=== PATIENT | female | born 1960 | race Caucasian/White ===

== ENCOUNTER 2021-05-02 08:33 | Outpatient (REF) | payer BC, SELFPAY ==
--- NOTE | ~2021-05-02 | MM_ITS ---
EXAMINATION: MM SCREENING DIGITAL BREAST TOMOSYNTHESIS, BILATERAL CLINICAL INFORMATION: Screening. Asymptomatic. The lifetime risk of breast cancer based on the Tyrer-Cuzick Model is 6%. COMPARISON: Mammography: 02/15/2020, 02/12/2019, 08/11/2018, 02/04/2018 TECHNIQUE: Digital breast tomosynthesis is performed in both the craniocaudal and mediolateral oblique views along with computer-aided detection (CAD). Synthesized 2D images are generated from the tomosynthesis. FINDINGS: The breasts are heterogeneously dense, which may obscure small masses (ACR BI-RADS breast composition Category c). Breast parenchymal pattern borders on extremely dense. Distribution of the glandular tissue is similar to prior exams. There is no developing density or interval mass or architectural abnormality. Again, there are scattered bilateral stable punctate calcifications in each breast. No significant changes. MM/MM tomosynthesis screening BI IMPRESSION: No mammographic evidence of malignancy. ASSESSMENT: BI-RADS 2: Benign RECOMMENDATION: Routine annual mammography screening. This patient's information was entered into a reminder system with a target due date for their next mammogram.
== END 2021-05-02 08:34 | disposition home or self-care (01) ==
LOC: HO.MAMMO 08:33
PROVIDERS: PCP Internal Medicine; Visit Provider Internal Medicine
DX: Z12.31 Encounter for screening mammogram for malignant neoplasm of breast (principal)
CPT/HCPCS: 77063; 77067

== ENCOUNTER 2021-11-15 11:45 | Outpatient (REF) | payer BC, SELFPAY ==
--- NOTE | ~2021-11-15 | US_ITS ---
EXAMINATION: US VENOUS WITH DOPPLER UPPER EXTREMITY, LEFT CLINICAL INFORMATION: Pain. COMPARISON: None. TECHNIQUE: Ultrasound of the upper extremity is performed using compression sonography and color and pulse Doppler flow with assessment of augmentation of flow. There is also imaging and Doppler assessment of the jugular and subclavian veins. Spectral analysis with color-flow imaging is performed. FINDINGS: Respiratory variation, normal compression, and augmented flow are noted throughout the upper extremity including the axillary, brachial, cubital, and radial and ulnar veins. There is normal flow in the internal jugular and subclavian veins. There is no visible deep or superficial thrombophlebitis. US/US venous duplex UE LT IMPRESSION: No DVT demonstrated in the left upper extremity.
== END 2021-11-15 11:46 | disposition home or self-care (01) ==
LOC: HO.US 11:45
PROVIDERS: PCP Internal Medicine; Visit Provider Internal Medicine
DX: M79.602 Pain in left arm (principal); M79.89 Other specified soft tissue disorders
CPT/HCPCS: 93971

== ENCOUNTER 2021-11-20 09:09 | Outpatient (REF) | payer BC, SELFPAY ==
[2021-11-20 11:17] LABS: MANUAL DIFF FLAG NO
[2021-11-20 11:24] LABS: Basophils Percent Auto 0.4 % (0-2); Eosinophils Absolute Auto 0.2 X10*3/uL (0.0-0.4); Eosinophils Percent Auto 2.4 % (0-4); Hematocrit 38.2 % (37.0-47.0); Hemoglobin 12.4 g/dl (12.0-16.0); Imm Gran Abs Auto 0.02 X10*3/uL (0.00-0.03); Imm Gran Pct Auto 0.3 % (0.0-0.4); Lymphocytes Absolute Auto 2.4 X10*3/uL (1.2-4.9); Lymphocytes Percent Auto 35.5 % (20-40); Mean Corpuscular HGB Conc 32.5 g/dl (31.0-35.0); Mean Corpuscular Hemoglobin 29.1 pg (27.0-33.0); Mean Corpuscular Volume 89.7 fL (80.0-98.0); Mean Platelet Volume 11.9 fL (9.4-12.3); Monocytes Absolute Auto 0.4 X10*3/uL (0.1-1.2); Monocytes Percent Auto 5.9 % (2-11); Neutrophils Absolute Auto 3.8 x10*3/uL (2.0-8.3); Neutrophils Percent Auto 55.5 % (45-73); Platelet Count 235 X10*3/uL (160-400); Red Blood Count 4.26 X10*6/uL (4.20-5.50); Red Cell Distribution Width 12.7 % (11.0-16.0); White Blood Count 6.8 X10*3/uL (4.8-10.8)
[2021-11-20 11:45] LABS: Appearance Urine TURBID; Color Urine YELLOW; Glucose Urine UA NEG (NEG); Leukocyte Esterase Urine NEG (NEG); Nitrite Urine NEG (NEG); Specific Gravity - Urine >= 1.030 (1.005-1.025); UACC Culture Trigger NO; Urine Blood TRACE (NEG); Urine Ketones NEG (NEG); Urine Protein 1+ MG/DL (NEG-TRACE)
[2021-11-20 11:53] LABS: Alanine Aminotransferase 179 U/L (0-31); Albumin Level 4.2 g/dL (3.5-5.0); Alkaline Phosphatase 97 U/L (39-117); Anion Gap 12 (12-20); Aspartate Amino Transferase 138 U/L (5-31); Bilirubin Total 0.6 mg/dL (0.0-1.0); Blood Urea Nitrogen 14 mg/dL (9-16); Calcium 9.5 mg/dL (8.4-10.2); Carbon Dioxide 25 mmol/L (22-29); Chloride 106 mmol/L (96-108); Cholesterol 171 mg/dL; Estimated Glomerular Filt Rate > 60; Glucose Fasting 204 mg/dL (60-99); HDL Cholesterol 47 mg/dL; LDL Cholesterol Calculated 98 mg/dl; Potassium 3.9 mmol/L (3.3-5.1); Sodium 139 mmol/L (135-145); Total Protein 7.7 g/dL (6.5-8.0); Triglycerides 131 mg/dL
[2021-11-20 11:55] LABS: TSH reflex Free T4 1.36 uIU/mL (0.32-4.0); Vitamin D 25-OH Total 30.8 ng/mL (>30)
[2021-11-20 12:06] LABS: Erythrocyte Sedimentation Rate 5 MM/HR (0-20)
[2021-11-20 12:16] LABS: Amorphous Sediment Urine 4+ /LPF
[2021-11-20 12:17] LABS: Squamous Epithelial Cell Urine 1+ /LPF
[2021-11-20 12:18] LABS: Bacteria Urine 2+ /LPF; RBC Urine 0 /HPF (0); WBC Urine 0 /HPF (0-4)
== END 2021-11-20 09:10 | disposition home or self-care (01) ==
LOC: HO.LAB 09:09
PROVIDERS: Visit Provider Internal Medicine
DX: Z00.00 Encounter for general adult medical examination without abnormal findings (principal); M79.602 Pain in left arm; M79.89 Other specified soft tissue disorders; I10 Essential (primary) hypertension; E78.00 Pure hypercholesterolemia, unspecified; E55.9 Vitamin D deficiency, unspecified
CPT/HCPCS: 36415; 80053; 80061; 81001; 82306; 84443; 85025; 85652

== ENCOUNTER 2021-12-13 09:08 | Outpatient (REF) | payer BC, SELFPAY ==
--- NOTE | ~2021-12-13 | XR_ITS ---
EXAMINATION: XR ELBOW, LEFT CLINICAL INFORMATION: Left elbow pain COMPARISON: 06/03/2018 TECHNIQUE: AP, lateral, and oblique views of the left elbow. FINDINGS: Evidence of a remote, healed radial head fracture with mild articular surface incongruity. This has not significantly changed. There is no acute osseous abnormality. No joint effusion. No new abnormality. Minimal marginal osteophyte formation. XR/XR elbow LT min 3V IMPRESSION: No acute osseous abnormality. Minimal degenerative findings.
== END 2021-12-13 09:09 | disposition home or self-care (01) ==
LOC: HO.HMGCX 09:08
PROVIDERS: PCP Internal Medicine; Visit Provider Internal Medicine
DX: M25.522 Pain in left elbow (principal)
CPT/HCPCS: 73080

== ENCOUNTER → 2021-12-27 09:33 | Outpatient (REF) | payer BC, SELFPAY ==
--- NOTE | 2021-12-27 09:37 | CA_ITS ---
Transthoracic Echocardiogram Patient (Last, First, Middle): Monique Mariano J Gender: Female Date of : 1960 Age: 61 Procedure Date: 12/27/2021 Procedure Type: Transthoracic Echocardiogram Location: OP Height: 162.56 cm Weight: 90.72 kg BSA: 1.96 m2 Heart Rate: bpm BP: 128 / 78 mmHg Funeral Service Apprentice: Referring MD: Portillo Guy MD Symptoms: R00.2 - Palpitations Study Quality: Fair ECG Rhythm: Sinus Conclusions: - The left ventricular systolic function is normal. The calculated ejection fraction is 72% by biplane method. - No obvious valvular pathology seen on this study. Findings Left Ventricle Normal left ventricular cavity size. There is mildly increased left ventricular wall thickness. The left ventricular systolic function is normal. The calculated ejection fraction is 72% by biplane method. There is no evidence of regional wall motion abnormalities. Diastolic function is normal for age. Right Ventricle Normal right ventricular cavity size and systolic function. Atria Both atria are normal in size. Aortic Valve There is a normal trileaflet aortic valve. There is no aortic valve stenosis. There is no aortic valve regurgitation. Mitral Valve The mitral valve appears normal. There is no mitral valve regurgitation. There is no mitral valve stenosis. Pulmonic Valve The pulmonic valve was not well visualized. Tricuspid Valve There is no tricuspid valve regurgitation. The pulmonary artery systolic pressure is normal. Great Vessels The sinuses of valsalva and sino tubular ridge are normal in size. Venous The inferior vena cava is normal in size and collapses greater than 50% with inspiration. Pericardium/Pleural There is no evidence of pericardial effusion. Prior Study Comparison No significant change compared to prior study dated: 04/09/2017. Recommendations, Care & Conclusions No obvious valvular pathology seen on this study. Measurements 2D Linear Measurements IVSd: 1.16 0.6-0.9/0.6-1.0 cm LVIDd: 4.34 3.9-5.3/4.2-5.9 cm LVIDd Index: 2.21 2.4-3.2/2.2-3.1 cm/m2 LVIDs: 2.46 2.0-3.6 cm LVPWd: 1.08 0.7-1.1 cm LA Diam: 3.70 2.7-3.8/3.0-4.0 cm LAIDs Index: 1.89 1.5-2.3 cm/m2 LV Mass: 211.27 67-162/88-224 g LV Mass Index: 107.79 43-95/49-115 g/m2 LVOT Diam: 2.10 3.0+(-)1.3 cm 2D Systolic Function EF 4C: 71.60 >55% EF 2C: 69.70 >55% EF BiP: 71.80 >55% Mitral Valve MV Pk E: 0.74 MV PK A: 0.75 MV Decel Time: 223.00 E/A: 1.00 E'Lateral: 16.10 E'Medial: 8.05 E/E' Med: 9.20 E/E' Lat: 4.60 PHT: 65.00 MVA PHT: 3.38 Decel [place]: 3.32 Aortic Valve AoV Pk Darell: 1.64 AoV Mn Darell: 1.12 AoV VTI: 0.35 AoV Pk Grad: 11.00 Aov Mn Grad: 6.00 TAMMY Cont.VTI: 2.09 LVOT LVOT Pk Darell: 1.07 LVOT Mn Darell: 0.77 LVOT VTI: 0.21 LVOT Pk Grad: 5.00 LVOT Mn Grad: 3.00 LVOT Diam: 2.10 LVOT Area: 3.46 Diastolic Function MV Pk E: 0.74 MV Pk A: 0.75 E/A: 1.00 E'Medial: 8.05 E/E' Med: 9.20 E' Laterial: 16.10 E/E' Lat: 4.60 Tricuspid Valve TR Pk Darell: 2.28 TR Pk Grad: 21.00 RA Press: 3.00 RVSP: 24.00 Great Vessels Aorta Sinus of Valsalva: 3.00 2.0-3.[address] [place]: 2.80 1.7-3.4 cm Pulmonary Valve PV Pk Darell: 1.08 Peak PV Grad: 5.00 Updated in Other Vendor System with Status of Final [place] MD electronically signed on 12/29/2021 4:37:40 PM with status of Final
== END ==
LOC: HO.CARD 09:33
PROVIDERS: PCP Internal Medicine; Visit Provider Internal Medicine
DX: I47.1 Supraventricular tachycardia (principal); R00.2 Palpitations
CPT/HCPCS: 93306

== ENCOUNTER 2022-01-29 10:55 | Outpatient (REF) | payer BC, SELFPAY ==
--- NOTE | ~2022-01-29 | XR_ITS ---
EXAMINATION: XR SHOULDER, LEFT CLINICAL INFORMATION: Left arm pain COMPARISON: None TECHNIQUE: Four views of the left shoulder. FINDINGS: Visualized portion of the proximal left humerus demonstrate no fracture. Humeral head demonstrates good articulation with the glenoid fossa. Mild hypertrophic changes of the acromioclavicular joint. Visualized left-sided ribs and lung parenchyma are unremarkable. XR/XR shoulder LT min 2V IMPRESSION: Minimal degenerative changes of the left shoulder.
== END 2022-01-29 10:56 | disposition home or self-care (01) ==
LOC: HO.HMGCX 10:55
PROVIDERS: Visit Provider Internal Medicine
DX: M25.512 Pain in left shoulder (principal); M79.602 Pain in left arm; M79.89 Other specified soft tissue disorders
CPT/HCPCS: 73030

== ENCOUNTER → 2022-02-12 11:50 | Outpatient (BNVA) | payer BC, SELFPAY | PROVIDERS: PCP Internal Medicine; Referring Provider Internal Medicine; Visit Provider Nurse Practitioner | DX: Z13.89 Encounter for screening for other disorder (principal) ==

== ENCOUNTER 2022-03-12 02:41 | Inpatient (IN) | payer BC, SELFPAY ==
[2022-03-12] VITALS (7 sets, daily range): BP systolic 115–152; BP diastolic 67–77; PULSE 65–78; RESP 15–18; TEMP 36.4–36.6; O2SAT 94–97; BMI 35.9
--- NOTE | ~2022-03-12 | CT_ITS ---
EXAMINATION: CT ABDOMEN AND PELVIS WITHOUT CONTRAST CLINICAL INFORMATION: Flank pain COMPARISON: 05/31/2008 TECHNIQUE: Multidetector volumetric imaging was performed from the superior aspect of the liver through the pubic symphysis. Sagittal and coronal reformatted images were obtained on the technologist's workstation. This CT examination was performed using dose optimization techniques as appropriate, variously including the following: *Automated exposure control *Adjustment of mA and/or kV according to patient size (this includes techniques or standardized protocols for targeted exams where dose is matched to indication/reason for exam; i.e. extremities or head) *Use of iterative reconstruction technique DLP: 891 mGy-cm FINDINGS: LUNG BASES: The visualized lung bases are unremarkable. LIVER, GALLBLADDER, AND BILIARY TREE: The liver is normal in size, shape, and attenuation. No focal hepatic lesion or biliary ductal dilatation is present. Patient is status post cholecystectomy. PANCREAS: Unremarkable. SPLEEN: Unremarkable. ADRENAL GLANDS: Unremarkable. KIDNEYS AND URETERS: There is moderate left hydroureteronephrosis with a 7 mm calculus at or just beyond the left ureterovesicular junction. No right-sided hydronephrosis. BLADDER: Mildly distended with a 7 mm calculus at or just beyond the left ureterovesicular junction. GASTROINTESTINAL TRACT: No evidence of bowel obstruction or significant wall thickening. No free fluid or free air is seen. ABDOMINAL WALL: No significant hernia is appreciated. LYMPH NODES: Normal. VASCULAR: Scattered atherosclerotic calcifications are noted. PELVIC VISCERA: Unremarkable. OSSEOUS STRUCTURES: Unremarkable. CT/CT abdomen pelvis wo con IMPRESSION: Moderate left hydroureteronephrosis with a 7 mm calculus at or just beyond the left ureterovesicular junction.
--- NOTE | ~2022-03-12 | FL_ITS ---
EXAMINATION: XR FLUOROSCOPY WITH IMAGES CLINICAL INFORMATION: Ureteroscopy, laser retrograde, left side. COMPARISON: CT of 03/12/2022. TECHNIQUE: Fluoroscopy performed by Dr. Loyola. FLUOROSCOPY TIME: 17.4%) minutes FLUOROSCOPIC IMAGES: Images: 2 DLP: 7.43 mGy-cm FINDINGS: One image demonstrates some contrast within the distal left ureter with question density and some periureteral contrast. The second image demonstrates a wire in place in the expected location of the left ureter. FL/FL guidance in OR IMPRESSION: Left retrograde ureterography.
[2022-03-12 03:20] LABS: Basophils Percent Auto 0.3 % (0-2); Eosinophils Absolute Auto 0.2 X10*3/uL (0.0-0.4); Eosinophils Percent Auto 2.8 % (0-4); Hematocrit 35.9 % (37.0-47.0); Hemoglobin 11.9 g/dl (12.0-16.0); Imm Gran Abs Auto 0.02 X10*3/uL (0.00-0.03); Imm Gran Pct Auto 0.3 % (0.0-0.4); Lymphocytes Absolute Auto 1.8 X10*3/uL (1.2-4.9); Lymphocytes Percent Auto 28.5 % (20-40); MANUAL DIFF FLAG NO; Mean Corpuscular HGB Conc 33.1 g/dl (31.0-35.0); Mean Corpuscular Hemoglobin 29.4 pg (27.0-33.0); Mean Corpuscular Volume 88.6 fL (80.0-98.0); Mean Platelet Volume 11.8 fL (9.4-12.3); Monocytes Absolute Auto 0.5 X10*3/uL (0.1-1.2); Monocytes Percent Auto 8.1 % (2-11); Neutrophils Absolute Auto 3.8 x10*3/uL (2.0-8.3); Platelet Count 211 X10*3/uL (160-400); Red Blood Count 4.05 X10*6/uL (4.20-5.50); Red Cell Distribution Width 12.7 % (11.0-16.0); White Blood Count 6.3 X10*3/uL (4.8-10.8)
[2022-03-12 03:21] LABS: Appearance Urine CLEAR; Color Urine YELLOW; Glucose Urine UA >=1000 MG/DL (NEG); Leukocyte Esterase Urine NEG (NEG); Nitrite Urine NEG (NEG); UACC Culture Trigger NO; Urine Blood 1+ (NEG); Urine Ketones NEG (NEG); Urine Protein NEG (NEG-TRACE)
[2022-03-12 03:27] LABS: Bacteria Urine 2+ /LPF; Squamous Epithelial Cell Urine 2+ /LPF
[2022-03-12 03:40] LABS: Alanine Aminotransferase 167 U/L (0-31); Albumin Level 3.9 g/dL (3.5-5.0); Alkaline Phosphatase 141 U/L (39-117); Anion Gap 16 (12-20); Aspartate Amino Transferase 164 U/L (5-31); Bilirubin Direct < 0.2 mg/dL (0.0-0.5); Bilirubin Total 0.4 mg/dL (0.0-1.0); Blood Urea Nitrogen 15 mg/dL (9-16); Calcium 9.8 mg/dL (8.4-10.2); Carbon Dioxide 21 mmol/L (22-29); Chloride 103 mmol/L (96-108); Creatinine Clr Calc Pharmacy 64.1; Estimated Glomerular Filt Rate 54; Glucose Random 462 mg/dL (60-115); Lipase 46 U/L (8-78); Potassium 4.7 mmol/L (3.3-5.1); Sodium 135 mmol/L (135-145); Total Protein 7.8 g/dL (6.5-8.0)
[2022-03-12 03:54] LABS: Acetone, serum QL Negative (Negative)
--- NOTE | 2022-03-12 04:03 | ED_ITS ---
HPI - Female Genitourinary General Chief complaint: Urogenital-Female Stated complaint: kidney stones Time Seen by Provider: 03/12/22 03:39 Source: patient and other Mode of arrival: ambulatory History of Present Illness HPI Narrative: 61-year-old female who presents with left flank pain that started approximately midnight and is radiating into the left lower quadrant but she denies any dysuria and denies any nausea or vomiting. Patient states she did have previous kidney stones but that was years ago. She also denies any fever chills. She does endorse that she has polyuria as well as polydipsia and has an appointment this Saturday with Dr. Guy. Related Data Home Medications Medication Instructions Recorded Confirmed clobetasol 0.05 % lotion 1 appl TOPICAL BID PRN 10/18/20 11/15/21 Previous Rx's Medication Instructions Recorded ibuprofen 800 mg tablet 800 mg PO TID PRN 90 Days #270 tab 05/15/21 olmesartan 40 mg-amlodipine 5 1 tab PO DAILY #90 tab 09/08/21 mg-hydrochlorothiazide 25 mg tablet metoprolol succinate 25 mg 25 mg PO DAILY #90 tab 11/15/21 tablet,extended release 24 hr pantoprazole 40 mg tablet,delayed 40 mg PO DAILY #90 tab 11/15/21 release peg 3350-electrolytes 236 240 ml PO Q10M 1 Days #4000 ml 02/12/22 gram-22.74 gram-6.74 gram-5.86 gram solution (Golytely) sucralfate 1 gram tablet (Carafate) 1 g PO DAILY #30 tab 02/12/22 ergocalciferol (vitamin D2) 1,250 1,250 mcg PO QWEEK #12 cap 02/19/22 mcg (50,000 unit) capsule (Vitamin D2) Allergies Allergy/AdvReac Type Severity Reaction Status Date / Time carbamazepine [From Tegretol] Allergy Intermediate RASH Verified 03/12/22 02:43 divalproex sodium Allergy Intermediate RASH Verified 03/12/22 02:43 [From Depakote] Iodinated Contrast Media Allergy Intermediate HIVES Verified 03/12/22 02:43 [IV Dye, Iodine Containing] IVP dye Allergy Unknown hives Uncoded 03/12/22 02:43 Review of Systems Review of Systems: Pertinent positives and negatives as stated in HPI 10 point review of systems is otherwise PMFSH Past Medical History Source: nursing notes reviewed Medical History Benign essential hypertension GERD (gastroesophageal reflux disease) Migraine Obesity (BMI 30-39.9) SVT (supraventricular tachycardia) (Unknown) Vitamin D deficiency Surgical History History of ankle surgery S/P appendectomy S/P breast biopsy S/P cholecystectomy Family History Family History Father Heart disease Hypertension Mother Heart disease Hypertension Diabetes mellitus Maternal Grandmother No problems noted. Maternal Grandfather No problems noted. Paternal Grandfather No problems noted. 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 GENERAL: Well developed, well nourished, in no acute distress. HEAD: Normocephalic/atraumatic EYES: PERRLA, EOMI EARS: Ext canals without abnormality OROPHARYNX: no oral lesions noted, posterior pharynx clear LUNGS: Normal breath sounds. No adventitious sounds or accessory muscle use. SpO2<94> CARDIOVASCULAR: Regular rate and rhythm without noted murmurs ABDOMEN: Soft, non-tender, non-distended with bowel sounds, no CVA tenderness NEUROLOGIC: Alert and oriented x 4. Strength and sensation to light touch were grossly intact x 4. Course Course Course Narrative: 61-year-old female with history and clinical presentation consistent with renal colic. On review of all investigations patient is noted to be hyperglycemic without the presence of acetones and she also has a 7 mm stone with hydronephrosis. She is receiving IV fluids, pain medications in this case was discussed with the urologist who recommends admission to Medicine, pain control. I discussed the case with the inpatient hospitalist who accepts the patient. Patient was informed of all results and plans. MDM - Female Genitourinary Lab Data Result diagrams: 03/12/22 03:16 03/12/22 03:16 Labs: Lab Results 03/12/22 03/12/22 03/12/22 Range/Units 03:11 03:16 03:16 WBC 6.3 (4.8-10.8) X10*3/uL RBC 4.05 L (4.20-5.50) X10*6/uL Hgb 11.9 L (12.0-16.0) g/dl Hct 35.9 L (37.0-47.0) % MCV 88.6 (80.0-98.0) fL MCH 29.4 (27.0-33.0) pg MCHC 33.1 (31.0-35.0) g/dl RDW 12.7 (11.0-16.0) % Plt Count 211 (160-400) X10*3/uL MPV 11.8 (9.4-12.3) fL Immature Gran % (Auto) 0.3 (0.0-0.4) % Neut % (Auto) 60.0 (45-73) % Lymph % (Auto) 28.5 (20-40) % [place] % (Auto) 8.1 (2-11) % Eos % (Auto) 2.8 (0-4) % Baso % (Auto) 0.3 (0-2) % Lymph # (Auto) 1.8 (1.2-4.9) X10*3/uL [place] # (Auto) 0.5 (0.1-1.2) X10*3/uL Eos # (Auto) 0.2 (0.0-0.4) X10*3/uL Baso # (Auto) 0.0 (0.0-0.2) X10*3/uL Abs Immat Gran (auto) 0.02 (0.00-0.03) X10*3/uL Absolute Neuts (auto) 3.8 (2.0-8.3) x10*3/uL Absolute Nucleated RBC 0.000 (0.0-0.012) X10*3/uL Nucleated RBC % (auto) 0.0 (0.0-0.2) /100WBC Sodium 135 (135-145) mmol/L Potassium 4.7 D (3.3-5.1) mmol/L Chloride 103 (96-108) mmol/L Carbon Dioxide 21 L (22-29) mmol/L Anion Gap 16 (12-20) BUN 15 (9-16) mg/dL Creatinine 1.03 (0.5-1.4) mg/dL Estim Creat Clear Calc 64.1 Estimated GFR 54 Random Glucose 462 H* (60-115) mg/dL Calcium 9.8 (8.4-10.2) mg/dL Total Bilirubin 0.4 (0.0-1.0) mg/dL Direct Bilirubin < 0.2 (0.0-0.5) mg/dL AST 164 H (5-31) U/L ALT 167 H (0-31) U/L Alkaline Phosphatase 141 H D (39-117) U/L Total Protein 7.8 (6.5-8.0) g/dL Albumin 3.9 (3.5-5.0) g/dL Lipase 46 (8-78) U/L Urine Color YELLOW Urine Appearance CLEAR Urine pH 6.0 (5.0-8.0) Ur Specific [place] 1.010 (1.005-1.025) Urine Protein NEG (NEG-TRACE) MG/DL Urine Glucose (UA) >=1000 H (NEG) MG/DL Urine Ketones NEG (NEG) MG/DL Urine Blood 1+ H (NEG) Urine Nitrite NEG (NEG) Ur Leukocyte Esterase NEG (NEG) Urine RBC 10-14 H (0) /HPF Urine WBC 5-9 H (0-4) /HPF Ur Squamous Epith Cells 2+ /LPF Urine Bacteria 2+ /LPF Acetone, Qual Negative (Negative) Discharge Plan Discharge Clinical Impression: Renal colic, SVT (supraventricular tachycardia), Hydronephrosis, Ureterolithiasis, Diabetes mellitus, new onset Patient Disposition: Admitted As Inpatient Prescriptions: No Action bgoswnswtr-platwetio-pdjzwrpew 40-5-25 mg tablet 1 tab PO DAILY Qty: 90 3RF ergocalciferol (vitamin D2) [Vitamin D2] 1,250 mcg (50,000 unit) capsule 1,250 mcg PO QWEEK Qty: 12 3RF clobetasol 0.05 % lotion 1 appl topical BID PRN0RF ibuprofen 800 mg tablet 800 mg PO TID PRN (Reason: pain or headaches) 90 Days Qty: 270 1RF Rx Instructions: Take WITH FOOD pantoprazole 40 mg tablet,delayed release (DR/EC) 40 mg PO DAILY Qty: 90 3RF metoprolol succinate 25 mg tablet extended release 24 hr 25 mg PO DAILY Qty: 90 3RF peg 3350-electrolytes [Golytely] 236-22.74-6.74 -5.86 gram recon soln 240 ml PO Q10M 1 Days Qty: 4000 0RF Rx Instructions: until fecal effluent is clear; do not exceed a total volume of 2,000 mL sucralfate [Carafate] 1 gram tablet 1 g PO DAILY Qty: 30 6RF
[2022-03-12] MEDS: 0.9 % Sodium Chloride 1,000 ML 999 ML IV (04:08)
[2022-03-12] MEDS: Ketorolac Tromethamine 30 MG/ML VIAL 15 MG IVPUSH (04:08)
[2022-03-12] MEDS: HYDROmorphone HCl 0.5 MG/0.5 ML SYRINGE 0.25 MG IVPUSH (05:18)
--- NOTE | 2022-03-12 05:22 | PC.NURSE ---
POC [address] Mehta
[2022-03-12 05:30] LABS: COVID-19 Test Negative (Negative)
--- NOTE | 2022-03-12 06:23 | PM.IMHP ---
History of Present Illness Date of Service: 03/12/22 Chief Complaint: left flank pain 61-year-old female with a past medical history of hypertension, History of kidney stone,ex-smoker presented to the hospital today with a chief complaint of left flank pain. Patient reports that last night she woke up with left flank pain, 8 of 10 in in density, no associated nausea vomiting; reports the pain is radiating from the groin; denies any blood in the urine. Reports for the past few days she has been having urinary frequency. Denies any fevers and chills. Denies any chest pain or palpitations. Patient also reports he has been having polyuria and polydipsia. Review of all other systems is negative except mentioned above ER course: Per ER team patient's CT scan showed 7 mm calculus at the left UVJ with moderate hydronephrosis; given pain medications; also noted to have elevated blood sugar levels of to 400; concern for new onset diabetes. Given IV fluids. Admitted for further management. [facility] Medical History Benign essential hypertension GERD (gastroesophageal reflux disease) Migraine Obesity (BMI 30-39.9) SVT (supraventricular tachycardia) (Unknown) Vitamin D deficiency Family History Father Heart disease Hypertension Mother Heart disease Hypertension Diabetes mellitus Maternal Grandmother No problems noted. Maternal Grandfather No problems noted. Paternal Grandfather No problems noted. 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 Meds Allergies Allergy/AdvReac Type Severity Reaction Status Date / Time carbamazepine [From Tegretol] Allergy Intermediate RASH Verified 03/12/22 02:43 divalproex sodium Allergy Intermediate RASH Verified 03/12/22 02:43 [From Depakote] Iodinated Contrast Media Allergy Intermediate HIVES Verified 03/12/22 02:43 [IV Dye, Iodine Containing] IVP dye Allergy Unknown hives Uncoded 03/12/22 02:43 Physical Exam Vital Signs and Narrative: Vital Signs: Last Vital Signs Temp 97.5 F 03/12/22 04:03 Pulse 65 03/12/22 06:00 Resp 15 03/12/22 06:00 BP 134/74 03/12/22 06:00 Pulse Ox 97 03/12/22 06:00 BMI result Body Mass Index 35.9 Gen: Appears be in no acute distress HEENT: NCAT, Moist mucosa. Pulmonary: Vesicular breath sounds, fair air entry CVS: Normal S1-S2 Abdomen: BS+, Soft, Nontender-> patient is status post pain medication in the ER. No CVA tenderness Extremities: Warm well perfused Neuro: Alert and awake. Results Labs CBC and Chem 7: 03/12/22 03:16 03/12/22 03:16 Labs: Laboratory Results - last 24 hr 03/12/22 03/12/22 03/12/22 03:11 03:16 03:16 MCV 88.6 MCH 29.4 MCHC 33.1 RDW 12.7 Plt Count 211 MPV 11.8 Immature Gran % (Auto) 0.3 Neut % (Auto) 60.0 Lymph % (Auto) 28.5 [place] % (Auto) 8.1 Eos % (Auto) 2.8 Baso % (Auto) 0.3 Lymph # (Auto) 1.8 [place] # (Auto) 0.5 Eos # (Auto) 0.2 Baso # (Auto) 0.0 Abs Immat Gran (auto) 0.02 Absolute Neuts (auto) 3.8 Absolute Nucleated RBC 0.000 Nucleated RBC % (auto) 0.0 Anion Gap 16 Estim Creat Clear Calc 64.1 Estimated GFR 54 Random Glucose 462 H* Calcium 9.8 Total Bilirubin 0.4 Direct Bilirubin < 0.2 AST 164 H ALT 167 H Alkaline Phosphatase 141 H D Total Protein 7.8 Albumin 3.9 Lipase 46 Urine Color YELLOW Urine Appearance CLEAR Urine pH 6.0 Ur Specific [place] 1.010 Urine Protein NEG Urine Glucose (UA) >=1000 H Urine Ketones NEG Urine Blood 1+ H Urine Nitrite NEG Ur Leukocyte Esterase NEG Urine RBC 10-14 H Urine WBC 5-9 H Ur Squamous Epith Cells 2+ Urine Bacteria 2+ Acetone, Qual Negative COVID-19 ([facility]) COVID-19 Clin Com 03/12/22 05:10 MCV MCH MCHC RDW Plt Count MPV Immature Gran % (Auto) Neut % (Auto) Lymph % (Auto) [place] % (Auto) Eos % (Auto) Baso % (Auto) Lymph # (Auto) [place] # (Auto) Eos # (Auto) Baso # (Auto) Abs Immat Gran (auto) Absolute Neuts (auto) Absolute Nucleated RBC Nucleated RBC % (auto) Anion Gap Estim Creat Clear Calc Estimated GFR Random Glucose Calcium Total Bilirubin Direct Bilirubin AST ALT Alkaline Phosphatase Total Protein Albumin Lipase Urine Color Urine Appearance Urine pH Ur Specific [place] Urine Protein Urine Glucose (UA) Urine Ketones Urine Blood Urine Nitrite Ur Leukocyte Esterase Urine RBC Urine WBC Ur Squamous Epith Cells Urine Bacteria Acetone, Qual COVID-19 (REINALDO) Negative COVID-19 Clin Com See Note Imaging Radiologist's Impressions: Impressions Abdomen/Pelvis CT 03/12/22 03:55 IMPRESSION: Moderate left hydroureteronephrosis with a 7 mm calculus at or just beyond the left ureterovesicular junction. Assessment and Plan (1) Renal colic: Status: Acute (2) Hydronephrosis: Status: Acute (3) Diabetes mellitus, new onset: Status: Acute Plan 61-year-old female with a past medical history of hypertension, History of kidney stone,ex-smoker presented to the hospital today with a chief complaint of left flank pain. Noted to have left UVJ kidney stone with hydronephrosis. Admitted for further management. Left UVJ calculus/moderate left hydronephrosis: Stone measuring 7 mm Flomax Pain control Urology consult UTI: Ceftriaxone. Follow up cultures. New onset diabetes: Will obtain hemoglobin A1c. Will give the patient on Lantus 10 units plus insulin sliding scale. History of hypertension: Continue home metoprolol succinate. Hold home olmesartan/ amlodipine / hydrochlorothiazide combination tablet for now. DVT prophylaxis: Lovenox Code status: Full code Quality Stroke Does the patient have a stroke diagnosis?: No VTE Prior VTE?: No VTE Risk Level:: Medical - moderate - high VTE Device Contraindication: Treatment Not Indicated VTE Drug Contraindication: N/A - Med Ordered
[2022-03-12 07:21] LABS: Glucose, Whole Blood 306 mg/dL (60-115)
[2022-03-12 07:21] LABS: Glucose, Whole Blood 371 mg/dL (60-115)
--- NOTE | 2022-03-12 08:36 | PC.NURSE ---
poc glucose 302, pt remains npo at this time according to hospitalist, awaiting to see if need for surgical intervention necessary today. holding insulin at this time.
--- NOTE | 2022-03-12 08:42 | PHA.MEDREC ---
Pharmacy Consult ? Medication Reconciliation Pharmacy has completed the medication reconciliation.
[2022-03-12 08:57] LABS: Estimated Average Glucose 260 mg/dL; Hemoglobin A1c % 10.7 %
[2022-03-12] MEDS: cefTRIAXone sodium 1 GM in 0.9 % Sodium Chloride 50 ML IV (10:08)
[2022-03-12] MEDS: Metoprolol Succinate ER 25 MG TAB.ER.24H PO (10:10)
[2022-03-12] MEDS: Enoxaparin Sodium 40 MG/0.4 ML SYRINGE SUBCUT (10:14)
--- NOTE | 2022-03-12 12:10 | PM.EVENT ---
Event Note Date of Service: 03/12/22 Event Note: Patient seen/examined; Admitted this morning for kidney stone, pain is better. Urology is planning intervention tomorrow. NPO after midnight
[2022-03-12 13:26] LABS: Glucose, Whole Blood 262 mg/dL (60-115)
[2022-03-12] MEDS: Insulin Lispro 100 UNIT/ML 3 ML VIAL SUBCUT ×3 (13:27→21:26)
[2022-03-12] MEDS: Acetaminophen 325 MG TABLET 650 MG PO (13:38)
[2022-03-12 17:34] LABS: Glucose, Whole Blood 184 mg/dL (60-115)
[2022-03-12 21:21] LABS: Glucose, Whole Blood 174 mg/dL (60-115)
[2022-03-12] MEDS: Insulin Glargine,Hum.rec.anlog 100 UNIT/ML 10 ML VIAL 10 UNIT SUBCUT (21:25)
[2022-03-13] VITALS (14 sets, daily range): BP systolic 112–165; BP diastolic 58–85; PULSE 63–71; RESP 14–20; TEMP 36.2–36.9; O2SAT 94–100; BMI 35.9
[2022-03-13] MEDS: 0.9 % Sodium Chloride Flush 3 ML SYRINGE IVFLUSH ×3 (01:54→20:38)
[2022-03-13 05:35] LABS: MANUAL DIFF FLAG NO
[2022-03-13 05:38] LABS: Basophils Percent Auto 0.4 % (0-2); Eosinophils Absolute Auto 0.1 X10*3/uL (0.0-0.4); Eosinophils Percent Auto 2.5 % (0-4); Hematocrit 39.1 % (37.0-47.0); Hemoglobin 11.8 g/dl (12.0-16.0); Imm Gran Abs Auto 0.02 X10*3/uL (0.00-0.03); Imm Gran Pct Auto 0.4 % (0.0-0.4); Lymphocytes Absolute Auto 1.7 X10*3/uL (1.2-4.9); Lymphocytes Percent Auto 31.2 % (20-40); Mean Corpuscular HGB Conc 30.2 g/dl (31.0-35.0); Mean Corpuscular Hemoglobin 29.1 pg (27.0-33.0); Mean Corpuscular Volume 96.5 fL (80.0-98.0); Mean Platelet Volume 12.3 fL (9.4-12.3); Monocytes Absolute Auto 0.4 X10*3/uL (0.1-1.2); Monocytes Percent Auto 7.4 % (2-11); Neutrophils Absolute Auto 3.2 x10*3/uL (2.0-8.3); Neutrophils Percent Auto 58.1 % (45-73); Platelet Count 152 X10*3/uL (160-400); Red Blood Count 4.05 X10*6/uL (4.20-5.50); Red Cell Distribution Width 12.8 % (11.0-16.0); White Blood Count 5.6 X10*3/uL (4.8-10.8)
[2022-03-13 05:55] LABS: Anion Gap 13 (12-20); Blood Urea Nitrogen 14 mg/dL (9-16); Calcium 9.4 mg/dL (8.4-10.2); Carbon Dioxide 24 mmol/L (22-29); Chloride 106 mmol/L (96-108); Creatinine Clr Calc Pharmacy 91.7; Estimated Glomerular Filt Rate > 60; Glucose Random 208 mg/dL (60-115); Sodium 139 mmol/L (135-145)
[2022-03-13] MEDS: cefTRIAXone sodium 1 GM in 0.9 % Sodium Chloride 50 ML IV (07:38)
[2022-03-13] MEDS: Metoprolol Succinate ER 25 MG TAB.ER.24H PO (07:39)
[2022-03-13] MEDS: Insulin Lispro 100 UNIT/ML 3 ML VIAL SUBCUT ×2 (07:41→20:39)
[2022-03-13 08:06] LABS: Glucose, Whole Blood 204 mg/dL (60-115)
--- NOTE | 2022-03-13 08:46 | P.CNUR_ITS ---
History of Present Illness Consult details Consult date: 03/13/22 Narrative: Monique is a pleasant female. Known kidney stone former Present through emergency room with left-sided flank pain Imaging shows 7 mm distal left ureteric stone with hydroureteronephrosis Concomitant diagnoses new onset diabetes HbA1c 10.7, blood sugar 300 Creatinine 0.72, calcium 9.4, WBC 5.6 Recommend intervention Will be organized for later today Review of Systems Constitutional: Constitutional: Reports as per HPI and Reports no additional constitutional complaints Cardiovascular: Cardiovascular: Reports as per HPI and Reports no additional cardiovascular complaints Respiratory: Respiratory: Reports as per HPI and Reports no additional respiratory complaints Gastrointestinal: Gastrointestinal: Reports as per HPI and Reports no additional gastrointestinal complaints Genitourinary: Genitourinary: Reports as per HPI Musculoskeletal: Musculoskeletal: Reports no additional musculoskeletal complaints and Reports as per HPI Neurologic: Reports system reviewed and no additional complaints, except as documented and Reports as per HPI [facility] Past Medical History Medical History Benign essential hypertension GERD (gastroesophageal reflux disease) Migraine Obesity (BMI 30-39.9) SVT (supraventricular tachycardia) (Unknown) Vitamin D deficiency Family History Family History Father Heart disease Hypertension Mother Heart disease Hypertension Diabetes mellitus Maternal Grandmother No problems noted. Maternal Grandfather No problems noted. Paternal Grandfather No problems noted. 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 Meds Allergies Allergy/AdvReac Type Severity Reaction Status Date / Time carbamazepine [From Tegretol] Allergy Intermediate RASH Verified 03/12/22 02:43 divalproex sodium Allergy Intermediate RASH Verified 03/12/22 02:43 [From Depakote] Iodinated Contrast Media Allergy Intermediate HIVES Verified 03/12/22 02:43 [IV Dye, Iodine Containing] IVP dye Allergy Unknown hives Uncoded 03/12/22 02:43 Active Medications: Current Medications Acetaminophen (Acetaminophen 325 Mg Tablet) 650 mg PO Q6H PRN PRN Reason: Pain, Mild (Pain Scale 1-3) Last Admin: 03/12/22 13:38 Dose: 650 mg Documented by: Dextrose (Dextrose 50 % 25 Gm/50 Ml Syringe) 25 gm IVPUSH Q15M PRN; Protocol PRN Reason: per Hypoglycemia Standing Ord. Enoxaparin Sodium (Enoxaparin Sodium 40 Mg/0.4 Ml Syringe) 40 mg SUBCUT Q24H [facility] Last Admin: 03/13/22 08:03 Dose: Not Given Documented by: Glucose (Glucose Gel 15 Gm Gel..Gram.) 15 gm PO Q15M PRN; Protocol PRN Reason: per Hypoglycemia Standing Ord. Hydromorphone HCl (Hydromorphone Hcl 1 Mg/Ml Syringe) 0.5 mg IVPUSH Q4H PRN; Protocol PRN Reason: Pain, Severe (Pain Scale 7-10) Ceftriaxone Sodium 1 gm/ (Sodium Chloride) 50 mls @ 100 mls/hr IV Q24H [facility] Last Admin: 03/13/22 07:38 Dose: 100 mls/hr Documented by: Insulin Glargine (Insulin Glargine,Hum.Rec.Anlog 100 Unit/Ml 10 Ml Vial) 10 uni t SUBCUT BEDTIME [facility] Last Admin: 03/12/22 21:25 Dose: 10 unit Documented by: Insulin Human Lispro (Insulin Lispro 100 Unit/Ml 3 Ml Vial) 0 unit SUBCUT QIDACHS [facility]; Protocol Last Admin: 03/13/22 07:41 Dose: 4 unit Documented by: Melatonin (Melatonin 3 Mg Tablet) 6 mg PO BEDTIME PRN PRN Reason: Insomnia Metoprolol Succinate (Metoprolol Succinate Er 25 Mg Tab.Er.24h) 25 mg PO DAILY [facility]; Protocol Last Admin: 03/13/22 07:39 Dose: 25 mg Documented by: Senna (Sennosides 8.6 Mg Tablet) 17.2 mg PO BEDTIME PRN PRN Reason: Constipation Sodium Chloride (0.9 % Sodium Chloride Flush 3 Ml Syringe) 3 ml IVFLUSH QSHIFT [facility] Last Admin: 03/13/22 07:39 Dose: 3 ml Documented by: Home Medications Medication Instructions Recorded Confirmed Last Taken Type ergocalciferol (vitamin D2) 1,250 1,250 mcg PO MONROY@1000 03/12/22 03/12/22 Unknown History mcg (50,000 unit) capsule (Vitamin D2) Physical Exam Vital Signs: Vital Signs: Last Vital Signs Temp 97.8 F 03/13/22 07:19 Pulse 69 03/13/22 07:19 Resp 18 03/13/22 07:19 BP 138/61 03/13/22 07:19 Pulse Ox 96 03/13/22 07:19 BMI result Body Mass Index 35.9 Const: General: cooperative, healthy appearing, comfortable and no acute distress Orientation/consciousness: patient oriented x3 HEENT: Face and sinus: Yes normal facial exam Mouth: moist mucous membranes Neck: Neck: Yes normal visual inspection, Yes full ROM and Yes trachea midline Chest: Chest palpation & inspection: normal inspection of the chest Resp: Effort & Inspection: normal respiratory effort, able to speak in complete sentences and no respiratory distress GI: Inspection: Yes normal to inspection Back/Spine/Pelvis: Cervical Spine: normal cervical lordosis Thoracic/Lumbar Spine: thoracic and lumbar spine normal to inspection Skin: General skin exam: no rashes or lesions noted Neuro: General: patient oriented x3, tone normal and moves all extremities Extrem: General: Yes normal to inspection and Yes capillary refill normal Results Labs Result diagrams: 03/13/22 05:13 03/13/22 05:13 Labs: Abnormal lab results 03/12/22 03/12/22 03/12/22 Range/Units 13:20 17:28 21:17 RBC (4.20-5.50) X10*6/uL Hgb (12.0-16.0) g/dl MCHC (31.0-35.0) g/dl Plt Count (160-400) X10*3/uL POC Glucose 262 H 184 H 174 H (60-115) mg/dL Random Glucose (60-115) mg/dL 03/13/22 03/13/22 03/13/22 Range/Units 05:13 05:13 07:19 RBC 4.05 L (4.20-5.50) X10*6/uL Hgb 11.8 L (12.0-16.0) g/dl MCHC 30.2 L (31.0-35.0) g/dl Plt Count 152 L D (160-400) X10*3/uL POC Glucose 204 H (60-115) mg/dL Random Glucose 208 H (60-115) mg/dL Short CBC 03/13/22 Range/Units 05:13 WBC 5.6 (4.8-10.8) X10*3/uL Hgb 11.8 L (12.0-16.0) g/dl Hct 39.1 (37.0-47.0) % Plt Count 152 L D (160-400) X10*3/uL BMP 03/13/22 05:13 Sodium 139 Potassium 4.0 Chloride 106 Carbon Dioxide 24 BUN 14 Creatinine 0.72 Calcium 9.4 Urine 03/12/22 Range/Units 03:11 Urine Color YELLOW Urine Appearance CLEAR Urine pH 6.0 (5.0-8.0) Ur Specific Brilliant 1.010 (1.005-1.025) Urine Protein NEG (NEG-TRACE) MG/DL Urine Glucose (UA) >=1000 H (NEG) MG/DL All other labs normal. Assessment and Plan (1) Ureterolithiasis: Status: Acute (2) Diabetes mellitus, new onset: Status: Acute Plan Ureteroscopy We discussed the nature of the decision and reasonable alternatives for performing the above surgery. Interventions include chemical dissolution, ESWL, ureteroscopy with laser lithotripsy and stent placement, PCNL. Options such as medical therapy were discussed. The relative uncertainties and benefits related to each alternate procedure were adequately discussed. General surgical risks including, but not limited to, pain, bleeding, infection, myocardial infarction, pulmonary embolus, deep vein thrombosis and cerebrovascular accident which may result in further hospitalization were discussed. Full disclosure of the procedure as well as all major risks, benefits and complications were discussed including but not limited to damage to the urethra, bladder and kidney infection, damage to the ureter, stent migration or malposition, scarring to the renal pelvis, remnant stone fragments, subsequent stone passage with need for secondary procedures. The overall secondary procedure rate is approximately 10-15%. The success rate of the procedure was discussed. Success of the procedure in the short-term does not necessarily guarantee that long-term success will be maintained. Suitable follow up will need to be maintained. The patient showed understanding of discussion and wishes to proceed with - cystoscopy, retrograde, ureteroscopy, possible lithotripsy/stone basketing and stent on the left side Procedures Date of Service Date of Service: 03/13/22
--- NOTE | 2022-03-13 08:55 | P.PNIM_ITS ---
Subjective Subjective Date of Service: 03/14/22 Interval History: f/u on kidney stone pain is controlled, for or today Physical Exam Vital Signs: Vital Signs: Last Vital Signs Temp 97.8 F 03/13/22 07:19 Pulse 69 03/13/22 07:19 Resp 18 03/13/22 07:19 BP 138/61 03/13/22 07:19 Pulse Ox 96 03/13/22 07:19 BMI result Body Mass Index 35.9 Const: Other: General: AO X 3, no acute distress Resp: CTA bilateral CVS: S1,S2,RRR GI: +BS, NT, no distention Skin: No rash Neuro: motor grossly intact Psych: appropriate affect Objective Data Active Medications Acetaminophen (Acetaminophen 325 Mg Tablet) 650 mg PO Q6H PRN PRN Reason: Pain, Mild (Pain Scale 1-3) Last Admin: 03/12/22 13:38 Dose: 650 mg Documented by: ZITA Dextrose (Dextrose 50 % 25 Gm/50 Ml Syringe) 25 gm IVPUSH Q15M PRN; Protocol PRN Reason: per Hypoglycemia Standing Ord. Enoxaparin Sodium (Enoxaparin Sodium 40 Mg/0.4 Ml Syringe) 40 mg SUBCUT Q24H [facility] Last Admin: 03/13/22 08:03 Dose: Not Given Documented by: YARY Non-Admin Reason: Physician Held Med Glucose (Glucose Gel 15 Gm Gel..Gram.) 15 gm PO Q15M PRN; Protocol PRN Reason: per Hypoglycemia Standing Ord. Hydromorphone HCl (Hydromorphone Hcl 1 Mg/Ml Syringe) 0.5 mg IVPUSH Q4H PRN; Protocol PRN Reason: Pain, Severe (Pain Scale 7-10) Ceftriaxone Sodium 1 gm/ (Sodium Chloride) 50 mls @ 100 mls/hr IV Q24H [facility] Last Admin: 03/13/22 07:38 Dose: 100 mls/hr Documented by: YARY Levofloxacin (Levaquin) 500 mg in 100 mls @ 100 mls/hr IV PREOP ONE Stop: 03/13/22 09:48 Insulin Glargine (Insulin Glargine,Hum.Rec.Anlog 100 Unit/Ml 10 Ml Vial) 10 unit SUBCUT BEDTIME [facility] Last Admin: 03/12/22 21:25 Dose: 10 unit Documented by: CHAPARRITA Insulin Human Lispro (Insulin Lispro 100 Unit/Ml 3 Ml Vial) 0 unit SUBCUT QIDACHS [facility]; Protocol Last Admin: 03/13/22 07:41 Dose: 4 unit Documented by: YARY Melatonin (Melatonin 3 Mg Tablet) 6 mg PO BEDTIME PRN PRN Reason: Insomnia Metoprolol Succinate (Metoprolol Succinate Er 25 Mg Tab.Er.24h) 25 mg PO DAILY [facility]; Protocol Last Admin: 03/13/22 07:39 Dose: 25 mg Documented by: YARY Senna (Sennosides 8.6 Mg Tablet) 17.2 mg PO BEDTIME PRN PRN Reason: Constipation Sodium Chloride (0.9 % Sodium Chloride Flush 3 Ml Syringe) 3 ml IVFLUSH QSHIFT [facility] Last Admin: 03/13/22 07:39 Dose: 3 ml Documented by: YARY Labs CBC & Chem 7: 03/13/22 05:13 03/13/22 05:13 Labs: Laboratory Results - last 24 hr 03/12/22 03/12/22 03/12/22 07:14 13:20 17:28 MCV MCH MCHC RDW Plt Count MPV Immature Gran % (Auto) Neut % (Auto) Lymph % (Auto) [place] % (Auto) Eos % (Auto) Baso % (Auto) Lymph # (Auto) [place] # (Auto) Eos # (Auto) Baso # (Auto) Abs Immat Gran (auto) Absolute Neuts (auto) Absolute Nucleated RBC Nucleated RBC % (auto) Anion Gap Estim Creat Clear Calc Estimated GFR POC Glucose 262 H 184 H Random Glucose Estimat Average Glucose 260 Hemoglobin A1c % 10.7 Calcium 03/12/22 03/13/22 03/13/22 21:17 05:13 05:13 MCV 96.5 D MCH 29.1 MCHC 30.2 L RDW 12.8 Plt Count 152 L D MPV 12.3 Immature Gran % (Auto) 0.4 Neut % (Auto) 58.1 Lymph % (Auto) 31.2 [place] % (Auto) 7.4 Eos % (Auto) 2.5 Baso % (Auto) 0.4 Lymph # (Auto) 1.7 [place] # (Auto) 0.4 Eos # (Auto) 0.1 Baso # (Auto) 0.0 Abs Immat Gran (auto) 0.02 Absolute Neuts (auto) 3.2 Absolute Nucleated RBC 0.000 Nucleated RBC % (auto) 0.0 Anion Gap 13 Estim Creat Clear Calc 91.7 Estimated GFR > 60 POC Glucose 174 H Random Glucose 208 H Estimat Average Glucose Hemoglobin A1c % Calcium 9.4 03/13/22 07:19 MCV MCH MCHC RDW Plt Count MPV Immature Gran % (Auto) Neut % (Auto) Lymph % (Auto) [place] % (Auto) Eos % (Auto) Baso % (Auto) Lymph # (Auto) [place] # (Auto) Eos # (Auto) Baso # (Auto) Abs Immat Gran (auto) Absolute Neuts (auto) Absolute Nucleated RBC Nucleated RBC % (auto) Anion Gap Estim Creat Clear Calc Estimated GFR POC Glucose 204 H Random Glucose Estimat Average Glucose Hemoglobin A1c % Calcium Microbiology Microbiology Results: Microbiology 03/12/22 Unknown Urine Culture - Final Urine clean catch - Urine cavazos top Assessment and Plan (1) Ureterolithiasis: Status: Acute (2) Hydronephrosis: Status: Acute (3) Diabetes mellitus, new onset: Status: Acute (4) Renal colic: Status: Acute Plan 61-year-old female with a past medical history of hypertension, ? History of kidney stone,ex-smoker presented to the hospital today with a chief complaint of left flank pain.? Noted to have left UVJ kidney stone with hydronephrosis.? Left UVJ calculus/moderate left hydronephrosis: for uro intervention later today, NPO, hold Lovenox, flomax ?UTI:? Ceftriaxone.? Culture negative New onset diabetes:? sugar over 300, A1C 10, Fasting sugar 204, increase Lantus to 15, add metformin after uro procedure, nursing diabetic teaching History of hypertension:? Continue home metoprolol succinate.? Hold home olmesartan/ amlodipine / hydrochlorothiazide combination tablet for now. ? DVT prophylaxis:? Lovenox Code status:? Full code Need for inpatient : left UVJ stone with hydro that nees surgical intervention Quality Stroke Does the patient have a stroke diagnosis?: No VTE Prior VTE?: No VTE Risk Level:: Medical - moderate - high VTE Device Contraindication: Treatment Not Indicated VTE Drug Contraindication: N/A - Med Ordered
--- NOTE | 2022-03-13 09:38 | MHC.CM.PN ---
PATIENT LIVES WITH SPOUSE AND IS FULLY INDEPENDENT NO DME OR VNA SERVICES HCP IS SPOUSE AND A COPY IS REQUESTED PLAN IS FOR UROLOGICAL PROCEDURE AT APPROX 1700 TODAY DC HOME - SELF CARE WHEN STABLE COVID VACCINATED ( J&J PLUS BOOSTER)
[2022-03-13] MEDS: levoFLOXacin/D5W 500 MG/100 ML PIGGYBACK 100 MG IV (10:53)
[2022-03-13] MEDS: Acetaminophen 325 MG TABLET 650 MG PO (11:32)
[2022-03-13 11:42] LABS: Glucose, Whole Blood 140 mg/dL (60-115)
[2022-03-13 15:22] LABS: Glucose, Whole Blood 131 mg/dL (60-115)
--- NOTE | 2022-03-13 16:14 | HO.ANESPROP2 ---
HPI - Anesthesia Eval Consult details Narrative: 61 F for cysto special SVT on beta blockers , as per patient cardiac work-up was negative , HTN , former smoker, migranes, Obesity LUE pain and swelling , ruled out DVT . [facility] Active Problems Active Problems: All Active Problems (Updated 03/12/22 @ 05:14 by Lottie Mehta MD) Renal colic (Acute) Hydronephrosis (Acute) Ureterolithiasis (Acute) Diabetes mellitus, new onset (Acute) Bile salt-induced diarrhea (Acute) Left shoulder pain (Acute) Left elbow pain (Acute) Tubular adenoma of colon (Acute) SVT (supraventricular tachycardia) (Acute Unknown) Palpitations (Acute) Annual physical exam (Acute) Pain and swelling of left upper extremity (Acute) Obesity (BMI 30-39.9) (Acute) Vitamin D deficiency (Acute) COVID-19 (Acute) GERD (gastroesophageal reflux disease) (Acute) Migraine (Acute) Benign essential hypertension (Acute) Past Medical History Medical History Benign essential hypertension GERD (gastroesophageal reflux disease) Migraine Obesity (BMI 30-39.9) SVT (supraventricular tachycardia) (Unknown) Vitamin D deficiency Functional capacity: independent ambulation (Functional status greater than 4 mets ) Family History Family History Father Heart disease Hypertension Mother Heart disease Hypertension Diabetes mellitus Maternal Grandmother No problems noted. Maternal Grandfather No problems noted. Paternal Grandfather No problems noted. 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 Meds Allergies Allergy/AdvReac Type Severity Reaction Status Date / Time carbamazepine [From Tegretol] Allergy Intermediate RASH Verified 03/12/22 02:43 divalproex sodium Allergy Intermediate RASH Verified 03/12/22 02:43 [From Depakote] Iodinated Contrast Media Allergy Intermediate HIVES Verified 03/12/22 02:43 [IV Dye, Iodine Containing] IVP dye Allergy Unknown hives Uncoded 03/12/22 02:43 Active Medications: Current Medications Acetaminophen (Acetaminophen 325 Mg Tablet) 650 mg PO Q6H PRN PRN Reason: Pain, Mild (Pain Scale 1-3) Last Admin: 03/13/22 11:32 Dose: 650 mg Documented by: Dextrose (Dextrose 50 % 25 Gm/50 Ml Syringe) 25 gm IVPUSH Q15M PRN; Protocol PRN Reason: per Hypoglycemia Standing Ord. Enoxaparin Sodium (Enoxaparin Sodium 40 Mg/0.4 Ml Syringe) 40 mg SUBCUT Q24H [facility] Last Admin: 03/13/22 08:03 Dose: Not Given Documented by: Glucose (Glucose Gel 15 Gm Gel..Gram.) 15 gm PO Q15M PRN; Protocol PRN Reason: per Hypoglycemia Standing Ord. Hydromorphone HCl (Hydromorphone Hcl 1 Mg/Ml Syringe) 0.5 mg IVPUSH Q4H PRN; Protocol PRN Reason: Pain, Severe (Pain Scale 7-10) Ceftriaxone Sodium 1 gm/ (Sodium Chloride) 50 mls @ 100 mls/hr IV Q24H [facility] Last Infusion: 03/13/22 11:54 Dose: Infused Documented by: Insulin Glargine (Insulin Glargine,Hum.Rec.Anlog 100 Unit/Ml 10 Ml Vial) 15 unit SUBCUT BEDTIME [facility] Insulin Human Lispro (Insulin Lispro 100 Unit/Ml 3 Ml Vial) 0 unit SUBCUT QIDACHS [facility]; Protocol Last Admin: 03/13/22 15:19 Dose: Not Given Documented by: Melatonin (Melatonin 3 Mg Tablet) 6 mg PO BEDTIME PRN PRN Reason: Insomnia Metoprolol Succinate (Metoprolol Succinate Er 25 Mg Tab.Er.24h) 25 mg PO DAILY [facility]; Protocol Last Admin: 03/13/22 07:39 Dose: 25 mg Documented by: Senna (Sennosides 8.6 Mg Tablet) 17.2 mg PO BEDTIME PRN PRN Reason: Constipation Sodium Chloride (0.9 % Sodium Chloride Flush 3 Ml Syringe) 3 ml IVFLUSH QSHIFT JUS Last Admin: 03/13/22 16:07 Dose: Not Given Documented by: Home Medications Medication Instructions Recorded Confirmed Last Taken Type ergocalciferol (vitamin D2) 1,250 1,250 mcg PO MONROY@1000 03/12/22 03/12/22 Unknown History mcg (50,000 unit) capsule (Vitamin D2) Exam Exam Date and Time: March 13, 2022 1615 Height,Weight and Vital Signs: Height 5 ft 4 in Weight 94.801 kg Last Vital Signs Temp 97.6 F 03/13/22 15:58 Pulse 71 03/13/22 15:58 Resp 18 03/13/22 15:58 BP 165/85 H 03/13/22 15:58 Pulse Ox 97 03/13/22 15:58 Pertinent Lab Results Pertinent Lab Results: Laboratory Tests 03/12/22 03/12/22 03/12/22 03:11 03:16 03:16 WBC 6.3 RBC 4.05 L Hgb 11.9 L Hct 35.9 L MCV 88.6 MCH 29.4 MCHC 33.1 RDW 12.7 Plt Count 211 MPV 11.8 Immature Gran % (Auto) 0.3 Neut % (Auto) 60.0 Lymph % (Auto) 28.5 Jackson % (Auto) 8.1 Eos % (Auto) 2.8 Baso % (Auto) 0.3 Lymph # (Auto) 1.8 Jackson # (Auto) 0.5 Eos # (Auto) 0.2 Baso # (Auto) 0.0 Abs Immat Gran (auto) 0.02 Absolute Neuts (auto) 3.8 Absolute Nucleated RBC 0.000 Nucleated RBC % (auto) 0.0 Sodium 135 Potassium 4.7 D Chloride 103 Carbon Dioxide 21 L Anion Gap 16 BUN 15 Creatinine 1.03 Estim Creat Clear Calc 64.1 Estimated GFR 54 POC Glucose Random Glucose 462 H* Estimat Average Glucose Hemoglobin A1c % Calcium 9.8 Total Bilirubin 0.4 Direct Bilirubin < 0.2 AST 164 H ALT 167 H Alkaline Phosphatase 141 H D Total Protein 7.8 Albumin 3.9 Lipase 46 Urine Color YELLOW Urine Appearance CLEAR Urine pH 6.0 Ur Specific [place] 1.010 Urine Protein NEG Urine Glucose (UA) >=1000 H Urine Ketones NEG Urine Blood 1+ H Urine Nitrite NEG Ur Leukocyte Esterase NEG Urine RBC 10-14 H Urine WBC 5-9 H Ur Squamous Epith Cells 2+ Urine Bacteria 2+ Acetone, Qual Negative COVID-19 (REINALDO) COVID-19 [place]can 03/12/22 03/12/22 03/12/22 05:10 05:20 07:14 WBC RBC Hgb Hct MCV MCH MCHC RDW Plt Count MPV Immature Gran % (Auto) Neut % (Auto) Lymph % (Auto) Jackson % (Auto) Eos % (Auto) Baso % (Auto) Lymph # (Auto) Jackson # (Auto) Eos # (Auto) Baso # (Auto) Abs Immat Gran (auto) Absolute Neuts (auto) Absolute Nucleated RBC Nucleated RBC % (auto) Sodium Potassium Chloride Carbon Dioxide Anion Gap BUN Creatinine Estim Creat Clear Calc Estimated GFR POC Glucose 371 H* Random Glucose Estimat Average Glucose 260 Hemoglobin A1c % 10.7 Calcium Total Bilirubin Direct Bilirubin AST ALT Alkaline Phosphatase Total Protein Albumin Lipase Urine Color Urine Appearance Urine pH Ur Specific [place] Urine Protein Urine Glucose (UA) Urine Ketones Urine Blood Urine Nitrite Ur Leukocyte Esterase Urine RBC Urine WBC Ur Squamous Epith Cells Urine Bacteria Acetone, Qual COVID-19 (REINALDO) Negative COVID-[employer] See Note 03/12/22 03/12/22 03/12/22 07:17 13:20 17:28 WBC RBC Hgb Hct MCV MCH MCHC RDW Plt Count MPV Immature Gran % (Auto) Neut % (Auto) Lymph % (Auto) Jackson % (Auto) Eos % (Auto) Baso % (Auto) Lymph # (Auto) Jackson # (Auto) Eos # (Auto) Baso # (Auto) Abs Immat Gran (auto) Absolute Neuts (auto) Absolute Nucleated RBC Nucleated RBC % (auto) Sodium Potassium Chloride Carbon Dioxide Anion Gap BUN Creatinine Estim Creat Clear Calc Estimated GFR POC Glucose 306 H 262 H 184 H Random Glucose Estimat Average Glucose Hemoglobin A1c % Calcium Total Bilirubin Direct Bilirubin AST ALT Alkaline Phosphatase Total Protein Albumin Lipase Urine Color Urine Appearance Urine pH Ur Specific [place] Urine Protein Urine Glucose (UA) Urine Ketones Urine Blood Urine Nitrite Ur Leukocyte Esterase Urine RBC Urine WBC Ur Squamous Epith Cells Urine Bacteria Acetone, Qual COVID-19 (REINALDO) COVID-19 Wirescan 03/12/22 03/13/22 03/13/22 21:17 05:13 05:13 WBC 5.6 RBC 4.05 L Hgb 11.8 L Hct 39.1 MCV 96.5 D MCH 29.1 MCHC 30.2 L RDW 12.8 Plt Count 152 L D MPV 12.3 Immature Gran % (Auto) 0.4 Neut % (Auto) 58.1 Lymph % (Auto) 31.2 Jackson % (Auto) 7.4 Eos % (Auto) 2.5 Baso % (Auto) 0.4 Lymph # (Auto) 1.7 Jackson # (Auto) 0.4 Eos # (Auto) 0.1 Baso # (Auto) 0.0 Abs Immat Gran (auto) 0.02 Absolute Neuts (auto) 3.2 Absolute Nucleated RBC 0.000 Nucleated RBC % (auto) 0.0 Sodium 139 Potassium 4.0 Chloride 106 Carbon Dioxide 24 Anion Gap 13 BUN 14 Creatinine 0.72 Estim Creat Clear Calc 91.7 Estimated GFR > 60 POC Glucose 174 H Random Glucose 208 H Estimat Average Glucose Hemoglobin A1c % Calcium 9.4 Total Bilirubin Direct Bilirubin AST ALT Alkaline Phosphatase Total Protein Albumin Lipase Urine Color Urine Appearance Urine pH Ur Specific [place] Urine Protein Urine Glucose (UA) Urine Ketones Urine Blood Urine Nitrite Ur Leukocyte Esterase Urine RBC Urine WBC Ur Squamous Epith Cells Urine Bacteria Acetone, Qual COVID-19 (REINALDO) COVID-19 [employer]ence Com 03/13/22 03/13/22 03/13/22 07:19 11:36 15:14 WBC RBC Hgb Hct MCV MCH MCHC RDW Plt Count MPV Immature Gran % (Auto) Neut % (Auto) Lymph % (Auto) Jackson % (Auto) Eos % (Auto) Baso % (Auto) Lymph # (Auto) Jackson # (Auto) Eos # (Auto) Baso # (Auto) Abs Immat Gran (auto) Absolute Neuts (auto) Absolute Nucleated RBC Nucleated RBC % (auto) Sodium Potassium Chloride Carbon Dioxide Anion Gap BUN Creatinine Estim Creat Clear Calc Estimated GFR POC Glucose 204 H 140 H 131 H Random Glucose Estimat Average Glucose Hemoglobin A1c % Calcium Total Bilirubin Direct Bilirubin AST ALT Alkaline Phosphatase Total Protein Albumin Lipase Urine Color Urine Appearance Urine pH Ur Specific [place] Urine Protein Urine Glucose (UA) Urine Ketones Urine Blood Urine Nitrite Ur Leukocyte Esterase Urine RBC Urine WBC Ur Squamous Epith Cells Urine Bacteria Acetone, Qual COVID-19 (REINALDO) COVID-19 Clin Com Airway Mallampati Class: III TM Dist: >3cm Neck ROM: Full Denture: Upper and Lower Loose/Missing/Broken Teeth: Yes Heart: S1, S2 Lungs: b/l breath sounds Assessment and Plan Assessment Anesthesia Assessment: Anesthesia Plan Discussed and Chart Reviewed Final Anesthetic Review Family History of Problems with Anesthesia: No History of Problems with Anesthesia: No NPO: Yes ASA Class: III and Emergency Final Preanesthetic Review: No Changes in Pt Med Stat, Meds/Allgs Chart Reviewed, Consent Obtained/Reviewed and Anes Risks/Benef Reviewed Patient Risk: Intermediate Procedure Risk: Intermediate Anesthetic Plan Anesthetic Plan: GA Disposition: Inp. Admit - Standard Bed
--- NOTE | 2022-03-13 16:45 | MHC.SHP ---
Pre-Procedural Eval Section A Date of Service: 03/13/22 The patient is an INPATIENT: Yes The History & Physical has been completed within 30 days and I have reviewed it.: Yes Section B Chief Complaint: kidney stone Allergies: Allergies Allergy/AdvReac Type Severity Reaction Status Date / Time carbamazepine [From Tegretol] Allergy Intermediate RASH Verified 03/12/22 02:43 divalproex sodium Allergy Intermediate RASH Verified 03/12/22 02:43 [From Depakote] Iodinated Contrast Media Allergy Intermediate HIVES Verified 03/12/22 02:43 [IV Dye, Iodine Containing] IVP dye Allergy Unknown hives Uncoded 03/12/22 02:43 Plan Diagnosis/Plan: Unchanged (left ureteroscopy, laser, stent) I have reviewed the history and physical and performed a pertinent physical examination on my patient. No changes have occurred unless specified.
--- NOTE | 2022-03-13 17:23 | P.OP_ITS ---
Operative Note Operative Note Date of Service: 03/13/22 Narrative: PreOperative Diagnosis: Left distal ureteric stone Post Operative Diagnosis: Left distal ureteric stone Procedure: - cystoscopy, stone basketing from left ureteral orifice - left retrograde - left stent placement Surgeon: Dr Jono Loyola Anesthesia: General Indications for procedure: Present with pain left flank side Procedure: After informed consent was verified patient was brought to the operating placed in supine position. Anesthesia was administered per protocol. Patient was placed in modified dorsal lithotomy position and prepped and draped in a sterile fashion. Safety pause time-out and side of surgery confirmed. Antibiotics confirmed. A 22 Bangladeshi cystoscope was inserted per urethra. Bladder was normal in its entirety. Both ureteric orifices were in normal position. The left ureteric orifice had a stone that was . Using a stent grasper the stone was able to be grasped and removed from the ureter and is sent for analysis The left ureteric orifice was cannulated and a retrograde examination was performed. No filling defects was seen A Sensor guidewire was placed up to the level of the renal pelvis under fluoroscopy. A 6 Bangladeshi by 26 cm double-J stent was placed into the renal pelvis and bladder under a combination of fluoroscopy and direct visualization. The bladder was emptied. The patient tolerated the procedure well and was extubated in the operating room, and transferred in stable condition to the recovery area. Pathology: Stone Drains: 6 Bangladeshi by 26 cm double-J stent
[2022-03-13] MEDS: Phenazopyridine HCL 100 MG TABLET PO (18:29)
[2022-03-13 19:35] LABS: Glucose, Whole Blood 275 mg/dL (60-115)
[2022-03-13] MEDS: HYDROmorphone HCl 1 MG/ML SYRINGE 0.5 MG IVPUSH (20:38)
[2022-03-13] MEDS: Insulin Glargine,Hum.rec.anlog 100 UNIT/ML 10 ML VIAL 15 UNIT SUBCUT (20:40)
[2022-03-14 01:00] VITALS: BP 135/66; PULSE 70; RESP 20; TEMP 36.6; O2SAT 97
[2022-03-14 02:00] VITALS: BP 142/68; PULSE 76; RESP 20; TEMP 36.9; O2SAT 96
[2022-03-14] MEDS: Acetaminophen 325 MG TABLET 650 MG PO (02:11)
[2022-03-14 04:00] VITALS: BP 125/63; PULSE 65; RESP 18; TEMP 36.3; O2SAT 97
[2022-03-14 06:00] VITALS: BP 131/65; PULSE 66; RESP 18; TEMP 36.6; O2SAT 97
--- NOTE | 2022-03-14 06:52 | HO.POSTANES ---
Post Anesthesia Evaluation Post Anesthesia Evaluation Vital Signs: Vital Signs Temp Pulse Resp BP Pulse Ox 03/14/22 06:00 97.8 F 66 18 131/65 97 03/14/22 04:00 97.3 F 65 18 125/63 97 03/14/22 02:00 98.4 F 76 20 142/68 H 96 03/14/22 01:00 97.8 F 70 20 135/66 97 03/13/22 23:52 97.1 F 67 18 112/58 L 97 03/13/22 22:00 98.0 F 64 20 134/74 96 03/13/22 21:00 97.8 F 66 19 146/70 H 96 Anesthesia: General Mental Status: Awake Pain Control: Satisfactory Nausea/Vomiting: None Hydration: Adequate Anesthesia-Related Issues: No Anes. Related Issues
[2022-03-14 07:26] VITALS: BP 130/60; PULSE 63; RESP 18; TEMP 36.7; O2SAT 94
[2022-03-14 07:35] LABS: Glucose, Whole Blood 276 mg/dL (60-115)
[2022-03-14] MEDS: Metoprolol Succinate ER 25 MG TAB.ER.24H PO (08:33)
[2022-03-14] MEDS: Enoxaparin Sodium 40 MG/0.4 ML SYRINGE SUBCUT (08:33)
[2022-03-14] MEDS: Insulin Lispro 100 UNIT/ML 3 ML VIAL SUBCUT (08:34)
[2022-03-14] MEDS: cefTRIAXone sodium 1 GM in 0.9 % Sodium Chloride 50 ML IV (08:34)
[2022-03-14] MEDS: 0.9 % Sodium Chloride Flush 3 ML SYRINGE IVFLUSH (08:34)
--- NOTE | 2022-03-14 09:56 | P.DS_ITS ---
DS: Providers Provider Date of Service: 03/14/22 Date of admission: 03/12/22 06:20 Primary care physician: Portillo Guy MD Consults: 03/12/22 06:20 Consult to Urology Routine Consulting Provider: Jono Loyola Reason for consultation: kidney stone, hydronephrosis DS: Diagnosis Discharge Diagnosis (1) Ureterolithiasis: Status: Acute (2) Hydronephrosis: Status: Acute (3) Diabetes mellitus, new onset: Status: Acute (4) Renal colic: Status: Acute DS: Summary Hospital Course Hospital Course: Chief Complaint:? left flank pain ?61-year-old female with a past medical history of hypertension, ? History of kidney stone,ex-smoker presented to the hospital today with a chief complaint of left flank pain. Patient reports that last night she woke up with left flank pain, 8 of 10 in in density, no associated nausea vomiting; reports the pain is radiating from the groin; denies any blood in the urine.? Reports for the past few days she has been having urinary frequency. Denies any fevers and chills.? Denies any chest pain or palpitations.? Patient also reports he has been having? polyuria and polydipsia. Review of all other systems is negative except mentioned above ER course: Per ER team patient's CT scan showed 7 mm calculus at the left UVJ with mod erate? hydronephrosis; given pain medications; also noted to have elevated blood sugar levels of to 400; concern for new onset diabetes.? Given IV fluids.? Admitted for further management. Hosptial course: 61 year female with HTN, overweigh, history of kidney stone, and previously high fasting blood sugar (per her report) but no formal diagnosis of diabetes, was due to see PCP 03/14. She presented to ED with left flank pain and noted to have a left sided 7 mm stone at UVJ with moderate hydronephrosis, also found to have glucose over 400 consistent with diabetes. Kidney stone was managed with IVF, IV pain med and ultimately underwent ? cystoscopy, stone basketing from left ureteral orifice-? left retrograde - left stent placement by Dr. Loyola on 03/13 with good relief. To follow up with Dr. Loyola. For new onset diabetes started on Insulin Lantus and titrated up to 15 units at bedtime, in addition to Sliding scale insulin and adding metformin 500 bid. Hgb A1C is 10.7 as of 03/11..Will be prescribed Solostar pen and Kwick pen for sliding scale, glucometer and other accessory prescribed as well. To follow up as scheduled with PCP today,. Time Spent with Patient Time attestation: Total time spent providing and/or coordinating discharge services: Discharge coordination time: Greater than 30 minutes Quality: Safe Use of Opioids Does Pt have an Active Cancer Diagnosis on the Problem List?: No Quality: Stroke Does the patient have a stroke diagnosis?: No Physical Exam Vital Signs: Vital Signs: Last Vital Signs Temp 98.0 F 03/14/22 07:26 Pulse 63 03/14/22 07:26 Resp 18 03/14/22 07:26 BP 130/60 03/14/22 07:26 Pulse Ox 94 03/14/22 07:26 BMI result Body Mass Index 35.9 DS: Data Data Completed and Pending Pending studies at discharge: Pending at discharge 03/13/22 17:04 Surgical [PTH] Routine Labs on day of discharge: Laboratory Results - last 24 hr 03/13/22 03/13/22 03/13/22 11:36 15:14 19:18 POC Glucose 140 H 131 H 275 H 03/14/22 07:25 POC Glucose 276 H Discharge Plan Discharge Anticipated Discharge Date/Time: 03/14/22 09:34 Patient Disposition: Home, Self-Care Discharge Diagnosis: Kidney stone, new onset diabetes Referrals: Portillo Guy MD [Primary Care Provider] - 1 Week Discharge Medications: New phenazopyridine [Pyridium] 100 mg tablet 100 mg PO TID PRN (Reason: spasm) 4 Days Qty: 12 0RF tamsulosin 0.4 mg capsule 0.4 mg PO BEDTIME 14 Days Qty: 14 0RF (DME) FreeStyle Lite Strips Strip Qty: 100 0RF Rx Instructions: Test four times a day or as directed. (DME) blood-glucose meter [FreeStyle Lite Meter] Kit Qty: 1 0RF Rx Instructions: As Directed 4 times a day alcohol swabs Pads, Medicated 1 pad TOPICAL QIDACHS Qty: 100 0RF Rx Instructions: Use four times a day or as directed. insulin lispro [Humalog KwikPen Insulin] 100 unit/mL Insulin Pen 1 sliding scale dose SUBCUT QIDACHS MDD 30 units Qty: 15 0RF Rx Instructions: Blood Sugar: <150 - 0 units 151-200 - 2 units 201-250 - 4 units 251-300 - 6 units 301-350 - 8 units >350 - 10 units Lantus Solostar U-100 Insulin 100 unit/mL (3 mL) Insulin Pen 15 unit SUBCUT BEDTIME Qty: 15 0RF (DME) pen needle, diabetic 32 gauge x 1/4 Needle Qty: 100 0RF Rx Instructions: Use four times a day or as directed. (DME) lancets [FreeStyle Lancets] 28 gauge Misc Qty: 100 0RF Rx Instructions: Test four times a day or as directed. metformin 500 mg tablet 500 mg PO BID Qty: 60 0RF Continued [id number] 40-5-25 mg tablet 1 tab PO DAILY Qty: 90 3RF ergocalciferol (vitamin D2) [Vitamin D2] 1,250 mcg (50,000 unit) capsule 1,250 mcg PO MONROY@1000 0RF ibuprofen 800 mg tablet 800 mg PO TID PRN (Reason: pain or headaches) 90 Days Qty: 270 1RF Rx Instructions: Take WITH FOOD metoprolol succinate 25 mg tablet extended release 24 hr 25 mg PO DAILY Qty: 90 3RF Discharge Orders: Discharge Order (Routine); Ordered 03/14/22 Ordered By: Logan Foote Diet: advance to usual diet and diabetic diet Activity on Discharge: As tolerated Stand Alone Forms: Patient Portal Discharge page Care Plan Goals: resolution of kidney stone, and management of new diabetes Health Concerns: new onset diabetes, kidney stone Plan of Treatment: Use insulin and Metformin as directed for diabetes Check sugars before meals follow up with Dr. Loyola in 7 to 10 days Follow up with your PCP as arranged Assessment: as above
--- NOTE | 2022-03-14 09:57 | MHC.CLN ---
NUTRITION DIET CHANGED TO DIABETIC 1800 KCAL. A1c GREATER THAN 10 SHOWING POOR BLOOD GLUCOSE CONTROL.
--- NOTE | 2022-03-14 10:18 | MHC.CM.PN ---
PT MEDICALLY CLEARED FOR D/C HOME SELF-CARE, PT TO ARRANGE TRANSPORT
[2022-03-18 16:31] LABS: Stone Source KIDNEY STONE
== END 2022-03-14 10:49 | disposition home or self-care (01) | DRG 446 ==
LOC: HO.ED 05:14 → HO.EDOVER 06:39 → HO.S3 19:37
PROVIDERS: Urology; Admitting Provider Hospitalist; Emergency Provider Student in an Organized Health Care Education/Training Program; PCP Internal Medicine; Visit Provider Internal Medicine
PROC: 0TC78ZZ Extirpation of Matter from Left Ureter, Via Natural or Artificial Opening Endoscopic (ICD-10-PCS; principal; 2022-03-13 16:30)
DX: N13.6 Pyonephrosis (principal); I47.1 Supraventricular tachycardia; I10 Essential (primary) hypertension; D75.82 Heparin induced thrombocytopenia (HIT); E11.9 Type 2 diabetes mellitus without complications; K21.9 Gastro-esophageal reflux disease without esophagitis; Z20.822 Contact with and (suspected) exposure to COVID-19; Z87.442 Personal history of urinary calculi; Z87.891 Personal history of nicotine dependence; Z91.041 Radiographic dye allergy status; Z88.8 Allergy status to other drugs, medicaments and biological substances; Z79.899 Other long term (current) drug therapy
CPT/HCPCS: 36415; 74176; 80048; 80076; 81001; 82009; 82365; 82947; 83036; 83690; 85025; 87086; 87635; 88300; 96361; 96374; 96375; 99285; C1758; C1769; C2617; J0696; J1100; J1170; J1650; J1885; J1956; J2250; J2405; J3010; Q9967

== ENCOUNTER → 2022-03-21 13:42 | Outpatient (BNVA) | payer BC, SELFPAY | PROVIDERS: PCP Internal Medicine; Visit Provider Urology | DX: N20.1 Calculus of ureter (principal) | CPT/HCPCS: 52310 ==

== ENCOUNTER 2022-05-07 09:47 | Outpatient (REF) | payer BC, SELFPAY ==
--- NOTE | ~2022-05-07 | US_ITS ---
EXAMINATION: US RETROPERITONEAL LIMITED (RENAL ONLY) CLINICAL INFORMATION: Calculus of kidney. COMPARISON: CT abdomen and pelvis without contrast 03/12/2022. TECHNIQUE: Real-time imaging of the kidneys. FINDINGS: RIGHT KIDNEY: 11.7 x 4.4 x 6.0 cm (SAG x AP x TRV). The kidney is normal in size, contour, and echogenicity. Renal cortical thickness is normal. No focal parenchymal lesions or hydronephrosis. There is a nonobstructing 4 mm calculus upper pole with twinkling artifact on color Doppler. LEFT KIDNEY: 12.3 x 5.6 x 5.3 cm (SAG x AP x TRV). The kidney is normal in size, contour, and echogenicity. Renal cortical thickness is normal. No calculi or focal parenchymal lesions. No hydronephrosis. US/US renal BI IMPRESSION: Right: -Nonobstructing calculus upper pole 4 mm. -No hydronephrosis or caliectasis. Left: -No hydronephrosis or caliectasis. -No visible calculi..
== END 2022-05-07 09:48 | disposition home or self-care (01) ==
LOC: HO.HMGCX 09:47
PROVIDERS: Visit Provider Urology
DX: N20.0 Calculus of kidney (principal)
CPT/HCPCS: 76775

== ENCOUNTER 2022-05-08 08:15 | Outpatient (REF) | payer BC, SELFPAY ==
--- NOTE | ~2022-05-08 | MM_ITS ---
EXAMINATION: MM SCREENING DIGITAL BREAST TOMOSYNTHESIS, BILATERAL CLINICAL INFORMATION: Screening. Asymptomatic. The lifetime risk of breast cancer based on the Tyrer-Cuzick Model is 6.0%. COMPARISON: Mammography: May 02, 2021 and studies dating back to March 30, 2009 TECHNIQUE: Digital breast tomosynthesis is performed in both the craniocaudal and mediolateral oblique views along with computer-aided detection (CAD). Synthesized 2D images are generated from the tomosynthesis. FINDINGS: The breasts are extremely dense, which lowers the sensitivity of mammography (ACR BI-RADS breast composition Category d). There are no new significant masses, abnormal calcifications, or other abnormalities. There is a stable region of distortion seen about the deep medial aspect of the left breast. MM/MM tomosynthesis screening BI IMPRESSION: There are no significant changes from prior study. ASSESSMENT: BI-RADS 2: Benign RECOMMENDATION: Routine annual mammography screening. This patient's information was entered into a reminder system with a target due date for their next mammogram.
== END 2022-05-08 08:16 | disposition home or self-care (01) ==
LOC: HO.MAMMO 08:15
PROVIDERS: Visit Provider Internal Medicine
DX: Z12.31 Encounter for screening mammogram for malignant neoplasm of breast (principal)
CPT/HCPCS: 77063; 77067

== ENCOUNTER 2022-07-11 07:03 | Outpatient (REF) | payer BC, SELFPAY ==
[2022-07-11 11:19] LABS: Appearance Urine Cloudy; Color Urine Yellow; Glucose Urine UA Negative (Negative); Leukocyte Esterase Urine Small (1+) (Negative); Nitrite Urine Negative (Negative); UMIC TRIGGER UACC YES; Urine Blood Negative (Negative); Urine Ketones Negative (Negative); Urine Protein Negative (Neg-Trace)
[2022-07-11 11:25] LABS: MANUAL DIFF FLAG NO
[2022-07-11 11:26] LABS: Bacteria Urine 2+ (None Seen); Hyaline Casts Urine 0-2 /LPF (0-2); RBC Urine 0-2 /HPF (0-2); Squamous Epithelial Cell Urine >20 /HPF (0-2); UACC Culture Trigger YES
[2022-07-11 11:30] LABS: Basophils Percent Auto 0.4 % (0-2); Eosinophils Absolute Auto 0.2 X10*3/uL (0.0-0.4); Eosinophils Percent Auto 2.9 % (0-4); Hematocrit 37.2 % (37.0-47.0); Hemoglobin 12.3 g/dl (12.0-16.0); Imm Gran Abs Auto 0.02 X10*3/uL (0.00-0.03); Imm Gran Pct Auto 0.3 % (0.0-0.4); Lymphocytes Absolute Auto 2.7 X10*3/uL (1.2-4.9); Lymphocytes Percent Auto 36.1 % (20-40); Mean Corpuscular HGB Conc 33.1 g/dl (31.0-35.0); Mean Corpuscular Hemoglobin 29.5 pg (27.0-33.0); Mean Corpuscular Volume 89.2 fL (80.0-98.0); Mean Platelet Volume 11.6 fL (9.4-12.3); Monocytes Absolute Auto 0.5 X10*3/uL (0.1-1.2); Monocytes Percent Auto 6.9 % (2-11); Neutrophils Percent Auto 53.4 % (45-73); Platelet Count 260 X10*3/uL (160-400); Red Blood Count 4.17 X10*6/uL (4.20-5.50); Red Cell Distribution Width 12.8 % (11.0-16.0); White Blood Count 7.5 X10*3/uL (4.8-10.8)
[2022-07-11 11:43] LABS: Estimated Average Glucose 120 mg/dL; Hemoglobin A1C 129.6532 umol/L; Hemoglobin A1c % 5.8 %
[2022-07-11 11:52] LABS: Alanine Aminotransferase 70 U/L (0-31); Albumin Level 4.4 g/dL (3.5-5.0); Alkaline Phosphatase 93 U/L (39-117); Anion Gap 16 (12-20); Aspartate Amino Transferase 55 U/L (5-31); Bilirubin Total 0.3 mg/dL (0.0-1.0); Blood Urea Nitrogen 14 mg/dL (9-16); Calcium 9.6 mg/dL (8.4-10.2); Carbon Dioxide 24 mmol/L (22-29); Chloride 105 mmol/L (96-108); Cholesterol 152 mg/dL; Estimated Glomerular Filt Rate > 60; Glucose Fasting 113 mg/dL (60-99); HDL Cholesterol 47 mg/dL; LDL Cholesterol Calculated 86 mg/dl; Potassium 3.7 mmol/L (3.3-5.1); Sodium 141 mmol/L (135-145); Total Protein 7.5 g/dL (6.5-8.0); Triglycerides 96 mg/dL
[2022-07-11 12:01] LABS: Creatinine Urine 150.57 mg/dL; Microalbum/Creatinine Ratio Ur 32.5 ug/mg cr
[2022-07-11 12:15] LABS: TSH reflex Free T4 1.16 uIU/mL (0.32-4.0); Vitamin D 25-OH Total 43.7 ng/mL (>30)
== END 2022-07-11 07:04 | disposition home or self-care (01) ==
LOC: HO.HMGCLDS 07:03
PROVIDERS: PCP Internal Medicine; Visit Provider Internal Medicine
DX: I10 Essential (primary) hypertension (principal); E11.9 Type 2 diabetes mellitus without complications; E78.00 Pure hypercholesterolemia, unspecified; E55.9 Vitamin D deficiency, unspecified
CPT/HCPCS: 36415; 80053; 80061; 81001; 82043; 82306; 83036; 84443; 85025; 87086

== ENCOUNTER 2022-11-08 08:04 | Outpatient (REF) | payer BC, SELFPAY ==
--- NOTE | ~2022-11-08 | US_ITS ---
EXAMINATION: US RETROPERITONEAL LIMITED (RENAL ONLY) CLINICAL INFORMATION: Calculus of kidney. COMPARISON: Ultrasound retroperitoneal limited (renal only) 05/07/2022. CT abdomen and pelvis without contrast 03/12/2022. TECHNIQUE: Real-time imaging of the kidneys. FINDINGS: RIGHT KIDNEY: 11.1 x 5.0 x 6.3 cm (SAG x AP x TRV). The kidney is normal in size, contour, and echogenicity. Renal cortical thickness is normal. No calculi or focal parenchymal lesions. There is mild fullness of the right kidney pelvis. No hydroureteronephrosis suspected. LEFT KIDNEY: 11.9 x 5.2 x 5.5 cm (SAG x AP x TRV). The kidney is normal in size, contour, and echogenicity. Renal cortical thickness is normal. No calculi or focal parenchymal lesions. No hydronephrosis. US/US renal BI IMPRESSION: 1. Mild fullness of right kidney pelvis. No echogenic stones seen. 2. The left kidney is unremarkable.
[2022-11-08 11:29] LABS: MANUAL DIFF FLAG NO
[2022-11-08 11:35] LABS: Appearance Urine Clear; Color Urine Yellow; Glucose Urine UA >=1000 mg/dL (Negative); Leukocyte Esterase Urine Negative (Negative); Nitrite Urine Negative (Negative); PH 5.5 (5.0-9.0); Specific Gravity - Urine >= 1.030 (1.005-1.025); UMIC TRIGGER UACC YES; Urine Blood Negative (Negative); Urine Ketones Negative (Negative); Urine Protein 30 (1+) mg/dL (Neg-Trace)
[2022-11-08 11:39] LABS: Bacteria Urine 1+ (None Seen); Hyaline Casts Urine 0-2 /LPF (0-2); RBC Urine 0-2 /HPF (0-2); UACC Culture Trigger YES
[2022-11-08 11:46] LABS: Basophils Percent Auto 0.4 % (0-2); Eosinophils Absolute Auto 0.2 X10*3/uL (0.0-0.4); Eosinophils Percent Auto 2.4 % (0-4); Hematocrit 39.8 % (37.0-47.0); Hemoglobin 12.9 g/dl (12.0-16.0); Imm Gran Abs Auto 0.01 X10*3/uL (0.00-0.03); Imm Gran Pct Auto 0.1 % (0.0-0.4); Lymphocytes Absolute Auto 1.9 X10*3/uL (1.2-4.9); Lymphocytes Percent Auto 28.7 % (20-40); Mean Corpuscular HGB Conc 32.4 g/dl (31.0-35.0); Mean Corpuscular Hemoglobin 28.8 pg (27.0-33.0); Mean Corpuscular Volume 88.8 fL (80.0-98.0); Mean Platelet Volume 11.4 fL (9.4-12.3); Monocytes Absolute Auto 0.5 X10*3/uL (0.1-1.2); Monocytes Percent Auto 6.6 % (2-11); Neutrophils Absolute Auto 4.2 x10*3/uL (2.0-8.3); Neutrophils Percent Auto 61.8 % (45-73); Platelet Count 262 X10*3/uL (160-400); Red Blood Count 4.48 X10*6/uL (4.20-5.50); White Blood Count 6.8 X10*3/uL (4.8-10.8)
[2022-11-08 12:00] LABS: Estimated Average Glucose 114 mg/dL; Hemoglobin A1c % 5.6 %
[2022-11-08 12:17] LABS: Alanine Aminotransferase 30 U/L (0-31); Albumin Level 4.3 g/dL (3.5-5.0); Alkaline Phosphatase 82 U/L (39-117); Anion Gap 12 (12-20); Aspartate Amino Transferase 24 U/L (5-31); Bilirubin Total 0.4 mg/dL (0.0-1.0); Blood Urea Nitrogen 13 mg/dL (9-16); Calcium 9.5 mg/dL (8.4-10.2); Carbon Dioxide 28 mmol/L (22-29); Chloride 107 mmol/L (96-108); Cholesterol 158 mg/dL; Estimated Glomerular Filt Rate > 60; Glucose Fasting 108 mg/dL (60-99); HDL Cholesterol 53 mg/dL; LDL Cholesterol Calculated 93 mg/dl; Potassium 4.1 mmol/L (3.3-5.1); Sodium 143 mmol/L (135-145); Total Protein 7.4 g/dL (6.5-8.0); Triglycerides 62 mg/dL; Vitamin D 25-OH Total 42.3 ng/mL (>30)
[2022-11-08 12:38] LABS: Creatinine Urine 186.06 mg/dL; Microalbum/Creatinine Ratio Ur 59.6 ug/mg cr
== END 2022-11-08 08:05 | disposition home or self-care (01) ==
LOC: HO.HMGCX 08:04
PROVIDERS: Absent Provider Internal Medicine; PCP Internal Medicine; Visit Provider Urology
DX: E11.9 Type 2 diabetes mellitus without complications (principal); E55.9 Vitamin D deficiency, unspecified; I10 Essential (primary) hypertension; E78.00 Pure hypercholesterolemia, unspecified; N20.0 Calculus of kidney; R30.0 Dysuria
CPT/HCPCS: 36415; 76775; 80053; 80061; 81001; 82043; 82306; 83036; 84443; 85025; 87086; 87147

== ENCOUNTER → 2022-11-23 08:46 | Outpatient (BNVA) | payer BC, SELFPAY | PROVIDERS: PCP Internal Medicine; Visit Provider Urology | DX: Z13.89 Encounter for screening for other disorder (principal) ==

== ENCOUNTER 2022-11-29 09:04 | Outpatient (REF) | payer BC, SELFPAY ==
--- NOTE | ~2022-11-29 | MM_ITS ---
EXAMINATION: BONE DENSITOMETRY CLINICAL INDICATION: Asymptomatic menopausal state. COMPARISON: Previous BD dated 02/04/2018 and baseline BD dated 01/16/2007. TECHNIQUE: Using a [employer] DXA System (software version: 13.1) manufactured by [employer], dual-energy x-ray absorptiometry was performed of the lumbar spine and left hip. The images are of good technical quality. Summary results are attached. FINDINGS: AP SPINE L1-L4: Current: BMD 1.213 g/cm2, Z-score 0.9, T-score 0.3, normal, 4.7% decrease from previous, 6.5% decrease from baseline (<5% change is not significant). Prior: BMD 1.273 g/cm2. Baseline: BMD 1.297 g/cm2. LEFT FEMUR, NECK: Current: BMD 0.847 g/cm2, Z-score -0.5, T-score -1.4, osteopenia. Prior: BMD 0.900 g/cm2. Baseline: BMD 0.862 g/cm2. LEFT FEMUR, TOTAL: Current: BMD 0.915 g/cm2, Z-score -0.2, T-score -0.7, normal, 3.4% increase from previous, 3.7% increase from baseline (<5% change is not significant). Prior: BMD 0.885 g/cm2. Baseline: BMD 0.882 g/cm2. IDENTIFIED RISK FACTORS: Menopause. HISTORY OF FRACTURE: Elbow. Other (ankle/leg). MEDICATIONS: Vitamin D. MM/XR DEXA axial skeleton IMPRESSION: 1. DIAGNOSIS: Osteopenia based on the lowest T-score value of -1.4 in the femoral neck applying World Health Organization criteria. 2. 10-YEAR FRACTURE RISK PREDICTION, FRAX: Major osteoporotic fracture (clinical spine, forearm, hip or shoulder) 13.1%. Hip fracture 1.1%. 3. Treatment Recommendations: NOF guidelines recommend consideration for treatment in postmenopausal women and men age 50 and older presenting with the following: -A hip or vertebral (clinical or morphometric) fracture. -T-score less than or equal to -2.5 at the femoral neck or spine after appropriate evaluation to exclude secondary causes. -Low bone mass at the hip or spine and a 10-year fracture probability by FRAX of greater than or equal to 3% for hip fracture or greater than or equal to 20% for major osteoporotic fracture based on the [place] adapted WHO algorithm. 4. Other Recommendations: All treatment decisions require clinical judgment and consideration of individual patient factors, including patient preferences, comorbidities, previous drug use, risk factors not captured in the FRAX model (e.g. frailty, falls, vitamin D deficiency, increased bone turnover, interval significant decline in bone density) and possible under or overestimation of fracture risk by FRAX. Additional medical evaluation for secondary cause of low bone mineral density may be appropriate. FUTURE SCAN RECOMMENDATION: People with diagnosed cases of osteoporosis or at high risk for fracture should have regular bone mineral density tests. For patients eligible for Medicare, routine testing is allowed once every 2 years. The testing frequency can be increased to one year for patients who have rapidly progressing disease, those who are receiving or discontinuing medical therapy to restore bone mass, or have additional risk factors.
== END 2022-11-29 09:05 | disposition home or self-care (01) ==
LOC: HO.MAMMO 09:04
PROVIDERS: PCP Internal Medicine; Visit Provider Internal Medicine
DX: Z13.820 Encounter for screening for osteoporosis (principal); Z78.0 Asymptomatic menopausal state
CPT/HCPCS: 77080

== ENCOUNTER 2022-12-18 08:57 | Day surgery (SDC) | payer BC, SELFPAY ==
[2022-12-13 14:41] VITALS: BMI 32.5
--- NOTE | 2022-12-17 13:43 | P.CONAN_ITS ---
Documented by User: Judy Singh NP 12/17/22 13:44 HPI - Anesthesia Eval Consult details Narrative: 62yo F for Colonoscopy PMFSH Active Problems Active Problems: All Active Problems (Updated 12/13/22 @ 14:26 by Layne Brewster RN) COVID-19 (Acute) Pain and swelling of left upper extremity (Acute) Annual physical exam (Acute) Palpitations (Acute) Tubular adenoma of colon (Acute) Left elbow pain (Acute) Left shoulder pain (Acute) Bile salt-induced diarrhea (Acute) Hydronephrosis (Acute) Nephrolithiasis (Acute) Cervical cancer screening (Acute) Menopause present (Acute) Menopausal state (Acute) Diabetes mellitus (Acute) Diabetes mellitus, new onset (Acute) Obesity (BMI 30-39.9) (Acute) Vitamin D deficiency (Acute) GERD (gastroesophageal reflux disease) (Acute) Migraine (Acute) Benign essential hypertension (Acute) Past Medical History Medical History Benign essential hypertension Diabetes mellitus GERD (gastroesophageal reflux disease) Migraine Obesity (BMI 30-39.9) SVT (supraventricular tachycardia) (Unknown) Vitamin D deficiency Family History Family History Father Heart disease Hypertension Mother Heart disease Hypertension Diabetes mellitus Maternal Grandmother No problems noted. Maternal Grandfather No problems noted. Paternal Grandfather No problems noted. Sister Ovarian cancer Family history of problems with anesthesia: No Surgical History Surgical History History of ankle surgery History of colonoscopy (~05/28/19) S/P appendectomy S/P breast biopsy S/P cholecystectomy History of Problems with Anesthesia: No Social History Social History Household Members: Unknown / Unable to assess Housing: House Do you presently have visiting nurse or other home services: No Alcohol intake: former Patient Tobacco Use Status: Former Tobacco user Quit Date: 30 yrs ago Second Hand Smoke Exposure: No Use of substances other than those prescribed or required for medical reasons: No Are you DNR?: No Advance Directives: No Advance Directives Information Provided: Yes service: No Current occupational status: employed 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 Cognitive needs: No Hearing needs: No Vision needs: No Meds Allergies Allergy/AdvReac Type Severity Reaction Status Date / Time carbamazepine [From Tegretol] Allergy Intermediate RASH Verified 12/18/22 09:16 divalproex sodium Allergy Intermediate RASH Verified 12/18/22 09:16 [From Depakote] Iodinated Contrast Media Allergy Intermediate HIVES Verified 12/18/22 09:16 [IV Dye, Iodine Containing] Home Medications Medication Instructions Recorded Confirmed Last Taken Type pantoprazole 40 mg tablet,delayed 40 mg PO DAILY 05/23/22 12/13/22 12/18/22 07:00 History release ergocalciferol (vitamin D2) 1,250 cap PO 12/18/22 12/18/22 Unknown History mcg (50,000 unit) capsule (Vitamin D2) sucralfate 1 gram tablet 1 tab PO DAILY 12/18/22 12/18/22 Unknown History Exam Exam Date and Time: December 17, 2022 1343 Height,Weight and Vital Signs: Height 5 ft 4 in Weight 86.183 kg Pertinent Lab Results Pertinent Lab Results: Laboratory Tests 11/08/22 11/08/22 08:15 08:15 WBC 6.8 Hgb 12.9 Hct 39.8 Plt Count 262 Sodium 143 Potassium 4.1 Chloride 107 Carbon Dioxide 28 BUN 13 Creatinine 0.82 Narrative Narrative: ECHO 2021 Conclusions: - The left ventricular systolic function is normal.? The ? calculated ejection fraction is 72% by biplane method. ? - No obvious valvular pathology seen on this study.? Assessment and Plan Assessment Anesthesia Assessment: Chart Reviewed Final Anesthetic Review Family History of Problems with Anesthesia: No History of Problems with Anesthesia: No Documented by User: Lottie Henderson MD 12/18/22 09:47 [facility] Past Medical History Medical History Benign essential hypertension Diabetes mellitus GERD (gastroesophageal reflux disease) Migraine Obesity (BMI 30-39.9) SVT (supraventricular tachycardia) (Unknown) Vitamin D deficiency Family History Family History Father Heart disease Hypertension Mother Heart disease Hypertension Diabetes mellitus Maternal Grandmother No problems noted. Maternal Grandfather No problems noted. Paternal Grandfather No problems noted. Sister Ovarian cancer Surgical History Surgical History History of ankle surgery History of colonoscopy (~05/28/19) S/P appendectomy S/P breast biopsy S/P cholecystectomy Social History Social History Household Members: Unknown / Unable to assess Housing: House Do you presently have visiting nurse or other home services: No Alcohol intake: former Patient Tobacco Use Status: Former Tobacco user Quit Date: 30 yrs ago Second Hand Smoke Exposure: No Use of substances other than those prescribed or required for medical reasons: No Are you DNR?: No Advance Directives: No Advance Directives Information Provided: Yes service: No Current occupational status: employed 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 Cognitive needs: No Hearing needs: No Vision needs: No Meds Allergies Allergy/AdvReac Type Severity Reaction Status Date / Time carbamazepine [From Tegretol] Allergy Intermediate RASH Verified 12/18/22 09:16 divalproex sodium Allergy Intermediate RASH Verified 12/18/22 09:16 [From Depakote] Iodinated Contrast Media Allergy Intermediate HIVES Verified 12/18/22 09:16 [IV Dye, Iodine Containing] Home Medications Medication Instructions Recorded Confirmed Last Taken Type pantoprazole 40 mg tablet,delayed 40 mg PO DAILY 05/23/22 12/13/22 12/18/22 07:00 History release ergocalciferol (vitamin D2) 1,250 cap PO 12/18/22 12/18/22 Unknown History mcg (50,000 unit) capsule (Vitamin D2) sucralfate 1 gram tablet 1 tab PO DAILY 12/18/22 12/18/22 Unknown History Exam Airway Mallampati Class: II TM Dist: >3cm Neck ROM: Full Denture: Upper Partial: Lower Loose/Missing/Broken Teeth: Yes, Upper and Lower Heart: RRR Lungs: CTA Assessment and Plan Assessment Anesthesia Assessment: Anesthesia Plan Discussed Final Anesthetic Review NPO: Yes ASA Class: II Final Preanesthetic Review: Meds/Allgs Chart Reviewed, Consent Obtained/Reviewed and Anes Risks/Benef Reviewed Patient Risk: Low Procedure Risk: Low Anesthetic Plan Anesthetic Plan: MAC: Disposition: Standard PACU
--- NOTE | 2022-12-18 09:08 | MHC.SHP ---
Pre-Procedural Eval Section A Date of Service: 12/18/22 Section B Chief Complaint: Personal hx of polyps, diarrhea Details of Present Illness: PMX Obesity SVT - B annamarie Arthralgia of multiple sites GERD Migraines Hypertension * SURGICAL HISTORY Right ankle surgery Appendectomy Breast biopsy Cholecystectomy Relevant Family History (Specify if Yes): No Relevant Social History: None Present Medications: see Short Stay Collaborative assessment Allergies: Allergies Allergy/AdvReac Type Severity Reaction Status Date / Time carbamazepine [From Tegretol] Allergy Intermediate RASH Verified 11/23/22 08:46 divalproex sodium Allergy Intermediate RASH Verified 11/23/22 08:46 [From Depakote] Iodinated Contrast Media Allergy Intermediate HIVES Verified 11/23/22 08:46 [IV Dye, Iodine Containing] Review of Systems Review of Systems Comment: Ten point ROS negative except as above Exam Exam Comment: Gen appear: No acute distress HEENT: no icterus Chest: No overt resp distress Abd: soft, nontender, nondistended Psych: Stable affect, answering questions appropriately Neuro: A/Ox3 noted to move all extremities spontaneously Ext: no peripheral edema Plan Diagnosis/Plan: Unchanged I have reviewed the history and physical and performed a pertinent physical examination on my patient. No changes have occurred unless specified. Time Spent With Patient Time: Total time managing care of this patient today ____ minutes.
--- NOTE | 2022-12-18 09:15 | P.OP_ITS ---
Operative Note Operative Note Date of Service: 12/18/22 Narrative: Procedure: Colonoscopy Indication: Personal history of polyps, chronic Diarrhea Endoscopist: Valorie Rizzo MD Anesthesia Provider: Isabel Keenan CRNA Anesthesia type: MAC Instrument: Olympus [id number]-[id number] Consent: Indication, risks vs benefits, and alternatives were discussed with the patient who gave written informed consent to proceed. EKG, pulse, pulse oximetry and blood pressure were monitored throughout the procedure. Please see ane sthesia flowsheet. Procedure: The patient was brought to the procedure room and placed in the left lateral decubitus position. IV medications were administered by the anesthesia provider in attendance. A digital rectal exam was performed which was normal. A distal attachment cap was affixed to the tip of the scope and the colonoscope was then inserted through the anus and advanced through the colon to the cecum at 70 cm,and terminal ileum. Appendiceal orifice and ileocecal valve were identified. Mucosa was carefully examined under high definition white light as the instrument was slowly withdrawn in a retrograde panoramic fashion. Retroflexion was performed in ascending colon and rectum. The procedure was not difficult. There were no immediate obvious complications. The quality of the prep was BBPS: 2+3+3 = adequate Withdrawal time 11 minutes. Limitations: No limitations. Findings: Mucosa: Normal to cecum and terminal ileum. Random cold forceps biopsies were taken from right and left side of the colon to r/o microscopic colitis. Protruding lesions: * 1 sessile polyp of size 1-2 mm in transverse colon. Cold forceps polypectomy was performed. The polyp was completely removed and retrieved. * Medium internal hemorrhoids without stigmata of recent bleeding. Excavated lesions: * Scattered diverticulosis of sigmoid colon. Impression: 1. Normal colon and terminal ileum mucosa (biopsy) 2. Total of 1 polyp removed from transverse colon. 3. Sigmoid diverticulosis 4. Internal hemorrhoids Recommendations: - Follow path results. - Repeat colonoscopy in 7-10 years if polyp is an adenoma.
[2022-12-18 09:25] VITALS: BP 127/70; PULSE 61; RESP 15; TEMP 36.1; O2SAT 97
[2022-12-18] MEDS: Lactated Ringers 1,000 ML 100 ML IVCONT (09:42)
[2022-12-18 10:04] LABS: Glucose, Whole Blood 101 mg/dL (60-115)
[2022-12-18 11:27] VITALS: BP 111/61; PULSE 65; RESP 16; TEMP 36.4; O2SAT 95
[2022-12-18 11:42] VITALS: BP 120/63; PULSE 67; RESP 18; TEMP 36.3; O2SAT 98
== END 2022-12-18 12:09 | disposition home or self-care (01) ==
PROVIDERS: PCP Internal Medicine; Visit Provider Internal Medicine
PROC: 0DJD8ZZ Inspection of Lower Intestinal Tract, Via Natural or Artificial Opening Endoscopic (ICD-10-PCS; CPT 45378; principal; 2022-12-18 10:20)
DX: K52.9 Noninfective gastroenteritis and colitis, unspecified (principal); Z86.010 Personal history of colon polyps; D12.3 Benign neoplasm of transverse colon; K64.8 Other hemorrhoids; Z79.899 Other long term (current) drug therapy
CPT/HCPCS: 45380; 82947; 88305

== ENCOUNTER → 2023-01-01 07:54 | Outpatient (BNVA) | payer BC, SELFPAY | PROVIDERS: PCP Internal Medicine; Referring Provider Internal Medicine; Visit Provider Nurse Practitioner | DX: Z13.89 Encounter for screening for other disorder (principal) ==

== ENCOUNTER 2023-02-07 09:10 | Outpatient (REF) | payer BC, SELFPAY ==
[2023-02-09 07:23] LABS: HPV mRNA E6/E7 rflx Not Detected (Not Detected)
== END 2023-02-07 09:11 | disposition home or self-care (01) ==
LOC: HO.LNP 09:10
PROVIDERS: PCP Internal Medicine; Visit Provider Obstetrics & Gynecology
DX: Z01.419 Encounter for gynecological examination (general) (routine) without abnormal findings (principal); Z11.51 Encounter for screening for human papillomavirus (HPV)
CPT/HCPCS: 87624; 88142

== ENCOUNTER 2023-04-08 08:07 | Outpatient (REF) | payer BC, SELFPAY ==
[2023-04-08 11:10] LABS: Appearance Urine Turbid; Color Urine Yellow; Glucose Urine UA >=1000 mg/dL (Negative); Leukocyte Esterase Urine Negative (Negative); Nitrite Urine Negative (Negative); Specific Gravity - Urine >= 1.030 (1.005-1.025); UMIC TRIGGER UACC YES; Urine Blood Negative (Negative); Urine Ketones Negative (Negative); Urine Protein 30 (1+) mg/dL (Neg-Trace)
[2023-04-08 11:13] LABS: Bacteria Urine Trace (None Seen); Hyaline Casts Urine 0-2 /LPF (0-2); RBC Urine 0-2 /HPF (0-2); WBC Urine 0-5 /HPF (0-5)
[2023-04-08 11:19] LABS: MANUAL DIFF FLAG NO
[2023-04-08 11:38] LABS: Basophils Percent Auto 0.4 % (0-2); Eosinophils Absolute Auto 0.2 X10*3/uL (0.0-0.4); Eosinophils Percent Auto 2.3 % (0-4); Hematocrit 39.3 % (37.0-47.0); Hemoglobin 12.6 g/dl (12.0-16.0); Imm Gran Abs Auto 0.03 X10*3/uL (0.00-0.03); Imm Gran Pct Auto 0.4 % (0.0-0.4); Lymphocytes Absolute Auto 2.2 X10*3/uL (1.2-4.9); Lymphocytes Percent Auto 29.4 % (20-40); Mean Corpuscular HGB Conc 32.1 g/dl (31.0-35.0); Mean Corpuscular Hemoglobin 28.6 pg (27.0-33.0); Mean Corpuscular Volume 89.3 fL (80.0-98.0); Monocytes Absolute Auto 0.5 X10*3/uL (0.1-1.2); Neutrophils Absolute Auto 4.6 x10*3/uL (2.0-8.3); Neutrophils Percent Auto 61.5 % (45-73); Platelet Count 274 X10*3/uL (160-400); Red Cell Distribution Width 13.2 % (11.0-16.0); White Blood Count 7.5 X10*3/uL (4.8-10.8)
[2023-04-08 11:49] LABS: Estimated Average Glucose 105 mg/dL; Hemoglobin A1c % 5.3 %
[2023-04-08 12:19] LABS: Alanine Aminotransferase 41 U/L (0-31); Albumin Level 4.2 g/dL (3.5-5.0); Alkaline Phosphatase 71 U/L (39-117); Anion Gap 11 (12-20); Aspartate Amino Transferase 33 U/L (5-31); Bilirubin Total 0.5 mg/dL (0.0-1.0); Blood Urea Nitrogen 11 mg/dL (9-16); Calcium 10.2 mg/dL (8.4-10.2); Carbon Dioxide 28 mmol/L (22-29); Chloride 105 mmol/L (96-108); Cholesterol 147 mg/dL; Estimated Glomerular Filt Rate > 60; Glucose Fasting 119 mg/dL (60-99); HDL Cholesterol 54 mg/dL; LDL Cholesterol Calculated 78 mg/dl; Potassium 3.9 mmol/L (3.3-5.1); Sodium 140 mmol/L (135-145); Triglycerides 75 mg/dL
[2023-04-08 12:21] LABS: Creatinine Urine 187.11 mg/dL; Microalbum/Creatinine Ratio Ur 60.9 ug/mg cr
[2023-04-08 12:34] LABS: TSH reflex Free T4 0.86 uIU/mL (0.32-4.0); Vitamin D 25-OH Total 73.4 ng/mL (>30)
== END 2023-04-08 08:08 | disposition home or self-care (01) ==
LOC: HO.HMGCLDS 08:07
PROVIDERS: PCP Internal Medicine; Visit Provider Internal Medicine
DX: I10 Essential (primary) hypertension (principal); E55.9 Vitamin D deficiency, unspecified; E11.9 Type 2 diabetes mellitus without complications; E78.00 Pure hypercholesterolemia, unspecified
CPT/HCPCS: 36415; 80053; 80061; 81001; 82043; 82306; 83036; 84443; 85025

== ENCOUNTER 2023-05-13 07:46 | Outpatient (REF) | payer BC, SELFPAY ==
--- NOTE | ~2023-05-13 | MM_ITS ---
EXAMINATION: MM SCREENING DIGITAL BREAST TOMOSYNTHESIS, BILATERAL CLINICAL INFORMATION: Screening. Asymptomatic. The lifetime risk of breast cancer based on the Tyrer-Cuzick Model is 5.9%. COMPARISON: Mammography: This study is compared with prior exams dating back to 2019. TECHNIQUE: Digital breast tomosynthesis is performed in both the craniocaudal and mediolateral oblique views along with computer-aided detection (CAD). Synthesized 2D images are generated from the tomosynthesis. FINDINGS: The breasts are heterogeneously dense, which may obscure small masses (ACR BI-RADS breast composition Category c). There are no significant masses, abnormal calcifications, or other abnormalities. Bilateral benign calcifications are present in each breast. MM/MM tomosynthesis screening BI IMPRESSION: No mammographic evidence of malignancy. ASSESSMENT: BI-RADS BI-RADS 2 - Benign Findings RECOMMENDATION: Routine annual mammography screening. 1 year F/U This examination should not preclude the clinical evaluation of a suspicious palpable abnormality. This patient's information was entered into a reminder system with a target due date for their next mammogram.
== END 2023-05-13 07:47 | disposition home or self-care (01) ==
LOC: HO.MAMMO 07:46
PROVIDERS: PCP Internal Medicine; Visit Provider Internal Medicine
DX: Z12.31 Encounter for screening mammogram for malignant neoplasm of breast (principal)
CPT/HCPCS: 77063; 77067

== ENCOUNTER → 2023-05-13 08:00 | Outpatient (BNV) | payer BC, SELFPAY | PROVIDERS: PCP Internal Medicine; Visit Provider Radiology Diagnostic Radiology | DX: Z12.31 Encounter for screening mammogram for malignant neoplasm of breast (principal) | CPT/HCPCS: 77063; 77067 ==

== ENCOUNTER 2023-08-23 08:05 | Outpatient (REF) | payer BC, SELFPAY ==
[2023-08-23 11:27] LABS: MANUAL DIFF FLAG NO
[2023-08-23 11:37] LABS: Basophils Percent Auto 0.4 % (0-2); Eosinophils Absolute Auto 0.1 X10*3/uL (0.0-0.4); Eosinophils Percent Auto 1.9 % (0-4); Hematocrit 41.7 % (37.0-47.0); Hemoglobin 13.3 g/dl (12.0-16.0); Imm Gran Abs Auto 0.02 X10*3/uL (0.00-0.03); Imm Gran Pct Auto 0.3 % (0.0-0.4); Lymphocytes Absolute Auto 2.6 X10*3/uL (1.2-4.9); Lymphocytes Percent Auto 34.3 % (20-40); Mean Corpuscular HGB Conc 31.9 g/dl (31.0-35.0); Mean Corpuscular Hemoglobin 28.1 pg (27.0-33.0); Mean Corpuscular Volume 88.2 fL (80.0-98.0); Mean Platelet Volume 10.9 fL (9.4-12.3); Monocytes Absolute Auto 0.5 X10*3/uL (0.1-1.2); Monocytes Percent Auto 6.4 % (2-11); Neutrophils Absolute Auto 4.3 x10*3/uL (2.0-8.3); Neutrophils Percent Auto 56.7 % (45-73); Platelet Count 291 X10*3/uL (160-400); Red Blood Count 4.73 X10*6/uL (4.20-5.50); Red Cell Distribution Width 12.9 % (11.0-16.0); White Blood Count 7.5 X10*3/uL (4.8-10.8)
[2023-08-23 11:46] LABS: Alanine Aminotransferase 36 U/L (0-31); Albumin Level 4.4 g/dL (3.5-5.0); Alkaline Phosphatase 78 U/L (39-117); Anion Gap 11 (12-20); Aspartate Amino Transferase 26 U/L (5-31); Bilirubin Total 0.4 mg/dL (0.0-1.0); Blood Urea Nitrogen 14 mg/dL (9-16); Carbon Dioxide 28 mmol/L (22-29); Chloride 104 mmol/L (96-108); Cholesterol 164 mg/dL (<200); Estimated Glomerular Filt Rate > 60; Glucose Fasting 125 mg/dL (60-99); HDL Cholesterol 58 mg/dL (>40); LDL Cholesterol Calculated 80 mg/dL (<100); Potassium 3.5 mmol/L (3.3-5.1); Sodium 139 mmol/L (135-145); Total Protein 8.4 g/dL (6.5-8.0); Triglycerides 134 mg/dL (<150)
[2023-08-23 11:58] LABS: Estimated Average Glucose 123 mg/dL; Hemoglobin A1c % 5.9 % (<6.0)
== END 2023-08-23 08:06 | disposition home or self-care (01) ==
LOC: HO.HMGCLDS 08:05
PROVIDERS: PCP Internal Medicine; Visit Provider Internal Medicine
DX: I10 Essential (primary) hypertension (principal); E11.9 Type 2 diabetes mellitus without complications; E78.00 Pure hypercholesterolemia, unspecified
CPT/HCPCS: 36415; 80053; 80061; 83036; 85025

== ENCOUNTER 2023-08-30 14:01 | Outpatient (AMB) | payer BC, SELFPAY ==
[2023-08-30 14:03] VITALS: BP 110/78; PULSE 69; O2SAT 97; BMI 34.2
--- NOTE | 2023-08-30 14:03 | A.OFFPC_ITS ---
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 blood-glucose meter (FreeStyle Lite Meter kit) As Directed 4 times a day ergocalciferol (vitamin D2) (Vitamin D2) 1,250 mcg PO QWEEK Farxiga (dapagliflozin propanediol) 10 mg PO QAM 90 days NS ibuprofen 800 mg PO TID PRN 90 days insulin lispro (Humalog KwikPen (U-100) Insulin) 1 sliding scale dose subcut QIDACHS MDD 30 units lancets (FreeStyle Lancets) Test four times a day or as directed. metformin 500 mg PO BID 90 days metoprolol succinate ER 25 mg PO DAILY ahgolwcbkb-eyquswoyz-sqlphnfno 40-5-25 mg 1 tab PO DAILY pantoprazole 40 mg PO DAILY pen needle, diabetic Use four times a day or as directed. sucralfate 1 tab PO DAILY Tobacco use date assessed: 08/30/23 Dental Screening Dental Screen Date: 08/30/23 Did you have a dental visit in the last 12 months?: No Did you have a dental problem in the last 6 months where you did not have access to dental care?: No Was dental information given to patient?: Patient has dentist HPI HTN, DM HPI Details Patient comes in today for her follow up visit States that she feels okay She denies any headaches or dizziness Denies any chest pains, no SOB No nausea/vomiting, no abdominal pain No change in bowel habits noted Had her follow up labs done last week - to discuss her results Would also like to get her flu shot today [facility] Medical History Pure hypercholesterolemia Diabetes mellitus SVT (supraventricular tachycardia) (Unknown) Obesity (BMI 30-39.9) Vitamin D deficiency GERD (gastroesophageal reflux disease) Migraine Benign essential hypertension Surgical History History of colonoscopy (~05/28/19) History of ankle surgery S/P appendectomy S/P breast biopsy S/P cholecystectomy Family History Father Heart disease Hypertension Mother Heart disease Hypertension Diabetes mellitus Maternal Grandmother No problems noted. Maternal Grandfather No problems noted. Paternal Grandfather No problems noted. 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 1. Little interest or pleasure in doing things: not at all 2. Feeling down, depressed, or hopeless: not at all 3. Trouble falling or staying asleep, or sleeping too much: not at all 4. Feeling tired or having little energy: not at all 5. Poor appetite or overeating: not at all 6. Feeling bad about yourself - or that you are a failure or have let yourself or your family down: not at all 7. Trouble concentrating on things, such as reading the newspaper or watching television: not at all 8. Moving or speaking so slowly that other people could have noticed. Or the opposite - being so fidgety or restless that you have been moving around a lot more than usual: not at all 9. Thoughts that you would be better off or of hurting yourself in some way: not at all Total score: 0 Depression Screening Interpretation: Negative Depression Screening Done: Yes 94859 - PHQ-9 Billing: Yes Source: Developed by Drs. David Briones, Nury Britton, Shabbir Knox and colleagues, with an educational jean claude from [email or web address]. Thrive Questionnaire Date Thrive assessed: 08/30/23 I am a: Patient What is your living situation today?: I have a steady place to live Within the past 12 months, did the food you bought not last and you didn't have the money to get more?: Never true Within the past 12 months, did you worry whether your food would run out before you got money to buy more?: Never true Do you have trouble paying for medicines?: No Do you have trouble getting transportation to medical appointments?: No Do you have trouble paying your heating and electricity bill?: No Do you have trouble taking care of your child, family member or friend?: No Do you have trouble with day-to-day activities such as bathing, preparing meals, shopping, managing finances, etc.?: No Are you currently unemployed and looking for a job?: No Are you interested in more education?: No Please select the resources that you would like help with: None Currently or been in a relationship where the following occur: no concerns reported AUDIT C Alcohol Use Questionnaire (AUDIT-C) 1. How often do you have a drink containing alcohol?: Monthly or less 2. How many drinks containing alcohol do you have on a typical day when you are drinking?: 1 or 2 3. How often do you have six or more drinks on one occasion?: Never Total Score: 1 Score Reviewed/Action Taken: Yes RAMON-7 AMB Questionnaire RAMON-7 Date RAMON - 7 assessed: 08/30/23 Feeling nervous, anxious, or on edge: 0 = Not at all Not being able to stop or control worryin = Not at all Worrying too much about different things: 0 = Not at all Trouble relaxin = Not at all Being so restless that it is hard to sit still: 0 = Not at all Becoming easily annoyed or irritable: 0 = Not at all Feeling afraid as if something awful might happen: 0 = Not at all Total RAMON-7 score (0-4 normal; 5-9 mild; 10-14 moderate; 15-21 severe): 0 Source: Developed by Drs. David Briones, Nury Britton, Shabbir Knox and colleagues, with an educational jean claude from [email or web address]. Review of Systems Const Denies chills, Denies fatigue, Denies fever(s) and Denies headache(s) ENT Denies dysphagia, Denies dizziness, Denies otalgia, Denies headache(s), Denies nasal congestion, Denies neck pain, Denies odynophagia and Denies sore throat Card Denies chest pain, Denies rapid heart rate, Denies irregular heart rhythm, Denies palpitations and Denies dyspnea Resp Denies cough, Denies dyspnea and Denies wheezing GI Denies abdominal pain, Denies bloating, Denies change in bowel habits, Denies constipation, Denies dysphagia, Denies heartburn, Denies diarrhea, Denies nausea, Denies odynophagia and Denies vomiting Denies hematuria, Denies urinary frequency, Denies dysuria, Denies urinary incontinence and Denies urinary urgency Musc Denies back pain, Denies arthralgias and Denies neck pain Skin/Breast Denies rash Neuro Denies dizziness, Denies headache(s) and Denies paresthesias Endo Denies fatigue and Denies palpitations Aller/Immun Denies wheezing Physical exam (Primary Care) Vital Signs: Last Vital Signs Pulse 69 08/30/23 14:03 BP 110/78 08/30/23 14:03 Pulse Ox 97 08/30/23 14:03 Oxygen Delivery Method Room Air 08/30/23 14:03 BMI result Body Mass Index 34.2 Tobacco/Smoking Status: Tobacco use Status Tobacco use date assessed 08/30/23 08/30/23 14:06 Patient Tobacco Use Status Former Tobacco user 08/30/23 14:06 e-Cigarette/Vaping Use Never Used 08/30/23 14:06 PHQ-9: PHQ-9 Score PHQ-9: Total score 0 08/30/23 14:28 Depression Screening Interpretation: Negative Thrive Assessment: Date of Thrive Assessment Date Thrive assessed 08/30/23 08/30/23 14:06 Currently or been in a relationship where the following occur: no concerns reported Const General: no acute distress and alert HENMT Ears: TM's normal bilaterally and EAC's normal Throat: Yes posterior oropharynx normal and Yes tonsils normal (no TP congestion) Neck Neck: Yes no lymphadenopathy and Yes supple Thyroid: Thyroid normal Resp Auscultation: clear to auscultation bilaterally, no rales and no wheezes Cardio Rate: regular rate Rhythm: regular rhythm Heart sounds: no murmurs GI Palpation (GI): Soft to palpation and nontender Auscultation: normal bowel sounds General: Yes no CVA tenderness Back/Spine/Pelvis Back: no CVA tenderness Thoracic/Lumbar Spine: thoracic and lumbar spine normal to inspection Skin Rashes: no rashes Extrem General: Yes no clubbing, cyanosis or edema Office Procedures Flu Questionnaire Does the patient have a severe egg allergy?: No Does the patient have severe life threatening allergies?: No Does the patient have a fever or illness today?: No Has the patient ever had Guillain-Krypton Syndrome?: No Has the patient ever had any past reaction to a flu shot?: No Immunizations flu vacc [id number] 6mos up(PF) 60 mcg(15 mcgx4)/0.5 mL IM syringe Performing Provider: Portillo Guy MD Performing Location: [facility] Administered by: Blue Ashley on 08/30/23 14:53 Dose Route Admin Location Dispensed Lot Number Expiration Date NDC [employer] 0.5 mL IM Left Deltoid 0.5 mL [id number] 04/12/24 21250-690-70 [employer] VIS Given Date VIS Provided VIS Publication Date 08/30/23 Single Vaccine 21 Eligibility Eligibility Date Funding Source Not [facility] Eligible 08/30/23 Private Results Reviewed Results Reviewed: Laboratory Tests 08/23/23 08:08 WBC 7.5 Hgb 13.3 Hct 41.7 Plt Count 291 Sodium 139 Potassium 3.5 Creatinine 0.78 Estimated GFR > 60 Fasting Glucose 125 H Hemoglobin A1c % 5.9 Calcium 10.0 AST 26 ALT 36 H Triglycerides 134 Cholesterol 164 LDL Cholesterol, Calc 80 HDL Cholesterol 58 Assessment and Plan Assessment & Plan (1) Diabetes mellitus: Code(s): E11.9 - Type 2 diabetes mellitus without complications Qualifiers: Diabetes mellitus type: type 2 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 mellitus 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 Diabetes mellitus complication status: without complication Qualified Code(s): E11.9 - Type 2 diabetes mellitus without complications; Z79.4 - 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 (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 of insulin Plan: Patient is cautioned that her HgbA1c has increased to 5.9% on her labs done last week (was at 5.3% a few months ago) - goal is <6.5% Reinforced diabetic diet Is currently only on Farxiga 10 mg QD for her diabetes She was hardly taking her Humalog before meals for a few months earlier this year as her blood sugar readings were often been normal when she checked them and she was instructed to STOP her Humalog after her last visit to see how she does without any injection Rx at the time She was also taken OFF her Metformin at her last visit to see how she does without it but it appears that Metformin was helping her a lot as her HgbA1c and weight have both gone up since She was taken her off Lantus as well at a previous visit when her insurance declined to continue covering the Rx Will have her go back on her Metformin and she will now again be on both Metformin 500 mg BID and Farxiga 10 mg QD Will recheck her labs in 4 months for follow up (2) Benign essential hypertension: Code(s): I10 - Essential (primary) hypertension Plan: Reinforced low sodium diet - goal is systolic BP of at least 120 to 130 mm or less Continue Zxoctofypt-Gcpzmkewdg-YNDP 40-5-25 mg QD and Metoprolol ER 25 mg QD (3) Palpitations: Comment: Dx with SVT, 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 Code(s): R00.2 - Palpitations Plan: Has been seen and followed by cardiology in the past although she has not been back to see them in over 2 to 3 years - was advised at her last appointment with them that she can just see them on an as-needed basis Echocardiogram done in 2017 showed normal LVEF, normal wall motion with no significant valvular abnormality; 30-day LUAN showed only sinus rhythm with no evidence of arrhythmias Was treated empirically with Metoprolol ER, which she states has kept her arrhythmias and palpitations mostly under control with only occasional episodes felt since Continue Metoprolol ER 25 mg QD (4) Migraine: Code(s): G43.909 - Migraine, unspecified, not intractable, without status migrainosus Qualifiers: Migraine type: unspecified Status migrainosus presence: without status migrainosus Intractability: not intractable Qualified Code(s): G43.909 - Migraine, unspecified, not intractable, without status migrainosus Plan: Stable; continue Ibuprofen 800 mg PRN Reinforced avoidance of migraine triggers (5) GERD (gastroesophageal reflux disease): Code(s): K21.9 - Gastro-esophageal reflux disease without esophagitis Qualifiers: Esophagitis presence: without esophagitis Qualified Code(s): K21.9 - Gastro-esophageal reflux disease without esophagitis Plan: Dietary restrictions reinforced Continue Pantoprazole 40 mg QD (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 Plan: Primarily due to postcholecystectomy Continue Carafate 1 gm QD Patient is again reminded to avoid eating a lot fried, greasy or oily foods to minimize her symptoms and she appears to be doing well so far with her GI symptoms (7) Vitamin D deficiency: Code(s): E55.9 - Vitamin D deficiency, unspecified Plan: Corrected - continue Vitamin D2 79470 units once a week (8) Ureterolithiasis: Code(s): N20.1 - Calculus of ureter Plan: (+) 7 mm calculus at the left UVJ with hydronephrosis seen on CT a few months ago S/P cystoscopy, stone basketing from left ureteral orifice and left stent placement Patient states that she has not had any flare ups of her urinary tract symptoms since Follow up with urology as scheduled (9) Obesity (BMI 30-39.9): Code(s): E66.9 - Obesity, unspecified Plan: Reinforced diet/exercise as tolerated/lose weight Plan Flu vaccine given today Follow up in 4 months Orders: Orders Comprehensive [place]. Panel Fast 4 Months E78.00 - Pure hypercholesterolemia, unspecified Microalbumin, Random (w Creat) 4 Months E11.9 - Type 2 diabetes mellitus without complications TSH reflex Free T4 4 Months E78.00 - Pure hypercholesterolemia, unspecified UA CC w/rflx Micro + Cult 4 Months R30.0 - Dysuria Influenza [id number] Immunization Today Z23 - Encounter for immunization Complete Blood Count Auto Diff 4 Months I10 - Essential (primary) hypertension Lipid Panel 4 Months E78.00 - Pure hypercholesterolemia, unspecified Hemoglobin A1c 4 Months E11.9 - Type 2 diabetes mellitus without complications Vitamin D 25-OH Total 4 Months E55.9 - Vitamin D deficiency, unspecified Coding Level of Care Code Est Pt Level 4 (09222) Diagnoses Type 2 diabetes mellitus without complication, with long-term current use of insulin E11.9; Z79.4 Diabetes mellitus type: type 2 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
== END 2023-08-30 14:51 | disposition home or self-care (01) ==
PROVIDERS: PCP Internal Medicine; Visit Provider Internal Medicine
DX: E11.9 Type 2 diabetes mellitus without complications (principal); Z79.4 Long term (current) use of insulin; I10 Essential (primary) hypertension; R00.2 Palpitations; G43.909 Migraine, unspecified, not intractable, without status migrainosus; Z23 Encounter for immunization; K21.9 Gastro-esophageal reflux disease without esophagitis; K90.89 Other intestinal malabsorption; E55.9 Vitamin D deficiency, unspecified; N20.1 Calculus of ureter; E66.9 Obesity, unspecified
CPT/HCPCS: 90471; 90686; 99214

== ENCOUNTER 2023-11-14 08:03 | Outpatient (REF) | payer BC, SELFPAY ==
--- NOTE | ~2023-11-14 | US_ITS ---
EXAMINATION: US RETROPERITONEAL LIMITED (RENAL ONLY) CLINICAL INFORMATION: Calculus of kidney. COMPARISON: Renal ultrasound 11/08/2022 and 05/07/2022. CT abdomen and pelvis 03/12/2022. TECHNIQUE: Real-time imaging of the kidneys. FINDINGS: RIGHT KIDNEY: 11.0 x 4.4 x 5.9 cm (SAG x AP x TRV). The kidney is normal in size, contour, and echogenicity. Renal cortical thickness is normal. No focal parenchymal lesions. At the upper pole, a 2 mm nonobstructing calculus is seen, with twinkle artifact. At the interpolar aspect. At the interpolar aspect, a 2 mm hyperechoic focus is seen, which does not a formal ultrasound criteria for a calculus. LEFT KIDNEY: 11.7 x 6.1 x 4.9 cm (SAG x AP x TRV). The kidney is normal in size, contour, and echogenicity. Renal cortical thickness is normal. No calculi or focal parenchymal lesions. No hydronephrosis. US/US renal BI IMPRESSION: A 2 mm nonobstructing right renal calculus is seen. No left renal calculus is seen. No hydronephrosis is noted bilaterally.
== END 2023-11-14 08:04 | disposition home or self-care (01) ==
LOC: HO.HMGCX 08:03
PROVIDERS: PCP Internal Medicine; Visit Provider Urology
DX: N20.0 Calculus of kidney (principal)
CPT/HCPCS: 76775

== ENCOUNTER 2023-11-16 10:07 | Outpatient (AMB) | payer BC, SELFPAY ==
[2023-11-16 10:50] VITALS: BP 118/74; PULSE 68; TEMP 36.7; O2SAT 98
--- NOTE | 2023-11-16 10:50 | MHC.OFFWIV ---
Intake Vital Signs 11/16/23 10:50 Height 5 ft 4 in BMI Reason not done Patient refused/unable BP 118/74 Blood Pressure Location Rt brachial Position Sitting Pulse 68 Pulse Source Pulse Oximeter Temp 98.1 F Temp Source Oral Pulse Oximetry (%) 98 Intake Visit Reasons: EP sinus infection Intake Note: pt is here for c/o sinus infection, and ear pain Patient Tobacco Use Status: Former Tobacco user Quit Date: 30 yrs ago Allergies carbamazepine [From Tegretol] Allergy (Intermediate, Verified 11/16/23 10:51) RASH divalproex sodium [From Depakote] Allergy (Intermediate, Verified 11/16/23 10:51) RASH Iodinated Contrast Media [IV Dye, Iodine Containing] Allergy (Intermediate, Verified 11/16/23 10:51) HIVES Do you need a note to return to daycare/school/sports/work: No HPI HPI Comments History of Present Illness Details This is a 63-year-old female who presented to the office complaining of facial pain x3 days in the setting of persistent/worsening nasal/sinus congestion and rhinorrhea with green/yellow nasal discharge x2 weeks. She denies any fevers or chills. She denies any sore throat. She denies any otalgia but states that her ears feel full. [facility] Medical History Pure hypercholesterolemia Diabetes mellitus SVT (supraventricular tachycardia) (Unknown) Obesity (BMI 30-39.9) Vitamin D deficiency GERD (gastroesophageal reflux disease) Migraine Benign essential hypertension Surgical History History of colonoscopy (~05/28/19) History of ankle surgery S/P appendectomy S/P breast biopsy S/P cholecystectomy Family History Father Heart disease Hypertension Mother Heart disease Hypertension Diabetes mellitus Maternal Grandmother No problems noted. Maternal Grandfather No problems noted. Paternal Grandfather No problems noted. 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 Cognitive needs: No Hearing needs: No Vision needs: No Review of Systems Const All systems reviewed & are unremarkable except as noted in HPI and below Reports no additional complaints Eyes Reports no additional complaints ENT Reports no additional complaints Card Reports no additional complaints Resp Reports no additional complaints GI Reports no additional complaints Reports no additional complaints Musc Reports no additional complaints Skin/Breast Reports system reviewed and no additional complaints, except as documented Neuro Reports no additional complaints Psych Reports no additional complaints Endo Reports no additional complaints Hunter/Lymph Reports no additional complaints Aller/Immun Reports no additional complaints Physical Exam Vital Signs: Last Vital Signs Temp 98.1 F 11/16/23 10:50 Pulse 68 11/16/23 10:50 BP 118/74 11/16/23 10:50 Pulse Ox 98 11/16/23 10:50 Const Other: Vital signs reviewed. Constitutional: Non-toxic appearing. No acute distress. Well-developed and well-nourished. HEENT: Normocephalic and atraumatic. There is mild effusion behind bilateral tympanic membranes but tympanic membranes erythematous or edematous. External auditory canals without erythema or edema bilaterally. Moist mucous membranes. No pharyngeal erythema or exudates. She has mild maxillary tenderness to palpation. Skin: Warm and dry. No rashes or lesions noted. Neck: Full and painless range of motion. No cervical lymphadenopathy. Cardio: Regular rate and rhythm. No murmurs, gallops, or rubs. No lower extremity edema. No JVD. Pulmonary: No respiratory distress. No accessory muscle usage. Clear to auscultation bilaterally without wheezing, crackles, or rhonchi. Gastrointestinal: Soft, nontender, and nondistended in all 4 quadrants. Musculoskeletal: Normal range of motion in joints throughout the body. No deformity or other signs of injury. Neuro: Alert and oriented x4. Cranial nerves 2-12 grossly intact. No focal deficits appreciated. Psych: Normal mood and affect. Assessment & Plan Assessment & Plan (1) Acute bacterial rhinosinusitis: Code(s): J01.90 - Acute sinusitis, unspecified; B96.89 - Other specified bacterial agents as the cause of diseases classified elsewhere Plan: This is a 63-year-old female who presented to the office complaining facial pain in the setting of persistent nasal/sinus congestion and rhinorrhea x2 weeks. Given duration of symptoms as well as maxillary sinus tenderness to palpation, there is concern for acute bacterial rhinosinusitis. Patient was given a prescription for p.o. amoxicillin/clavulanate 875/125 mg twice daily x7 days. Recommended symptomatic management including rest, increased fluids, advil/tylenol for pain/fever, and over the counter throat lozenges/decongestants. Patient advised to follow up here or go to the emergency room for worsening/persistent symptoms. Patient verbalized understanding and is agreeable with the plan. Medications: New amoxicillin-pot clavulanate 875-125 mg 1 tab PO BID 14 tabs 0RF Coding Level of Care Code Est Pt Level 3 (87786) Diagnoses Acute bacterial rhinosinusitis J01.90; B96.89
== END 2023-11-16 11:34 | disposition home or self-care (01) ==
PROVIDERS: PCP Internal Medicine; Visit Provider Physician Assistant Medical
DX: J01.90 Acute sinusitis, unspecified (principal); B96.89 Other specified bacterial agents as the cause of diseases classified elsewhere
CPT/HCPCS: 99213

== ENCOUNTER 2023-11-21 10:06 | Outpatient (AMB) | payer BC, SELFPAY ==
[2023-11-21 10:35] VITALS: BP 122/80; PULSE 65; O2SAT 96; BMI 33.3
--- NOTE | 2023-11-21 10:35 | MHC.PC.OV ---
Vital Signs 11/21/23 10:35 Height 5 ft 4 in Weight 194 lb BMI 33.3 BP 122/80 Blood Pressure Location Lt brachial Position Sitting Pulse 65 Pulse Source Pulse Oximeter Pulse Oximetry (%) 96 Oxygen Delivery Method Room Air Intake Visit Reasons: Annual Exam Interactive Art Director Required: No Accompanied by: Self / Same As Patient Allergies carbamazepine [From Tegretol] Allergy (Intermediate, Verified 11/21/23 11:02) RASH divalproex sodium [From Depakote] Allergy (Intermediate, Verified 11/21/23 11:02) RASH Iodinated Contrast Media [IV Dye, Iodine Containing] Allergy (Intermediate, Verified 11/21/23 11:02) HIVES Medication List - Last Reconciled 11/21/23 by Portillo Guy MD alcohol swabs 1 pad topical QIDACHS amoxicillin-pot clavulanate 875-125 mg 1 tab PO BID blood sugar diagnostic (FreeStyle Lite Strips) Test four times a day or as directed. blood-glucose meter (FreeStyle Lite Meter kit) As Directed 4 times a day ergocalciferol (vitamin D2) (Vitamin D2) 1,250 mcg PO QWEEK Farxiga (dapagliflozin propanediol) 10 mg PO QAM 90 days NS ibuprofen 800 mg PO TID PRN 90 days insulin lispro (Humalog KwikPen (U-100) Insulin) 1 sliding scale dose subcut QIDACHS MDD 30 units lancets (FreeStyle Lancets) Test four times a day or as directed. metformin 500 mg PO BID 90 days metoprolol succinate ER 25 mg PO DAILY zakseckbri-yqqnhkkbz-zttwlpauy 40-5-25 mg 1 tab PO DAILY pantoprazole 40 mg PO DAILY pen needle, diabetic Use four times a day or as directed. sucralfate 1 tab PO DAILY Tobacco use date assessed: 11/21/23 Dental Screening Dental Screen Date: 11/21/23 Did you have a dental visit in the last 12 months?: No Did you have a dental problem in the last 6 months where you did not have access to dental care?: No Was dental information given to patient?: No HPI Annual Exam HPI Details Patient comes in today for her annual physical examination States that she feels well She denies any headaches or dizziness Denies any chest pains, no SOB No nausea/vomiting, no abdominal pain No change in bowel habits noted Denies any acute urinary symptoms She was not able to get her previously ordered labs done prior to her appointment today - was told by the lab that her orders were for December 2023 and they cannot do them too early Patient states that her physical exam appointment today was already scheduled from last year so she opted to keep her original appointment when she checked out last time instead of having them move her appt into December (2023) She had her screening mammogram done last April 2023 and is scheduled for her next one on 05/18/2024 She is scheduled to see Dr. Newman for her annual gynecologic exam and pap smear in February 2024 Had her screening colonoscopy done last year and she will be due for her repeat colonoscopy in 10 years (2032) [facility] Medical History Pure hypercholesterolemia Diabetes mellitus SVT (supraventricular tachycardia) (Unknown) Obesity (BMI 30-39.9) Vitamin D deficiency GERD (gastroesophageal reflux disease) Migraine Benign essential hypertension Surgical History History of colonoscopy (~05/28/19) History of ankle surgery S/P appendectomy S/P breast biopsy S/P cholecystectomy Family History Father Heart disease Hypertension Mother Heart disease Hypertension Diabetes mellitus Maternal Grandmother No problems noted. Maternal Grandfather No problems noted. Paternal Grandfather No problems noted. 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 1. Little interest or pleasure in doing things: not at all 2. Feeling down, depressed, or hopeless: not at all 3. Trouble falling or staying asleep, or sleeping too much: not at all 4. Feeling tired or having little energy: not at all 5. Poor appetite or overeating: not at all 6. Feeling bad about yourself - or that you are a failure or have let yourself or your family down: not at all 7. Trouble concentrating on things, such as reading the newspaper or watching television: not at all 8. Moving or speaking so slowly that other people could have noticed. Or the opposite - being so fidgety or restless that you have been moving around a lot more than usual: not at all 9. Thoughts that you would be better off or of hurting yourself in some way: not at all Total score: 0 Depression Screening Interpretation: Negative Depression Screening Done: Yes 22240 - PHQ-9 Billing: Yes Source: Developed by Drs. David Briones, Nury Britton, Shabbir Knox and colleagues, with an educational jean claude from [employer]. Thrive Questionnaire Date Thrive assessed: 11/21/23 I am a: Patient What is your living situation today?: I have a steady place to live Within the past 12 months, did the food you bought not last and you didn't have the money to get more?: Never true Within the past 12 months, did you worry whether your food would run out before you got money to buy more?: Never true Do you have trouble paying for medicines?: No Do you have trouble getting transportation to medical appointments?: No Do you have trouble paying your heating and electricity bill?: No Do you have trouble taking care of your child, family member or friend?: No Do you have trouble with day-to-day activities such as bathing, preparing meals, shopping, managing finances, etc.?: No Are you currently unemployed and looking for a job?: No Are you interested in more education?: No Please select the resources that you would like help with: None Currently or been in a relationship where the following occur: no concerns reported THRIVE Score: 0 AUDIT C Alcohol Use Questionnaire (AUDIT-C) 1. How often do you have a drink containing alcohol?: Monthly or less 2. How many drinks containing alcohol do you have on a typical day when you are drinking?: 1 or 2 3. How often do you have six or more drinks on one occasion?: Never Total Score: 1 Score Reviewed/Action Taken: Yes RAMON-7 AMB Questionnaire RAMON-7 Date RAMON - 7 assessed: 11/21/23 Feeling nervous, anxious, or on edge: 0 = Not at all Not being able to stop or control worryin = Not at all Worrying too much about different things: 0 = Not at all Trouble relaxin = Not at all Being so restless that it is hard to sit still: 0 = Not at all Becoming easily annoyed or irritable: 0 = Not at all Feeling afraid as if something awful might happen: 0 = Not at all Total RAMON-7 score (0-4 normal; 5-9 mild; 10-14 moderate; 15-21 severe): 0 Source: Developed by Drs. David Briones, Nury Britton, Shabbir Knox and colleagues, with an educational jean claude from [employer]. Review of Systems Const Denies chills, Denies fatigue, Denies fever(s), Denies headache(s) and Denies malaise Eyes Denies blurry vision, Denies change in vision, Denies irritation and Denies itchy eyes ENT Denies dysphagia, Denies dizziness, Denies otalgia, Denies headache(s), Denies nasal congestion, Denies neck pain, Denies odynophagia, Denies sinus pain and Denies sore throat Card Denies chest pain, Denies rapid heart rate, Denies irregular heart rhythm, Denies palpitations and Denies dyspnea Resp Denies chest congestion, Denies cough, Denies dyspnea and Denies wheezing GI Denies abdominal pain, Denies bloating, Denies constipation, Denies dysphagia, Denies heartburn, Denies diarrhea, Denies nausea, Denies odynophagia and Denies vomiting Denies hematuria, Denies urinary frequency, Denies dysuria, Denies urinary incontinence and Denies urinary urgency Musc Denies back pain, Denies arthralgias, Denies joint swelling, Denies muscle weakness and Denies neck pain Skin/Breast Denies breast pain, Denies breast mass, Denies change in pigmentation, Denies lesions, Denies rash and Denies unusual bruising Neuro Denies dizziness, Denies headache(s) and Denies paresthesias Psych Denies anxiety and Denies depression Endo Denies fatigue and Denies palpitations Hunter/Lymph Denies easy bruising Aller/Immun Denies itchy eyes and Denies wheezing Physical exam (Primary Care) Vital Signs: Last Vital Signs Pulse 65 11/21/23 10:35 BP 122/80 11/21/23 10:35 Pulse Ox 96 11/21/23 10:35 Oxygen Delivery Method Room Air 11/21/23 10:35 BMI result Body Mass Index 33.3 Tobacco/Smoking Status: Tobacco use Status Tobacco use date assessed 11/21/23 11/21/23 10:42 Patient Tobacco Use Status Former Tobacco user 11/21/23 10:42 e-Cigarette/Vaping Use Never Used 11/21/23 10:42 PHQ-9: PHQ-9 Score PHQ-9: Total score 0 11/21/23 10:42 Depression Screening Interpretation: Negative Thrive Assessment: Date of Thrive Assessment Date Thrive assessed 11/21/23 11/21/23 10:42 Currently or been in a relationship where the following occur: no concerns reported Const General: no acute distress, alert and awake Orientation/consciousness: patient oriented x3 HENMT Head: Yes normocephalic and Yes atraumatic Ears: external ears normal, TM's normal bilaterally and EAC's normal General nose exam: No nasal discharge present Face and sinus: Yes normal facial exam and Yes sinuses nontender Teeth and gingiva: dentition normal Throat: Yes posterior oropharynx normal and Yes tonsils normal (no TP congestion) Eyes Eyelids: Yes eyelids normal Conjunctivae: conjunctivae normal Pupils: Equal, round and reactive pupils present EOM: EOMs intact bilaterally Neck Neck: Yes no lymphadenopathy and Yes supple Thyroid: Thyroid normal Resp Auscultation: clear to auscultation bilaterally, no rales and no wheezes Cardio Rate: regular rate Rhythm: regular rhythm Heart sounds: no murmurs GI Palpation (GI): Soft to palpation, nontender and No hepatosplenomegaly present Auscultation: normal bowel sounds General: Yes no CVA tenderness Back/Spine/Pelvis Back: no CVA tenderness Thoracic/Lumbar Spine: thoracic and lumbar spine normal to inspection Skin Lesions: no lesions Rashes: no rashes Neuro General: patient oriented x3, moves all extremities, no focal motor deficits and CN's II-XI intact bilaterally Cranial nerves: Yes Equal, round and reactive pupils present Cognition (Neuro): normal cognition Gait exam (Neuro): Normal gait present Extrem General: Yes no clubbing, cyanosis or edema Assessment and Plan Assessment & Plan (1) Annual physical exam: Code(s): Z00.00 - Encounter for general adult medical examination without abnormal findings Plan: Patient is up-to-date with all of her cancer screenings - next colonoscopy is due in 2032; she is scheduled for her gynecologic exam and pap smear in February 2024 and her mammogram in May 2024 She was not able to get her follow up labs done as they were ordered for December 2023 but her physical exam today was originally scheduled from last year and she opted to keep her schedule the same Advised that her labs back in August 2023 were mostly acceptable and we can forgo her labs this time - will reschedule all of her labs for March 2024 (2) Diabetes mellitus: Code(s): E11.9 - Type 2 diabetes mellitus without complications Qualifiers: Diabetes mellitus type: type 2 Diabetes mellitus group home insulin use: with group home use Diabetes mellitus complication status: without complication Qualified Code(s): E11.9 - Type 2 diabetes mellitus without complications; Z79.4 - longterm (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 of insulin Plan: Her HgbA1c was at 5.9% when last checked in August 2024 (was previously at 5.3% a few months prior) - goal is <6.5% Reinforced diabetic diet Continue Metformin 500 mg BID and Farxiga 10 mg QD Will recheck her labs in 4 months for follow up (3) Benign essential hypertension: Code(s): I10 - Essential (primary) hypertension Plan: Reinforced low sodium diet - goal is systolic BP of at least 120 to 130 mm or less Continue Wrspszoacq-Hwraokirzo-WYFU 40-5-25 mg QD and Metoprolol ER 25 mg QD (4) Palpitations: Comment: Dx with SVT, 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 Code(s): R00.2 - Palpitations Plan: She has been seen and followed by cardiology in the past for this issue although she has not been back to see them in over 3 years - was supposedly advised at her last appointment with them that she can just see them on an as-needed basis Echocardiogram done in 2016 showed normal LVEF, normal wall motion with no significant valvular abnormality; 30-day LUAN showed only sinus rhythm with no evidence of arrhythmias Was treated empirically with Metoprolol ER, which she states has kept her arrhythmias and palpitations mostly under control with only occasional episodes felt since Continue Metoprolol ER 25 mg QD (5) Migraine: Code(s): G43.909 - Migraine, unspecified, not intractable, without status migrainosus Qualifiers: Migraine type: unspecified Status migrainosus presence: without status migrainosus Intractability: not intractable Qualified Code(s): G43.909 - Migraine, unspecified, not intractable, without status migrainosus Plan: Stable; continue Ibuprofen 800 mg PRN Reinforced avoidance of migraine triggers (6) GERD (gastroesophageal reflux disease): Code(s): K21.9 - Gastro-esophageal reflux disease without esophagitis Qualifiers: Esophagitis presence: without esophagitis Qualified Code(s): K21.9 - Gastro-esophageal reflux disease without esophagitis Plan: Dietary restrictions reinforced Continue Pantoprazole 40 mg QD (7) Bile salt-induced diarrhea: Code(s): 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 Plan: Primarily due to postcholecystectomy Continue Carafate 1 gm QD Patient is again reminded to avoid eating a lot fried, greasy or oily foods to minimize her symptoms and she appears to be doing well so far with regards to her GI symptoms (8) Vitamin D deficiency: Code(s): E55.9 - Vitamin D deficiency, unspecified Plan: Continue Vitamin D2 62169 units once a week (9) Ureterolithiasis: Code(s): N20.1 - Calculus of ureter Plan: (+) 7 mm calculus at the left UVJ with hydronephrosis seen on CT a few months ago S/P cystoscopy, stone basketing from left ureteral orifice and left stent placement Patient states that she has not had any flare ups of her urinary tract symptoms or issues with kidney stones since Follow up with urology as scheduled - states that she rescheduled her appt with Dr. 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
== END 2023-11-21 11:21 | disposition home or self-care (01) ==
PROVIDERS: PCP Internal Medicine; Visit Provider Internal Medicine
DX: Z00.00 Encounter for general adult medical examination without abnormal findings (principal); E11.9 Type 2 diabetes mellitus without complications; E66.9 Obesity, unspecified; Z68.33 Body mass index [BMI] 33.0-33.9, adult; Z79.4 Long term (current) use of insulin; I10 Essential (primary) hypertension; R00.2 Palpitations; G43.909 Migraine, unspecified, not intractable, without status migrainosus; K21.9 Gastro-esophageal reflux disease without esophagitis; K90.89 Other intestinal malabsorption; E55.9 Vitamin D deficiency, unspecified; N20.1 Calculus of ureter
CPT/HCPCS: 99396

== ENCOUNTER 2023-12-25 13:52 | Outpatient (AMB) | payer BC, SELFPAY ==
--- NOTE | 2023-12-25 13:54 | A.OFFVIS_ITS ---
Intake Intake Visit Reasons: 1Y US(set) CONFIRMED Intake Note: Patient presents today for a yearly follow-up/US Meds- None Allergies to Antibiotic- No Known Allergies Blood Thinner- None Patient stated having burning during urination, patient provided an urine sample today. 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 She is a patient Dr. Guy. She is seen for the following urologic conditions - nephrolithiasis Has been on metformin Continue fluid intake Twelve month surveillance Vitamin B6 Nephrolithiasis Left distal ureteric stone - with intervention 03/04 Prior stone passage without intervention Stone analysis - 03/04 calcium oxalate dihydrate 80% Imaging - 03/04 distal left ureteric stone with h ydroureteronephrosis - 05/04 renal ultrasound question 4 mm ri ght - 11/05 renal ultrasound no evidence of s tones - 12/07 renal ultrasound possible small s tone 2 mm right, nothing left 24 hour urine - 05/04 borderline oxalate, and good volu me, low calcium, moderate salt - dietary advice provided Therapeutic plan - 12 month follow-up imaging [facility] Medical History Pure hypercholesterolemia Diabetes mellitus SVT (supraventricular tachycardia) (Unknown) Obesity (BMI 30-39.9) Vitamin D deficiency GERD (gastroesophageal reflux disease) Migraine Benign essential hypertension Surgical History History of colonoscopy (~05/28/19) History of ankle surgery S/P appendectomy S/P breast biopsy S/P cholecystectomy Family History Father Heart disease Hypertension Mother Heart disease Hypertension Diabetes mellitus Maternal Grandmother No problems noted. Maternal Grandfather No problems noted. Paternal Grandfather No problems noted. 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 Cognitive needs: No Hearing needs: No Vision needs: No Review of Systems Const Denies chills and Denies fever(s) Card Reports no additional complaints and Denies syncope Resp Denies cough GI Denies abdominal pain and Denies heartburn Reports as per HPI and Denies change in libido Neuro Denies syncope Psych Denies change in libido Endo Denies change in libido Physical Exam Const General: cooperative, healthy appearing, comfortable and no acute distress Orientation/consciousness: patient oriented x3 HEENT Face and sinus: Yes normal facial exam Mouth: moist mucous membranes Neck Neck: Yes normal visual inspection, Yes full ROM and Yes trachea midline Chest Chest palpation & inspection: normal inspection of the chest Resp Effort & Inspection: normal respiratory effort, able to speak in complete sentences and no respiratory distress GI Inspection: Yes normal to inspection Back/Spine/Pelvis Cervical Spine: normal cervical lordosis Thoracic/Lumbar Spine: thoracic and lumbar spine normal to inspection Skin General skin exam: no rashes or lesions noted Neuro General: patient oriented x3, gait normal, tone normal and moves all extremities Extrem General: Yes normal to inspection and Yes capillary refill normal Results AMB Urinalysis, Automated UA Leukoctes 0 Concepcion/uL Last Edit by Jackie Oseguera CMA on 12/25/23 14 :09 UA Nitrite Negative Last Edit by Jackie Oseguera CMA on 12/25/23 14: 09 UA Urobilinogen 0.2 mg/dL Last Edit by Jackie Oseguera CMA on 4 14:09 UA Protein 15 mg/dL Last Edit by Jackie Oseguera [facility] on 12/25/23 14:0 9 UA pH 5.5 [facility] on 12/25/23 14:09 UA Blood 0 Brian/uL Last Edit by Jackie Osegueradaniel Oseguera, [facility] on 12/25/23 14:09 UA Specific [place] 1.015 Last Edit by Jackie Osegueradaniel Oseguera [facility] on 14:09 UA Ketone Negative Last Edit by Jackie Osegueradaniel Oseguera [facility] on 12/25/23 14:0 9 UA Bilirubin 0 mg/dL Last Edit [facility] on 12/25/23 14: 09 UA Glucose 1000 mg/dL Last Edit by Jackie Oseguera [facility] on 12/25/23 14 :09 Results Reviewed Results Reviewed: Laboratory Last Values Urine pH (Auto) 5.5 12/25/23 14:02 Specific [place] (Auto) 1.015 12/25/23 14:02 Urine Protein (Auto) 15 mg/dL 12/25/23 14:02 Glucose (UA)(Auto) 1000 mg/dL 12/25/23 14:02 Urine Ketones (Auto) Negative 12/25/23 14:02 Urine Blood (Auto) 0 Brian/uL 12/25/23 14:02 Urine Nitrite (Auto) Negative 12/25/23 14:02 Urine Bilirubin (Auto) 0 mg/dL 12/25/23 14:02 Urine Urobilinogen (Auto) 0.2 mg/dL 12/25/23 14:02 Leukocyte Esterase (Auto) 0 Concepcion/uL 12/25/23 14:02 Assessment & Plan Assessment & Plan (1) Nephrolithiasis: Code(s): N20.0 - Calculus of kidney (2) Hydronephrosis: Code(s): N13.30 - Unspecified hydronephrosis Plan Nephrolithiasis follow-up Orders: Orders AMB Urinalysis Automated 12/25/23 R33.9 - Retention of urine, unspecified Patient Instructions: Imaging studies, laboratory and physical exam results were discussed and reviewed in detail. No major barriers to patient understanding were identified. An opportunity to ask questions regarding the treatment plan was provided. All questions were answered. The patient expressed understanding and agreement with the above treatment plan. The patient is aware they should contact our office by phone for worsening of their current condition or the appearance of new urologic symptoms. Compliance i s encouraged with any medications and followup testing that is ordered. It is a privilege to participate in the urologic care of your patient. If you have any questions or concerns regarding treatment for the above conditions, or other urologic issues, please do not hesitate to contact me. The office telephone contact is [phone]. This note is constructed using voice recognition software. While every effort has been made to ensure accuracy phone specialist errors may have been included. Yours sincerely, Dr Jono Loyola MD, [facility] - Urology Providers of Expert, Compassionate Care for the Genitourinary System Coding Level of Care Code Est Pt Level 4 (59750) Diagnoses Nephrolithiasis N20.0 Hydronephrosis N13.30
== END 2023-12-25 14:45 | disposition home or self-care (01) ==
PROVIDERS: PCP Internal Medicine; Visit Provider Urology
DX: N20.0 Calculus of kidney (principal); N13.30 Unspecified hydronephrosis
CPT/HCPCS: 99213

== ENCOUNTER → 2023-12-25 13:52 | Outpatient (BNVA) | payer BC, SELFPAY | PROVIDERS: Visit Provider Urology | DX: N20.0 Calculus of kidney (principal); R33.9 Retention of urine, unspecified | CPT/HCPCS: 81003 ==

== ENCOUNTER 2024-01-24 12:51 | Outpatient (AMB) | payer BC, SELFPAY ==
[2024-01-24 13:21] VITALS: BP 110/70; PULSE 72; TEMP 36.4; O2SAT 96; BMI 34.2
--- NOTE | 2024-01-24 13:21 | AM.OFFWIN_ITS ---
Intake Vital Signs 01/24/24 13:21 Height 5 ft 4 in Weight 199 lb BMI 34.2 BP 110/70 Blood Pressure Location Lt brachial Position Sitting Pulse 72 Pulse Source Pulse Oximeter Temp 97.6 F Temp Source Temporal Artery Scan Pulse Oximetry (%) 96 Oxygen Delivery Method Room Air Intake Visit Reasons: Possible [place] (lobby) Intake Note: pt is here today for pink eye started today Patient Tobacco Use Status: Former Tobacco user Quit Date: 30 yrs ago Allergies carbamazepine [From Tegretol] Allergy (Intermediate, Verified 01/24/24 13:25) RASH divalproex sodium [From Depakote] Allergy (Intermediate, Verified 01/24/24 13:25) RASH Iodinated Contrast Media [IV Dye, Iodine Containing] Allergy (Intermediate, Verified 01/24/24 13:25) HIVES Medication List - Last Reconciled 01/24/24 by KALLI Garcia alcohol swabs 1 pad topical QIDACHS blood sugar diagnostic (FreeStyle Lite Strips) Test four times a day or as directed. blood-glucose meter (FreeStyle Lite Meter kit) As Directed 4 times a day ergocalciferol (vitamin D2) (Vitamin D2) 1,250 mcg PO QWEEK erythromycin 1 appl ophthalmic (eye) TID 5 days Farxiga (dapagliflozin propanediol) 10 mg PO QAM 90 days NS ibuprofen 800 mg PO TID PRN 90 days insulin lispro (Humalog KwikPen (U-100) Insulin) 1 sliding scale dose subcut QIDACHS MDD 30 units lancets (FreeStyle Lancets) Test four times a day or as directed. metformin 500 mg PO BID 90 days metoprolol succinate ER 25 mg PO DAILY glxtlkfkla-htpfewnbm-xtxtsnfuf 40-5-25 mg 1 tab PO DAILY pantoprazole 40 mg PO DAILY pen needle, diabetic Use four times a day or as directed. sucralfate 1 tab PO DAILY Do you need a note to return to daycare/school/sports/work: No HPI HPI Comments History of Present Illness Details 63-year-old female presents today compla ining of injection and crusted discharge on her left eye. She states she has been baby-sitting her granddaughter [facility] Medical History Pure hypercholesterolemia Diabetes mellitus SVT (supraventricular tachycardia) (Unknown) Obesity (BMI 30-39.9) Vitamin D deficiency GERD (gastroesophageal reflux disease) Migraine Benign essential hypertension Surgical History History of colonoscopy (~05/28/19) History of ankle surgery S/P appendectomy S/P breast biopsy S/P cholecystectomy Family History Father Heart disease Hypertension Mother Heart disease Hypertension Diabetes mellitus Maternal Grandmother No problems noted. Maternal Grandfather No problems noted. Paternal Grandfather No problems noted. 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 Cognitive needs: No Hearing needs: No Vision needs: No Review of Systems Const All systems reviewed & are unremarkable except as noted in HPI and below Physical Exam Vital Signs: Last Vital Signs Temp 97.6 F 01/24/24 13:21 Pulse 72 01/24/24 13:21 BP 110/70 01/24/24 13:21 Pulse Ox 96 01/24/24 13:21 Oxygen Delivery Method Room Air 01/24/24 13:21 BMI result Body Mass Index 34.2 Const General: healthy appearing and no acute distress HEENT Head: Yes normal to inspection, Yes normocephalic and Yes atraumatic Ears: hearing grossly normal bilaterally and external ears normal General nose exam: Normal external nose present Eyes Conjunctivae: conjunctival abnormal left conjunctival injection and discharge Assessment & Plan Assessment & Plan (1) Conjunctivitis: Code(s): H10.9 - Unspecified conjunctivitis Plan: The patient will apply erythromycin ophthalmic ointment t.i.d. for the next 5 days. Use appropriate hygiene for the next 24 hours. Plan See plan Medications: New erythromycin 1 appl ophthalmic (eye) TID 3.5 grams 0RF 5 days Coding Level of Care Code Est Pt Level 3 (46904) Diagnoses Conjunctivitis H10.9
== END 2024-01-24 15:08 | disposition home or self-care (01) ==
PROVIDERS: PCP Internal Medicine; Visit Provider Physician Assistant Medical
DX: H10.9 Unspecified conjunctivitis (principal)
CPT/HCPCS: 99213

== ENCOUNTER 2024-02-13 07:50 | Outpatient (AMB) | payer BC, SELFPAY ==
[2024-02-13 08:00] VITALS: BP 122/80; BMI 34.0
--- NOTE | 2024-02-13 08:00 | MHC.OFFVIS ---
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 No complaints. Last Pap/HPV was negative in 02/03 Last Mammogram was BI-RADS 2 in 05/05 Last Colonoscopy was done in 01/03 the recommendation was to repeat in 7-10 years The patient is gives a questionable history of maternal ovarian cancer and her sister, the patient is unsure of to diagnose PFSH Medical History Pure hypercholesterolemia Diabetes mellitus SVT (supraventricular tachycardia) (Unknown) Obesity (BMI 30-39.9) Vitamin D deficiency GERD (gastroesophageal reflux disease) Migraine Benign essential hypertension Surgical History History of colonoscopy (~05/28/19) History of ankle surgery S/P appendectomy S/P breast biopsy S/P cholecystectomy Family History Father Heart disease Hypertension Mother Heart disease Hypertension Diabetes mellitus Maternal Grandmother No problems noted. Maternal Grandfather No problems noted. Paternal Grandfather No problems noted. 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 Cognitive needs: No Hearing needs: No Vision needs: No Female Reproductive History Menstrual Date of last pap smear: 02/07/23 (neg pap and hpv) Date of Mammogram: 05/13/23 Review of Systems Const All systems reviewed & are unremarkable except as noted in HPI and below Card Reports as per HPI Resp Reports as per HPI GI Reports as per HPI and Reports no additional complaints Reports as per HPI Physical Exam Vital Signs: BMI result Body Mass Index 34.0 Const General: cooperative, healthy appearing and comfortable Chest Chest palpation & inspection: normal inspection of the chest and normal palpation of entire chest wall Breast/axilla inspection: normal inspection of the breasts and normal inspection of the axillae Breast/axilla palpation: normal palpation of the breasts, normal palpation of the axillae and no axillary lymphadenopathy Resp Effort & Inspection: normal respiratory effort Auscultation: clear to auscultation bilaterally Percussion: percussion normal Cardio Palpation: normal PMI Rate: regular rate Rhythm: regular rhythm Heart sounds: no murmurs and no rubs Peripheral pulses: Peripheral pulses 2+ throughout GI Inspection: Yes normal to inspection Palpation (GI): Soft to palpation, nontender, no guarding, not rigid and No hepatosplenomegaly present Percussion: Yes normal to percussion Auscultation: normal bowel sounds Rectal Exam - Female: deferred General: Yes bladder normal to palpation External Female Exam: No lesion Speculum Exam - Vagina: normal appearance of the vagina, normal palpation, normal vaginal discharge and not erythematous Speculum Exam - Cervix: normal appearance of the cervix and normal palpation Bimanual exam- vagina & uterus: normal bimanual exam, normal palpation, uterine size normal, bladder normal to palpation, consistency normal and normal palpation Bimanual Exam- Adnexa, other: normal adnexae, no masses and no tenderness Assessment & Plan Assessment & Plan (1) Well woman exam: Code(s): Z01.419 - Encounter for gynecological examination (general) (routine) without abnormal findings Category: Medical Plan: Co testing not indicated this. Counseled the patient about the recommended dietary allowance of 1200 mg of Calcium & 600 IU of vitamin D. Mammogram ordered for 05/06. The patient was instructed to perform monthly self-breast exams and schedule annual exam in a year. All questions answered and the patient verbalized understanding. (2) Family history of ovarian cancer: Code(s): Z80.41 - Family history of malignant neoplasm of ovary Category: Medical Plan: Although the family history of ovarian cancer with the patient'smother and sister is questionable , will refer to [facility] cancer genetic cancer counseling for possible genetic screening for hereditary cancer syndrome. Explained to the patient that If any of the genetic testing is positive, she might be a candidate for specific risk reduction interventions including bilateral salpingo-oophorectomy to reduce the risk. All questions answered, the patient verbalized understanding Orders: Orders MM tomosynthesis screening BI 05/13/24 Z12.31 - Encounter for screening mammogram for malignant neoplasm of breast Referrals Genetics Referral Z80.41 - Family history of malignant neoplasm of ovary Coding Level of Care Code Est Pt Prev Care 40-64y(10316) Diagnoses Well woman exam Z01.419 Family history of ovarian cancer Z80.41
== END 2024-02-13 08:46 | disposition home or self-care (01) ==
PROVIDERS: PCP Internal Medicine; Visit Provider Obstetrics & Gynecology
DX: Z01.419 Encounter for gynecological examination (general) (routine) without abnormal findings (principal); Z80.41 Family history of malignant neoplasm of ovary
CPT/HCPCS: 99396

== ENCOUNTER → 2024-02-13 07:50 | Outpatient (BNVA) | payer BC, SELFPAY | PROVIDERS: Visit Provider Obstetrics & Gynecology ==

== ENCOUNTER 2024-03-16 08:32 | Outpatient (REF) | payer BC, SELFPAY ==
[2024-03-16 10:19] LABS: MANUAL DIFF FLAG NO
[2024-03-16 10:24] LABS: Appearance Urine Clear; Color Urine Yellow; Glucose Urine UA Negative (Negative); Leukocyte Esterase Urine Negative (Negative); Nitrite Urine Negative (Negative); PH 5.5 (5.0-9.0); Specific Gravity - Urine 1.025 (1.005-1.025); UMIC TRIGGER UACC YES; Urine Blood Negative (Negative); Urine Ketones Negative (Negative); Urine Protein 30 (1+) mg/dL (Neg-Trace)
[2024-03-16 10:30] LABS: Bacteria Urine None Seen (None Seen); Hyaline Casts Urine 0-2 /LPF (0-2); RBC Urine 0-2 /HPF (0-2); WBC Urine 0-5 /HPF (0-5)
[2024-03-16 10:40] LABS: Basophils Percent Auto 0.2 % (0-2); Eosinophils Absolute Auto 0.2 X10*3/uL (0.0-0.4); Eosinophils Percent Auto 2.4 % (0-4); Hematocrit 38.9 % (37.0-47.0); Hemoglobin 12.6 g/dl (12.0-16.0); Imm Gran Abs Auto 0.02 X10*3/uL (0.00-0.03); Imm Gran Pct Auto 0.2 % (0.0-0.4); Lymphocytes Absolute Auto 2.7 X10*3/uL (1.2-4.9); Mean Corpuscular HGB Conc 32.4 g/dl (31.0-35.0); Mean Corpuscular Volume 89.4 fL (80.0-98.0); Monocytes Absolute Auto 0.5 X10*3/uL (0.1-1.2); Monocytes Percent Auto 6.7 % (2-11); Neutrophils Absolute Auto 4.5 x10*3/uL (2.0-8.3); Neutrophils Percent Auto 56.5 % (45-73); Platelet Count 286 X10*3/uL (160-400); Red Blood Count 4.35 X10*6/uL (4.20-5.50); Red Cell Distribution Width 13.5 % (11.0-16.0)
[2024-03-16 11:00] LABS: Creatinine Urine 182.94 mg/dL; Microalbum/Creatinine Ratio Ur 51.3 ug/mg cr (<30)
[2024-03-16 11:03] LABS: Estimated Average Glucose 123 mg/dL; Hemoglobin A1c % 5.9 % (<6.0)
[2024-03-16 11:25] LABS: Alanine Aminotransferase 46 U/L (0-31); Albumin Level 4.4 g/dL (3.5-5.0); Alkaline Phosphatase 77 U/L (39-117); Anion Gap 13 (12-20); Aspartate Amino Transferase 28 U/L (5-31); Bilirubin Total 0.3 mg/dL (0.0-1.0); Blood Urea Nitrogen 19 mg/dL (9-16); Calcium 10.2 mg/dL (8.4-10.2); Carbon Dioxide 27 mmol/L (22-29); Chloride 104 mmol/L (96-108); Cholesterol 158 mg/dL (<200); Estimated Glomerular Filt Rate > 60; Glucose Fasting 117 mg/dL (60-99); HDL Cholesterol 55 mg/dL (>40); LDL Cholesterol Calculated 83 mg/dL (<100); Potassium 4.1 mmol/L (3.3-5.1); Sodium 140 mmol/L (135-145); Total Protein 7.8 g/dL (6.5-8.0); Triglycerides 101 mg/dL (<150)
[2024-03-16 11:29] LABS: TSH reflex Free T4 0.92 uIU/mL (0.32-4.0); Vitamin D 25-OH Total 56.2 ng/mL (>30)
== END 2024-03-16 08:33 | disposition home or self-care (01) ==
LOC: HO.HMGCLDS 08:32
PROVIDERS: PCP Internal Medicine; Visit Provider Internal Medicine
DX: I10 Essential (primary) hypertension (principal); E78.00 Pure hypercholesterolemia, unspecified; E11.9 Type 2 diabetes mellitus without complications; E55.9 Vitamin D deficiency, unspecified
CPT/HCPCS: 36415; 80053; 80061; 81001; 82043; 82306; 82570; 83036; 84443; 85025

== ENCOUNTER 2024-03-26 09:41 | Outpatient (AMB) | payer BC, SELFPAY ==
[2024-03-26 09:43] VITALS: BP 122/74; PULSE 75; O2SAT 97; BMI 33.8
--- NOTE | 2024-03-26 09:43 | A.OFFPC_ITS ---
Vital Signs 03/26/24 09:43 Height 5 ft 4 in Weight 197 lb BMI 33.8 BP 122/74 Blood Pressure Location Lt brachial Position Sitting Pulse 75 Pulse Source Pulse Oximeter Pulse Oximetry (%) 97 Oxygen Delivery Method Room Air Intake Visit Reasons: 4 month f/u HTN, DM, GERD Intake Note: Patient here for a 4 month follow up HTN, DM, GERD Caretaker Required: No Accompanied by: Spouse Allergies carbamazepine [From Tegretol] Allergy (Intermediate, Verified 03/26/24 10:12) RASH divalproex sodium [From Depakote] Allergy (Intermediate, Verified 03/26/24 10:12) RASH Iodinated Contrast Media [IV Dye, Iodine Containing] Allergy (Intermediate, Verified 03/26/24 10:12) HIVES dapagliflozin [From Farxiga] Adverse Reaction (Severe, Verified 03/26/24 10:12) loss of bladder control Medication List - Last Reconciled 03/26/24 by Portillo Guy MD alcohol swabs 1 pad topical QIDACHS blood sugar diagnostic (FreeStyle Lite Strips) Test four times a day or as directed. blood-glucose meter (FreeStyle Lite Meter kit) As Directed 4 times a day ergocalciferol (vitamin D2) (Vitamin D2) 1,250 mcg PO QWEEK ibuprofen 800 mg PO TID PRN 90 days insulin lispro (Humalog KwikPen (U-100) Insulin) 1 sliding scale dose subcut QIDACHS MDD 30 units lancets (FreeStyle Lancets) Test four times a day or as directed. metformin 500 mg PO BID 90 days metoprolol succinate ER 25 mg PO DAILY lvnjvzspss-hhttxlirc-osdyqjewv 40-5-25 mg 1 tab PO DAILY pantoprazole 40 mg PO DAILY pen needle, diabetic Use four times a day or as directed. sucralfate 1 tab PO DAILY Tobacco use date assessed: 11/21/23 Dental Screening Dental Screen Date: 03/26/24 Did you have a dental visit in the last 12 months?: No Did you have a dental problem in the last 6 months where you did not have access to dental care?: No Was dental information given to patient?: No HPI 4 month f/u HTN, DM, GERD HPI Details Patient comes in today for her follow up visit States that she had to stop taking Farxiga recently as she was experiencing recurrent bouts of urinary incontinence while she was on the Rx States that her urologic exam came back okay and was advised by urology recently to stop taking her Farxiga and discuss this further with her PCP at her next appointment States that her urinary symptoms cleared up gradually after she quit taking her Farxiga States that she feels okay otherwise She denies any headaches or dizziness Denies any chest pains, no SOB No nausea/vomiting, no abdominal pain No change in bowel habits noted She had her follow up labs done about 10 days ago - to discuss her results [facility] Medical History Pure hypercholesterolemia Diabetes mellitus SVT (supraventricular tachycardia) (Unknown) Obesity (BMI 30-39.9) Vitamin D deficiency GERD (gastroesophageal reflux disease) Migraine Benign essential hypertension Surgical History History of colonoscopy (~05/28/19) History of ankle surgery S/P appendectomy S/P breast biopsy S/P cholecystectomy Family History Father Heart disease Hypertension Mother Heart disease Hypertension Diabetes mellitus Maternal Grandmother No problems noted. Maternal Grandfather No problems noted. Paternal Grandfather No problems noted. 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 David Briones, Nury Britton, Shabbir Knox and colleagues, with an educational jean claude from [employer]. Review of Systems Const Denies chills, Denies fatigue, Denies fever(s) and Denies headache(s) ENT Denies dysphagia, Denies dizziness, Denies otalgia, Denies headache(s), Denies neck pain, Denies odynophagia and Denies sore throat Card Denies chest pain, Denies rapid heart rate, Denies palpitations and Denies dyspnea Resp Denies cough, Denies dyspnea and Denies wheezing GI Denies abdominal pain, Denies constipation, Denies dysphagia, Denies heartburn, Denies diarrhea, Denies nausea, Denies odynophagia and Denies vomiting Denies urinary frequency, Denies dysuria and Denies urinary urgency Musc Denies back pain, Denies arthralgias and Denies neck pain Skin/Breast Denies rash Neuro Denies dizziness, Denies headache(s) and Denies paresthesias Psych Denies anxiety and Denies depression Endo Denies fatigue and Denies palpitations Hunter/Lymph Denies easy bruising Aller/Immun Denies wheezing Physical exam (Primary Care) Vital Signs: Last Vital Signs Pulse 75 03/26/24 09:43 BP 122/74 03/26/24 09:43 Pulse Ox 97 03/26/24 09:43 Oxygen Delivery Method Room Air 03/26/24 09:43 BMI result Body Mass Index 33.8 Tobacco/Smoking Status: Tobacco use Status Tobacco use date assessed 11/21/23 03/26/24 09:48 Patient Tobacco Use Status Former Tobacco user 03/26/24 09:48 e-Cigarette/Vaping Use Never Used 03/26/24 09:48 Thrive Assessment: Date of Thrive Assessment Date Thrive assessed 11/21/23 03/26/24 09:48 Const General: no acute distress and alert HENMT Ears: TM's normal bilaterally and EAC's normal Throat: Yes posterior oropharynx normal and Yes tonsils normal (no TP con gestion) Neck Neck: Yes no lymphadenopathy and Yes supple Thyroid: Thyroid normal Resp Auscultation: clear to auscultation bilaterally, no rales and no wheezes Cardio Rate: regular rate Rhythm: regular rhythm Heart sounds: no murmurs GI Palpation (GI): Soft to palpation and nontender Auscultation: normal bowel sounds General: Yes no CVA tenderness Back/Spine/Pelvis Back: no CVA tenderness Thoracic/Lumbar Spine: No lumbar spinal tenderness Skin Rashes: no rashes Extrem General: Yes no clubbing, cyanosis or edema Results Reviewed Results Reviewed: Laboratory Tests 03/16/24 08:36 WBC 8.0 Hgb 12.6 Hct 38.9 Plt Count 286 Sodium 140 Potassium 4.1 Creatinine 0.78 Estimated GFR > 60 Fasting Glucose 117 H Hemoglobin A1c % 5.9 Calcium 10.2 AST 28 ALT 46 H Triglycerides 101 Cholesterol 158 LDL Cholesterol, Calc 83 HDL Cholesterol 55 25-OH Vitamin D Total 56.2 TSH 0.92 Urine pH 5.5 Ur Specific [place] 1.025 Urine Protein 30 (1+) H Urine Glucose (UA) Negative Urine Blood Negative Urine Nitrite Negative Ur Leukocyte Esterase Negative Microalb/Creat Ratio 51.3 H Assessment and Plan Assessment & Plan (1) Diabetes mellitus: Code(s): E11.9 - Type 2 diabetes mellitus without complications Qualifiers: Diabetes mellitus type: type 2 Diabetes mellitus intermediate insulin use: with computer terminal operator use Diabetes mellitus complication status: without complication Qualified Code(s): E11.9 - Type 2 diabetes mellitus without complications; Z79.4 - long term care social worker (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 of insulin Plan: Her HgbA1c remains unchanged at 5.9% on her labs done a couple of weeks ago (was also at 5.9% back in August 2023) - goal is ideally <6.5% Reinforced diabetic diet Continue Metformin 500 mg BID; she could not tolerate Farxiga 10 mg QD as she was experiencing recurrent bouts of urinary incontinence when she was on the Rx and she stopped taking it a few weeks ago at the suggestion of urology States that her urinary symptoms have all cleared up since Will have her continue on Metformin monotherapy for now and advised her to continue working on diet modification and on her weight and if her numbers get worse or do not improve significantly over the next few months, then we will have to look for other additional alternatives to her Rx Farxiga is discontinued from her file today Will recheck her labs in 4 months for follow up (2) Benign essential hypertension: Code(s): I10 - Essential (primary) hypertension Plan: Reinforced low sodium diet - goal is systolic BP of at least 120 to 130 mm or less Continue Jpvygnqnlw-Qfhdfrwtnt-FPBH 40-5-25 mg QD and Metoprolol ER 25 mg QD (3) Palpitations: Comment: Dx with SVT, 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 Code(s): R00.2 - Palpitations Plan: She has been seen and followed by cardiology in the past for this issue although she has not been back to see them in over 3 years - was supposedly advised at her last appointment with them that she can just see them on an as-needed basis Echocardiogram done in 2017 showed normal LVEF, normal wall motion with no significant valvular abnormality; 30-day LUAN showed only sinus rhythm with no evidence of arrhythmias She was treated empirically with Metoprolol ER, which she states has kept her arrhythmias and palpitations mostly under control with only occasional episodes felt since Continue Metoprolol ER 25 mg QD (4) Migraine: Code(s): G43.909 - Migraine, unspecified, not intractable, without status migrainosus Qualifiers: Migraine type: unspecified Status migrainosus presence: without status migrainosus Intractability: not intractable Qualified Code(s): G43.909 - Migraine, unspecified, not intractable, without status migrainosus Plan: Stable; continue Ibuprofen 800 mg PRN Reinforced avoidance of migraine triggers (5) GERD (gastroesophageal reflux disease): Code(s): K21.9 - Gastro-esophageal reflux disease without esophagitis Qualifiers: Esophagitis presence: without esophagitis Qualified Code(s): K21.9 - Gastro-esophageal reflux disease without esophagitis Plan: Dietary restrictions reinforced Continue Pantoprazole 40 mg QD (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 Plan: Primarily due to postcholecystectomy Continue Carafate 1 gm QD Patient is again reminded to avoid eating a lot fried, greasy or oily foods to minimize her symptoms and she appears to be doing well so far with regards to her GI symptoms (7) Vitamin D deficiency: Code(s): E55.9 - Vitamin D deficiency, unspecified Plan: Continue Vitamin D2 41526 units once a week (8) Ureterolithiasis: Code(s): N20.1 - Calculus of ureter Plan: (+) 7 mm calculus at the left UVJ with hydronephrosis seen on CT a few months ago S/P cystoscopy, stone basketing from left ureteral orifice and left stent placement Patient states that she has not had any flare ups of her urinary tract symptoms or issues with kidney stones since Her recent renal US showed only a 2 mm non-obstructing right renal calculus with no other abnormalities seen Follow up with urology as scheduled (9) Obesity (BMI 30-39.9): Code(s): E66.9 - Obesity, unspecified Plan: Reinforced diet/exercise as tolerated/lose weight Plan Follow up in 4 months Orders: Orders Lipid Panel 4 Months E78.00 - Pure hypercholesterolemia, unspecified TSH reflex Free T4 4 Months E78.00 - Pure hypercholesterolemia, unspecified UA CC w/rflx Micro + Cult 4 Months R30.0 - Dysuria Hemoglobin A1c 4 Months E11.9 - Type 2 diabetes mellitus without complications Complete Blood Count Auto Diff 4 Months D64.9 - Anemia, unspecified Comprehensive [place]. Panel Fast 4 Months E78.00 - Pure hypercholesterolemia, unspecified Vitamin D 25-OH Total 4 Months E55.9 - Vitamin D deficiency, unspecified Coding Level of Care Code Est Pt Level 4 (54571) Complex EM visit Add On G2211 Diagnoses Type 2 diabetes mellitus without complication, with long-term current use of insulin E11.9; Z79.4 Diabetes mellitus type: type 2 Diabetes mellitus intermediate insulin use: with intermediate use Diabetes mellitus complication status: without complication Benign essential hypertension I10 Palpitations R00.2 Migraine without status migrainosus, not intractable, unspecified migraine type G43.909 Migraine type: unspecified Status migrainosus presence: without status migrainosus Intractability: not intractable Gastroesophageal reflux disease without esophagitis K21.9 Esophagitis presence: without esophagitis Bile salt-induced diarrhea K90.89 Vitamin D deficiency E55.9 Ureterolithiasis N20.1 Obesity (BMI 30-39.9) E66.9
== END 2024-03-26 10:27 | disposition home or self-care (01) ==
PROVIDERS: PCP Internal Medicine; Visit Provider Internal Medicine
DX: E11.9 Type 2 diabetes mellitus without complications (principal); Z79.4 Long term (current) use of insulin; E66.9 Obesity, unspecified; Z68.33 Body mass index [BMI] 33.0-33.9, adult; I10 Essential (primary) hypertension; R00.2 Palpitations; G43.909 Migraine, unspecified, not intractable, without status migrainosus; K21.9 Gastro-esophageal reflux disease without esophagitis; K90.89 Other intestinal malabsorption; E55.9 Vitamin D deficiency, unspecified; N20.1 Calculus of ureter
CPT/HCPCS: 99214

== ENCOUNTER 2024-05-18 07:18 | Outpatient (REF) | payer BC, SELFPAY ==
--- NOTE | ~2024-05-18 | MM_ITS ---
EXAMINATION: MM SCREENING DIGITAL BREAST TOMOSYNTHESIS, BILATERAL CLINICAL INFORMATION: Screening. Asymptomatic. COMPARISON: Mammography: This study is compared with prior exams dating back to . TECHNIQUE: Digital breast tomosynthesis is performed in both the craniocaudal and mediolateral oblique views along with computer-aided detection (CAD). Synthesized 2D images are generated from the tomosynthesis. FINDINGS: The breasts are heterogeneously dense, which may obscure small masses (ACR BI-RADS breast composition Category c). There are no significant masses, abnormal calcifications, or other abnormalities. MM/MM tomosynthesis screening BI IMPRESSION: No mammographic evidence of malignancy. ASSESSMENT: BI-RADS BI-RADS 1 - Negative RECOMMENDATION: Routine annual mammography screening. 1 year F/U This examination should not preclude the clinical evaluation of a suspicious palpable abnormality. This patient's information was entered into a reminder system with a target due date for their next mammogram. Electronically signed by: Charley Fisher MD 06/16/2024 07:51 AM EDT
== END 2024-05-18 07:19 | disposition home or self-care (01) ==
LOC: HO.MAMMO 07:18
PROVIDERS: PCP Internal Medicine; Referring Provider Obstetrics & Gynecology; Visit Provider Internal Medicine
DX: Z12.31 Encounter for screening mammogram for malignant neoplasm of breast (principal)
CPT/HCPCS: 77063; 77067

== ENCOUNTER → 2024-05-18 07:30 | Outpatient (BNV) | payer BC, SELFPAY | PROVIDERS: PCP Internal Medicine; Referring Provider Obstetrics & Gynecology; Visit Provider Radiology Diagnostic Radiology | DX: Z12.31 Encounter for screening mammogram for malignant neoplasm of breast (principal) | CPT/HCPCS: 77063; 77067 ==

== ENCOUNTER 2024-06-05 08:19 | Outpatient (REF) | payer BC, SELFPAY ==
--- NOTE | ~2024-06-05 | US_ITS ---
EXAMINATION: US RETROPERITONEAL COMPLETE (RENAL) CLINICAL INFORMATION: Kidney stones. COMPARISON: 11/14/2023, 11/08/2022. TECHNIQUE: Real-time imaging of the kidneys and bladder. Limited visualization due to bowel gas. FINDINGS: RIGHT KIDNEY: 11.1 x 5.2 x 7.1 cm (SAG x AP x TRV). Mild fullness right renal collecting system. No renal calculi. Renal cortical thickness is normal. Limited visualization. LEFT KIDNEY: 11.8 x 6.1 x 5.6 cm (SAG x AP x TRV). No hydronephrosis. No renal calculi. Renal cortical thickness is normal. Limited visualization. US/US renal BI IMPRESSION: Mild fullness right renal collecting system. No renal calculi. Electronically signed by: Bridget Moses MD 06/17/2024 06:01 AM EDT
== END 2024-06-05 08:20 | disposition home or self-care (01) ==
LOC: HO.HMGCX 08:19
PROVIDERS: PCP Internal Medicine; Visit Provider Urology
DX: N20.0 Calculus of kidney (principal)
CPT/HCPCS: 76775

== ENCOUNTER 2024-06-25 11:23 | Outpatient (AMB) | payer BC, SELFPAY ==
--- NOTE | 2024-06-25 11:24 | MHC.OFFVIS ---
Intake Visit Reasons: 6m/US(set) Intake Note: Patient is Present for Telephone Follow Up Ultrasound Urology Med: None Antibiotic Allergy: None Blood Thinner:None Patient states no issues or concerns has not had any discomfort or pain in flank areas Fishing Accessories Maker Required: No Accompanied by: Self / Same As Patient Allergies carbamazepine [From Tegretol] Allergy (Intermediate, Verified 03/26/24 10:12) RASH divalproex sodium [From Depakote] Allergy (Intermediate, Verified 03/26/24 10:12) RASH Iodinated Contrast Media [IV Dye, Iodine Containing] Allergy (Intermediate, Verified 03/26/24 10:12) HIVES dapagliflozin [From Farxiga] Adverse Reaction (Severe, Verified 03/26/24 10:12) loss of bladder control HPI Comments Details: Monique is a pleasant female. She is a patient Dr. Guy. She is seen for the following urologic conditions - nephrolithiasis Telemedicine Evaluation 15 min Consultation [employer]re Video Has been on metformin Six-month follow-up Imaging stable Move to yearly review Encourage fluids Continue vitamin B6 Lemon water Nephrolithiasis Left distal ureteric stone - with intervention 03/04 Prior stone passage without intervention Stone analysis - 03/04 calcium oxalate dihydrate 80% Imaging - 03/04 distal left ureteric stone with hydroureteronephrosis - 05/04 renal ultrasound question 4 mm right - 11/05 renal ultrasound no evidence of stones - 12/07 renal ultrasound possible small stone 2 mm right, nothing left 24 hour urine - 05/04 borderline oxalate, and good volume, low calcium, moderate salt - dietary advice provided Therapeutic plan - 12 month follow-up imaging [facility] Medical History Pure hypercholesterolemia Diabetes mellitus SVT (supraventricular tachycardia) (Unknown) Obesity (BMI 30-39.9) Vitamin D deficiency GERD (gastroesophageal reflux disease) Migraine Benign essential hypertension Surgical History History of colonoscopy (~05/28/19) History of ankle surgery S/P appendectomy S/P breast biopsy S/P cholecystectomy Family History Father Heart disease Hypertension Mother Heart disease Hypertension Diabetes mellitus Maternal Grandmother No problems noted. Maternal Grandfather No problems noted. Paternal Grandfather No problems noted. 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 Cognitive needs: No Hearing needs: No Vision needs: No Review of Systems Const All systems reviewed & are unremarkable except as noted in HPI and below Reports no additional complaints Resp Reports no additional complaints GI Reports no additional complaints Reports as per HPI Musc Reports no additional complaints Physical Exam Telemedicine evaluation Appropriate responses Regular breathing rate and rhythm HEENT Head: Yes normal to inspection Ears: hearing grossly normal bilaterally Eyes General: appearance normal, both eyes and all related structures Neck Neck: Yes normal visual inspection Chest Chest palpation & inspection: normal inspection of the chest Resp Effort & Inspection: normal respiratory effort and able to speak in complete sentences Telehealth Telehealth Location of provider rendering services: practice address Location of patient: address on file Patient Identification confirmed using: Name, : Yes Telehealth method: video Patient verbally consented to treatment: Yes Patient verbally consented to billing insurance company: Yes Patient informed of any privacy concerns related to visit: Yes Assessment & Plan Assessment & Plan (1) Nephrolithiasis: Code(s): N20.0 - Calculus of kidney Category: Medical Plan 12 month follow-up nurse-practitioner office Orders: Orders US renal BI 12 Months N20.0 - Calculus of kidney Patient Instructions: Imaging studies, laboratory and physical exam results were discussed and reviewed in detail. No major barriers to patient understanding were identified. An opportunity to ask questions regarding the treatment plan was provided. All questions were answered. The patient expressed understanding and agreement with the above treatment plan. The patient is aware they should contact our office by phone for worsening of their current condition or the appearance of new urologic symptoms. Compliance is encouraged with any medications and followup testing that is ordered. It is a privilege to participate in the urologic care of your patient. If you have any questions or concerns regarding treatment for the above conditions, or other urologic issues, please do not hesitate to contact me. The office telephone contact is [phone]. This note is constructed using voice recognition software. While every effort has been made to ensure accuracy bullet assembly press operator errors may have been included. Yours sincerely, Dr Jono Loyola MD, [facility] - Urology Providers of Expert, Compassionate Care for the Genitourinary System Coding Level of Care Code Tele Est Pt Level 3 (29493) Diagnoses Nephrolithiasis N20.0
== END 2024-06-25 12:12 | disposition home or self-care (01) ==
LOC: HO.HUSH 11:23
PROVIDERS: PCP Internal Medicine; Visit Provider Urology
DX: N20.0 Calculus of kidney (principal)
CPT/HCPCS: 99213

== ENCOUNTER → 2024-06-25 11:23 | Outpatient (BNVA) | payer BC, SELFPAY | PROVIDERS: PCP Internal Medicine; Visit Provider Urology ==

== ENCOUNTER 2024-07-28 09:22 | Outpatient (AMB) | payer BC, SELFPAY ==
[2024-07-28 09:24] VITALS: BP 116/78; PULSE 76; O2SAT 98; BMI 34.2
--- NOTE | 2024-07-28 09:24 | A.OFFPC_ITS ---
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 Accompanied by: Self / Same As Patient Allergies carbamazepine [From Tegretol] Allergy (Intermediate, Verified 07/28/24 09:48) RASH divalproex sodium [From Depakote] Allergy (Intermediate, Verified 07/28/24 09:48) RASH Iodinated Contrast Media [IV Dye, Iodine Containing] Allergy (Intermediate, Verified 07/28/24 09:48) HIVES dapagliflozin [From Farxiga] Adverse Reaction (Severe, Verified 07/28/24 09:48) loss of bladder control Medication List - Last Reconciled 07/28/24 by Portillo Guy MD alcohol swabs 1 pad topical QIDACHS blood sugar diagnostic (FreeStyle Lite Strips) Test four times a day or as directed. blood-glucose meter (FreeStyle Lite Meter kit) As Directed 4 times a day ergocalciferol (vitamin D2) (Vitamin D2) 1,250 mcg PO QWEEK ibuprofen 800 mg PO TID PRN 90 days insulin lispro (Humalog KwikPen (U-100) Insulin) 1 sliding scale dose subcut QIDACHS MDD 30 units lancets (FreeStyle Lancets) Test four times a day or as directed. metformin 500 mg PO BID 90 days metoprolol succinate ER 25 mg PO DAILY lricuzldtw-yogvasezh-nrvzoimrx 40-5-25 mg 1 tab PO DAILY pantoprazole 40 mg PO DAILY pen needle, diabetic Use four times a day or as directed. sucralfate 1 g PO DAILY Tobacco use date assessed: 07/28/24 Dental Screening Dental Screen Date: 07/28/24 Did you have a dental visit in the last 12 months?: No Did you have a dental problem in the last 6 months where you did not have access to dental care?: No Was dental information given to patient?: No HPI 4mth f/u HPI Details Patient comes in today for her follow up visit States that she feels okay She denies any headaches or dizziness Denies any chest pains, no SOB No nausea/vomiting, no abdominal pain No change in bowel habits noted She was not able to tolerate Farxiga due to increased urinary symptoms and loss of bladder control while she was on the Rx Is currently just on Metformin for her diabetes and she appears to be doing well on Metformin monotherapy She was also not able to get her follow up labs done prior to her appointment today She would also like to get her flu shot today PFSH Medical History Pure hypercholesterolemia Diabetes mellitus SVT (supraventricular tachycardia) (Unknown) Obesity (BMI 30-39.9) Vitamin D deficiency GERD (gastroesophageal reflux disease) Migraine Benign essential hypertension Surgical History History of colonoscopy (~05/28/19) History of ankle surgery S/P appendectomy S/P breast biopsy S/P cholecystectomy Family History Father Heart disease Hypertension Mother Heart disease Hypertension Diabetes mellitus Maternal Grandmother No problems noted. Maternal Grandfather No problems noted. Paternal Grandfather No problems noted. 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 1. Little interest or pleasure in doing things: not at all 2. Feeling down, depressed, or hopeless: not at all 3. Trouble falling or staying asleep, or sleeping too much: not at all 4. Feeling tired or having little energy: not at all 5. Poor appetite or overeating: not at all 6. Feeling bad about yourself - or that you are a failure or have let yourself or your family down: not at all 7. Trouble concentrating on things, such as reading the newspaper or watching television: not at all 8. Moving or speaking so slowly that other people could have noticed. Or the opposite - being so fidgety or restless that you have been moving around a lot more than usual: not at all 9. Thoughts that you would be better off or of hurting yourself in some way: not at all Total score: 0 Depression Screening Interpretation: Negative Depression Screening Done: Yes 99181 - PHQ-9 Billing: Yes Source: Developed by Drs. David Briones, Nury Britton, Shabbir Knox and colleagues, with an educational jean claude from [employer]. Thrive Questionnaire Date Thrive assessed: 07/28/24 I am a: Patient What is your living situation today?: I have a steady place to live Within the past 12 months, did the food you bought not last and you didn't have the money to get more?: Never true Within the past 12 months, did you worry whether your food would run out before you got money to buy more?: Never true Do you have trouble paying for medicines?: No Do you have trouble getting transportation to medical appointments?: No Do you have trouble paying your heating and electricity bill?: No Do you have trouble taking care of your child, family member or friend?: No Do you have trouble with day-to-day activities such as bathing, preparing meals, shopping, managing finances, etc.?: No Are you currently unemployed and looking for a job?: No Are you interested in more education?: No Please select the resources that you would like help with: None Currently or been in a relationship where the following occur: No concerns reported THRIVE Score: 0 AUDIT C Alcohol Use Questionnaire (AUDIT-C) 1. How often do you have a drink containing alcohol?: Monthly or less 2. How many drinks containing alcohol do you have on a typical day when you are drinking?: 1 or 2 3. How often do you have six or more drinks on one occasion?: Never Total Score: 1 Score Reviewed/Action Taken: Yes RAMON-7 AMB Questionnaire RAMON-7 Date RAMON - 7 assessed: 07/28/24 Feeling nervous, anxious, or on edge: 0 = Not at all Not being able to stop or control worryin = Not at all Worrying too much about different things: 0 = Not at all Trouble relaxin = Not at all Being so restless that it is hard to sit still: 0 = Not at all Becoming easily annoyed or irritable: 0 = Not at all Feeling afraid as if something awful might happen: 0 = Not at all Total RAMON-7 score (0-4 normal; 5-9 mild; 10-14 moderate; 15-21 severe): 0 Source: Developed by Drs. David Briones, Nury Britton, Shabbir Knox and colleagues, with an educational jean claude from [employer]. Review of Systems Const Denies chills, Denies fatigue, Denies fever(s) and Denies headache(s) ENT Denies dysphagia, Denies dizziness, Denies otalgia, Denies headache(s), Denies neck pain, Denies odynophagia and Denies sore throat Card Denies chest pain, Denies rapid heart rate, Denies palpitations and Denies dyspnea Resp Denies cough, Denies dyspnea and Denies wheezing GI Denies abdominal pain, Denies constipation, Denies dysphagia, Denies heartburn, Denies diarrhea, Denies nausea, Denies odynophagia and Denies vomiting Denies urinary frequency, Denies dysuria and Denies urinary urgency Musc Denies back pain, Denies arthralgias and Denies neck pain Skin/Breast Denies rash Neuro Denies dizziness, Denies headache(s) and Denies paresthesias Psych Denies anxiety and Denies depression Endo Denies fatigue and Denies palpitations Hunter/Lymph Denies easy bruising Aller/Immun Denies wheezing Physical exam (Primary Care) Vital Signs: Last Vital Signs Pulse 76 07/28/24 09:24 BP 116/78 07/28/24 09:24 Pulse Ox 98 07/28/24 09:24 Oxygen Delivery Method Room Air 07/28/24 09:24 BMI result Body Mass Index 34.2 Tobacco/Smoking Status: Tobacco use Status Tobacco use date assessed 07/28/24 07/28/24 09:31 Patient Tobacco Use Status Former Tobacco user 07/28/24 09:31 e-Cigarette/Vaping Use Never Used 07/28/24 09:31 PHQ-9: PHQ-9 Score PHQ-9: Total score 0 07/28/24 09:35 Depression Screening Interpretation: Negative Thrive Assessment: Date of Thrive Assessment Date Thrive assessed 07/28/24 07/28/24 09:31 Currently or been in a relationship where the following occur: No concerns reported Const General: no acute distress and alert HENMT Ears: TM's normal bilaterally and EAC's normal Throat: Yes posterior oropharynx normal and Yes tonsils normal (no TP congestion) Neck Neck: Yes no lymphadenopathy and Yes supple Thyroid: Thyroid normal Resp Auscultation: clear to auscultation bilaterally, no rales and no wheezes Cardio Rate: regular rate Rhythm: regular rhythm Heart sounds: no murmurs GI Palpation (GI): Soft to palpation and nontender Auscultation: normal bowel sounds General: Yes no CVA tenderness Back/Spine/Pelvis Back: no CVA tenderness Thoracic/Lumbar Spine: No lumbar spinal tenderness Skin Rashes: no rashes Extrem General: Yes no clubbing, cyanosis or edema Office Procedures Flu Questionnaire Does the patient have a severe egg allergy?: No Does the patient have severe life threatening allergies?: No Does the patient have a fever or illness today?: No Has the patient ever had Guillain-[place] Syndrome?: No Has the patient ever had any past reaction to a flu shot?: No Results AMB Hemoglobin A1c AMB Hemoglobin A1c 5.9 % Last Edit by KERRY Santillan on 07/28/24 09 :39 Immunizations Fluarix Triv [id number] (PF) 45 mcg (15 mcg x 3)/0.5 mL IM syringe Performing Provider: Portillo Guy MD [facility] Administered by: KERRY Santillan on 07/28/24 09:35 Dose Route Admin Location Dispensed Lot Number Expiration Date 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.5 mL IM Left Deltoid 0.5 mL [id number] 04/12/25 [id number] [employer] VIS Given Date VIS Provided VIS Publication Date 07/28/24 Single Vaccine 21 Eligibility Eligibility Date Funding Source Not [facility] Eligible 07/28/24 Private Results Reviewed Results Reviewed: Laboratory Last Values Hgb A1c (Clinic) 5.9 % (4.0-6.0) 07/28/24 09:24 Coding Level of Care Code Est Pt Level 4 (01070) Complex EM visit Add On G2211 Diagnoses Type 2 diabetes mellitus without complication, with long-term current use of insulin E11.9; Z79.4 Diabetes mellitus type: type 2 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: with shelter use Diabetes mellitus complication status: without complication Benign essential hypertension I10 Palpitations R00.2 Migraine without status migrainosus, not intractable, unspecified migraine type G43.909 Migraine type: unspecified Status migrainosus presence: without status migrainosus Intractability: not intractable Gastroesophageal reflux disease without esophagitis K21.9 Esophagitis presence: without esophagitis Bile salt-induced diarrhea 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 Vitamin D deficiency E55.9 Nephrolithiasis N20.0 Obesity (BMI 30-39.9) E66.9 Assessment & Plan Assessment & Plan (1) Diabetes mellitus: Code(s): E11.9 - Type 2 diabetes mellitus without complications Category: Medical Qualifiers: Diabetes mellitus type: type 2 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: with terminal operations manager use Diabetes mellitus complication status: without complication Qualified Code(s): E11.9 - Type 2 diabetes mellitus without complications; 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 Plan: Her in-office HgbA1c today remains unchanged at 5.9% (her HgbA1c was also at 5.9% on her labs back in March 2024 and in August 2023) - goal is ideally <6.5% so she IS at goal Reinforced diabetic diet Continue Metformin 500 mg BID; she could not tolerate Farxiga 10 mg QD due to increased urinary symptoms Will recheck her labs in 4 months for follow up (2) Benign essential hypertension: Code(s): I10 - Essential (primary) hypertension Category: Medical Plan: Reinforced low sodium diet - goal is systolic BP of at least 120 to 130 mm or less Continue Gnpmhjctwv-Vlfzmhtiiv-ONTP 40-5-25 mg QD and Metoprolol ER 25 mg QD (3) Palpitations: Comment: Dx with SVT, 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 Code(s): R00.2 - Palpitations Category: Medical Plan: She has been seen and followed by cardiology in the past for this issue but has not been back to see them in over 3 years She was supposedly advised at her last appointment with them that she can just see them on an as-needed basis Echocardiogram done in 2017 showed normal LVEF, normal wall motion with no significant valvular abnormality; 30-day LUAN showed only sinus rhythm with no evidence of arrhythmias She was initially trialed on Metoprolol ER, which she states has kept her arrhythmias and palpitations mostly under control with only occasional episodes felt since Continue Metoprolol ER 25 mg QD (4) Migraine: Code(s): G43.909 - Migraine, unspecified, not intractable, without status migrainosus Category: Medical Qualifiers: Migraine type: unspecified Status migrainosus presence: without status migrainosus Intractability: not intractable Qualified Code(s): G43.909 - Migraine, unspecified, not intractable, without status migrainosus Plan: Stable Reinforced avoidance of migraine triggers continue Ibuprofen 800 mg PRN for symptomatic relief (5) GERD (gastroesophageal reflux disease): Code(s): K21.9 - Gastro-esophageal reflux disease without esophagitis Category: Medical Qualifiers: Esophagitis presence: without esophagitis Qualified Code(s): K21.9 - Gastro-esophageal reflux disease without esophagitis Plan: Dietary restrictions reinforced Continue Pantoprazole 40 mg QD (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 Category: Medical Plan: Primarily due to postcholecystectomy Continue Carafate 1 gm QD Patient is again reminded to avoid eating a lot fried, greasy or oily foods to minimize her symptoms and she appears to be doing well so far with regards to her GI symptoms (7) Vitamin D deficiency: Code(s): E55.9 - Vitamin D deficiency, unspecified Category: Medical Plan: Continue Vitamin D2 56071 units once a week (8) Nephrolithiasis: Code(s): N20.0 - Calculus of kidney Category: Medical Plan: (+) 7 mm calculus at the left UVJ with hydronephrosis seen on CT earlier this year (2023) S/P cystoscopy, stone basketing from left ureteral orifice and left stent placement Patient states that she has not had any flare ups of her urinary tract symptoms or issues with kidney stones since Her recent renal US showed only a 2 mm non-obstructing right renal calculus with no other abnormalities seen She will be getting a repeat renal US next year prior to her urology follow up appt Follow up with urology as scheduled (9) Obesity (BMI 30-39.9): Code(s): E66.9 - Obesity, unspecified Category: Medical Plan: Reinforced diet/exercise as tolerated/lose weight Plan As requested, flu vaccine given to patient today Follow up in 4 months Orders: Orders Influenza [id number] Immunization Today Z23 - Encounter for immunization AMB Hemoglobin A1c Today Z13.9 - Encounter for screening, unspecified
== END 2024-07-28 10:07 | disposition home or self-care (01) ==
PROVIDERS: PCP Internal Medicine; Visit Provider Internal Medicine
DX: E11.9 Type 2 diabetes mellitus without complications (principal); Z79.4 Long term (current) use of insulin; I10 Essential (primary) hypertension; R00.2 Palpitations; G43.909 Migraine, unspecified, not intractable, without status migrainosus; K21.9 Gastro-esophageal reflux disease without esophagitis; E66.9 Obesity, unspecified; Z68.34 Body mass index [BMI] 34.0-34.9, adult; K90.89 Other intestinal malabsorption; E55.9 Vitamin D deficiency, unspecified; N20.0 Calculus of kidney

== ENCOUNTER → 2024-07-28 09:22 | Outpatient (BNVA) | payer BC, SELFPAY | PROVIDERS: PCP Internal Medicine; Visit Provider Internal Medicine | DX: E11.9 Type 2 diabetes mellitus without complications (principal); I10 Essential (primary) hypertension; R00.2 Palpitations; G43.909 Migraine, unspecified, not intractable, without status migrainosus; K21.9 Gastro-esophageal reflux disease without esophagitis; K90.89 Other intestinal malabsorption; E55.9 Vitamin D deficiency, unspecified; N20.0 Calculus of kidney; E66.9 Obesity, unspecified; Z68.34 Body mass index [BMI] 34.0-34.9, adult; Z79.4 Long term (current) use of insulin; Z79.899 Other long term (current) drug therapy; Z23 Encounter for immunization | CPT/HCPCS: 83036; 90471; 90656; 96127 ==

== ENCOUNTER 2024-09-23 08:21 | Outpatient (AMB) | payer BC, SELFPAY ==
[2024-09-23 09:08] VITALS: BP 124/88; PULSE 79; TEMP 36.1; O2SAT 98; BMI 34.7
--- NOTE | 2024-09-23 09:08 | AM.OFFWIN_ITS ---
Intake Vital Signs 09/23/24 09:08 Height 5 ft 4 in Weight 202 lb 4 oz BMI 34.7 BP 124/88 Blood Pressure Location Lt brachial Position Sitting Pulse 79 Pulse Source Pulse Oximeter Temp 97.0 F Temp Source Temporal Artery Scan Pulse Oximetry (%) 98 Oxygen Delivery Method Room Air Intake Visit Reasons: EP sinus, cough Intake Note: Pt presents to the office today for c/o sinus pressure and a cough for the past 3 days. Pt states she did take an at home covid test this morning which was negative. Patient Tobacco Use Status: Former Tobacco user Allergies carbamazepine [From Tegretol] Allergy (Intermediate, Verified 09/23/24 09:10) RASH divalproex sodium [From Depakote] Allergy (Intermediate, Verified 09/23/24 09:10) RASH Iodinated Contrast Media [IV Dye, Iodine Containing] Allergy (Intermediate, Verified 09/23/24 09:10) HIVES dapagliflozin [From Farxiga] Adverse Reaction (Severe, Verified 09/23/24 09:10) loss of bladder control HPI HPI Comments History of Present Illness Details History Physical Exam General: Cooperative, healthy appearing, comfortable and no acute distress Orientation/consciousness: Patient oriented x3 Limitations: No limitations Head: Normal to inspection Ears: Hearing grossly normal bilaterally, external ears normal, fluid in the right ear, purulent effusion right TM, left TM normal Nose: Normal external nose present, Normal nares present and No nasal discharge present Face and sinus: Normal facial exam, slight headache, jaw pain, and Yes sinuses nontender Mouth: Normal oral and palatal mucosa present and moist mucous membranes Throat: Yes tonsils normal, Yes uvula midline. Posterior oropharynx erythema Eyes: Appearance normal, both eyes and all related structures Neck: Normal visual inspection Respiratory: Clear to auscultation bilaterally. Normal respiratory effort, able to speak in complete sentences, no respiratory distress, not tachypneic, no tripod positioning and no use of accessory muscles Cardiovascular: Regular rate and rhythm. Normal S1 and S2 Skin: No rashes or lesions noted Neuro: Patient oriented x3 Extremities: Normal to inspection and Yes no clubbing, cyanosis or edema REPLACED BY [facility] Medical History Pure hypercholesterolemia Diabetes mellitus SVT (supraventricular tachycardia) (Unknown) Obesity (BMI 30-39.9) Vitamin D deficiency GERD (gastroesophageal reflux disease) Migraine Benign essential hypertension Surgical History History of colonoscopy (~05/28/19) History of ankle surgery S/P appendectomy S/P breast biopsy S/P cholecystectomy Family History Father Heart disease Hypertension Mother Heart disease Hypertension Diabetes mellitus Maternal Grandmother No problems noted. Maternal Grandfather No problems noted. Paternal Grandfather No problems noted. 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 Cognitive needs: No Hearing needs: No Vision needs: No Review of Systems Const All systems reviewed & are unremarkable except as noted in HPI and below Physical Exam Vital Signs: Last Vital Signs Temp 97.0 F 09/23/24 09:08 Pulse 79 09/23/24 09:08 BP 124/88 09/23/24 09:08 Pulse Ox 98 09/23/24 09:08 Oxygen Delivery Method Room Air 09/23/24 09:08 BMI result Body Mass Index 34.7 Assessment & Plan Assessment & Plan (1) Sinusitis, acute: Code(s): J01.90 - Acute sinusitis, unspecified Qualifiers: Sinusitis location: maxillary Recurrence: non-recurrent Qualified Code(s): J01.00 - Acute maxillary sinusitis, unspecified Plan: 1. Acute Sinusitis: Initiate a short course of low dose systemic steroids (prednisone 20 mg once daily for 5 days) to alleviate fluid retention and reduce pressure. Consider the use of a Neti pot for nasal irrigation and flonase. Sent flu,covid and rsv testing Patient was informed and verbally consented to the use of an ambient scribe for clinic note documentation during this visit (2) Otitis media of right ear: Code(s): H66.91 - Otitis media, unspecified, right ear Qualifiers: Otitis media type: suppurative Chronicity: acute Recurrence: non- recurrent Spontaneous tympanic membrane rupture: without spontaneous rupture Qualified Code(s): H66.001 - Acute suppurative otitis media without spontaneous rupture of ear drum, right ear Plan: Acute Otitis Media: Amoxicillin sent to pharmacy. Orders: Orders SARS-CoV2/FLU/RSV Today J06.9 - Acute upper respiratory infection, unspecified Medications: New amoxicillin 875 mg PO Q12H 10 tabs 0RF prednisone 20 mg PO QAM 5 tabs 0RF Coding Level of Care Code Est Pt Level 4 (08405) Diagnoses Acute non-recurrent maxillary sinusitis J01.00 Sinusitis location: maxillary Recurrence: non-recurrent Non-recurrent acute suppurative otitis media of right ear without spontaneous rupture of tympanic membrane H66.001 Otitis media type: suppurative Chronicity: acute Recurrence: non-recurrent Spontaneous tympanic membrane rupture: without spontaneous rupture
== END 2024-09-23 09:35 | disposition home or self-care (01) ==
PROVIDERS: PCP Internal Medicine; Visit Provider Physician Assistant
DX: J01.00 Acute maxillary sinusitis, unspecified (principal); H66.001 Acute suppurative otitis media without spontaneous rupture of ear drum, right ear

== ENCOUNTER 2024-09-23 08:21 | Outpatient (REF) | payer BC, SELFPAY ==
[2024-09-23 11:28] LABS: Influenza A PCR NEGATIVE (Negative); Influenza B PCR NEGATIVE (Negative); Resp Syncy Virus RNA Qual PCR NEGATIVE (Negative); SARS COV2 PCR INHOUSE NEGATIVE (Negative)
== END 2024-09-23 08:22 | disposition home or self-care (01) ==
LOC: HO.LAB 08:21
PROVIDERS: PCP Internal Medicine; Visit Provider Physician Assistant
DX: J06.9 Acute upper respiratory infection, unspecified (principal)
CPT/HCPCS: 0241U

== ENCOUNTER 2024-11-24 07:49 | Outpatient (REF) | payer BC, SELFPAY ==
[2024-11-24 10:05] LABS: Appearance Urine Turbid; Color Urine Yellow; Glucose Urine UA Negative (Negative); Leukocyte Esterase Urine Negative (Negative); Nitrite Urine Negative (Negative); PH 5.5 (5.0-9.0); Specific Gravity - Urine 1.025 (1.005-1.025); UMIC TRIGGER UACC YES; Urine Blood Negative (Negative); Urine Ketones Negative (Negative); Urine Protein 30 (1+) mg/dL (Neg-Trace)
[2024-11-24 10:13] LABS: Bacteria Urine None Seen (None Seen); Hyaline Casts Urine 0-2 /LPF (0-2); RBC Urine 0-2 /HPF (0-2); WBC Urine 0-5 /HPF (0-5)
[2024-11-24 10:18] LABS: MANUAL DIFF FLAG NO
[2024-11-24 10:30] LABS: Basophils Percent Auto 0.3 % (0-2); Eosinophils Absolute Auto 0.2 X10*3/uL (0.0-0.4); Eosinophils Percent Auto 2.7 % (0-4); Hematocrit 35.7 % (37.0-47.0); Hemoglobin 11.5 g/dl (12.0-16.0); Imm Gran Abs Auto 0.02 X10*3/uL (0.00-0.03); Imm Gran Pct Auto 0.3 % (0.0-0.4); Lymphocytes Absolute Auto 2.3 X10*3/uL (1.2-4.9); Lymphocytes Percent Auto 33.7 % (20-40); Mean Corpuscular HGB Conc 32.2 g/dl (31.0-35.0); Mean Corpuscular Hemoglobin 29.3 pg (27.0-33.0); Mean Corpuscular Volume 91.1 fL (80.0-98.0); Mean Platelet Volume 11.2 fL (9.4-12.3); Monocytes Absolute Auto 0.4 X10*3/uL (0.1-1.2); Monocytes Percent Auto 6.4 % (2-11); Neutrophils Absolute Auto 3.9 x10*3/uL (2.0-8.3); Neutrophils Percent Auto 56.6 % (45-73); Platelet Count 263 X10*3/uL (160-400); Red Blood Count 3.92 X10*6/uL (4.20-5.50); Red Cell Distribution Width 13.2 % (11.0-16.0); White Blood Count 6.9 X10*3/uL (4.8-10.8)
[2024-11-24 10:45] LABS: Alanine Aminotransferase 67 U/L (0-31); Albumin Level 4.3 g/dL (3.5-5.0); Alkaline Phosphatase 67 U/L (39-117); Anion Gap 9 (12-20); Aspartate Amino Transferase 43 U/L (5-31); Bilirubin Total 0.4 mg/dL (0.0-1.0); Blood Urea Nitrogen 19 mg/dL (9-16); Calcium 9.3 mg/dL (8.4-10.2); Carbon Dioxide 26 mmol/L (22-29); Chloride 109 mmol/L (96-108); Cholesterol 163 mg/dL (<200); Estimated Glomerular Filt Rate > 60; Glucose Fasting 126 mg/dL (60-99); HDL Cholesterol 57 mg/dL (>40); LDL Cholesterol Calculated 88 mg/dL (<100); Potassium 3.6 mmol/L (3.3-5.1); Sodium 140 mmol/L (135-145); Total Protein 7.9 g/dL (6.5-8.0); Triglycerides 91 mg/dL (<150)
[2024-11-24 10:56] LABS: Estimated Average Glucose 126 mg/dL; Hemoglobin A1C 176.1839 umol/L
[2024-11-24 11:06] LABS: TSH reflex Free T4 1.46 uIU/mL (0.32-4.0); Vitamin D 25-OH Total 67.1 ng/mL (>30)
== END 2024-11-24 07:50 | disposition home or self-care (01) ==
LOC: HO.HMGCLDS 07:49
PROVIDERS: PCP Internal Medicine; Visit Provider Internal Medicine
DX: E78.00 Pure hypercholesterolemia, unspecified (principal); D64.9 Anemia, unspecified; E11.9 Type 2 diabetes mellitus without complications; E55.9 Vitamin D deficiency, unspecified
CPT/HCPCS: 36415; 80053; 80061; 81001; 81003; 82306; 83036; 84443; 85025

== ENCOUNTER 2024-11-30 08:56 | Outpatient (REF) | payer BC, SELFPAY ==
--- NOTE | ~2024-11-30 | XR_ITS ---
EXAMINATION: XR ANKLE, RIGHT CLINICAL INFORMATION: M25.571 - Pain in right ankle and joints of right foot COMPARISON: None available. TECHNIQUE: AP, lateral, and mortise views of the right ankle. FINDINGS: No fracture, dislocation, or suspicious bone lesion. There is normal alignment. Prior lateral plate and screw fixation of the lateral malleolus. No hardware loosening or complication. The ankle mortise is intact. The talar dome is normal. There are mild degenerative changes of the ankle joint. No evidence of joint effusion. Small plantar calcaneal spur. Normal subtalar joints. There are early vascular calcifications. Soft tissues otherwise normal. XR/XR ankle RT min 3V IMPRESSION: 1. No acute findings right ankle. Electronically signed by: Jason Gil MD 12/01/2024 10:35 AM GURDEEP [employer]ER
== END 2024-11-30 08:57 | disposition home or self-care (01) ==
LOC: HO.HMGCX 08:56
PROVIDERS: PCP Internal Medicine; Visit Provider Internal Medicine
DX: M25.571 Pain in right ankle and joints of right foot (principal); E11.9 Type 2 diabetes mellitus without complications; Z79.4 Long term (current) use of insulin; I10 Essential (primary) hypertension; R00.2 Palpitations; G43.909 Migraine, unspecified, not intractable, without status migrainosus; K21.9 Gastro-esophageal reflux disease without esophagitis; R79.89 Other specified abnormal findings of blood chemistry; K90.89 Other intestinal malabsorption; N20.0 Calculus of kidney
CPT/HCPCS: 73610; 96127

== ENCOUNTER 2024-11-30 08:56 | Outpatient (AMB) | payer BC, SELFPAY ==
--- NOTE | 2024-11-30 09:03 | A.OFFPC_ITS ---
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 Required: No Accompanied by: Self / Same As Patient Allergies carbamazepine [From Tegretol] Allergy (Intermediate, Verified 11/30/24 09:53) RASH divalproex sodium [From Depakote] Allergy (Intermediate, Verified 11/30/24 09:53) RASH Iodinated Contrast Media [IV Dye, Iodine Containing] Allergy (Intermediate, Verified 11/30/24 09:53) HIVES dapagliflozin [From Farxiga] Adverse Reaction (Severe, Verified 11/30/24 09:53) loss of bladder control Medication List - Last Reconciled 11/30/24 by Portillo Guy MD alcohol swabs 1 pad topical QIDACHS amoxicillin 875 mg PO Q12H blood sugar diagnostic (FreeStyle Lite Strips) Test four times a day or as directed. blood-glucose meter (FreeStyle Lite Meter kit) As Directed 4 times a day ergocalciferol (vitamin D2) (Vitamin D2) 1,250 mcg PO QWEEK ibuprofen 800 mg PO TID PRN 90 days insulin lispro (Humalog KwikPen (U-100) Insulin) 1 sliding scale dose subcut QIDACHS MDD 30 units lancets (FreeStyle Lancets) Test four times a day or as directed. metformin 500 mg PO BID 90 days metoprolol succinate ER 25 mg PO DAILY weuamernwj-doraodtbs-ipnqtrofk 40-5-25 mg 1 tab PO DAILY pantoprazole 40 mg PO DAILY pen needle, diabetic Use four times a day or as directed. prednisone 20 mg PO QAM sucralfate 1 g PO DAILY Tobacco use date assessed: 11/30/24 Fall risk assessment: 1 Fall in past year Last assessed Fall Risk: 11/30/24 Dental Screening Dental Screen Date: 11/30/24 Did you have a dental visit in the last 12 months?: Yes Did you have a dental problem in the last 6 months where you did not have access to dental care?: No Was dental information given to patient?: Patient has dentist HPI DM, HTN, hyperlipidemia HPI Details Patient comes in today for her follow up visit States that she currently feels okay Recalls that she had some sinus and ear infection back in September 2024 and she went to the walk-in clinic in [place] and was prescribed some Amoxicillin - states that her symptoms cleared up with the antibiotic treatment Recalls being advised that she has a bubble noted on exam of her right eardrum at the time and she was wondering if this is something she has to be concerned about She currently denies any ear pain and no longer has any residual symptoms of cough or congestion She denies any headaches or dizziness Denies any chest pains, no SOB No nausea/vomiting, no abdominal pain No change in bowel habits noted Adds that she has been experiencing frequent right ankle pain lately States that she had right ankle surgery about 20 years ago following an injury and fracture of the ankle and relates that she has screws inserted into her ankle back then She had her follow up labs done last week - to discuss her results [facility] Medical History Elevated LFTs Pure hypercholesterolemia Diabetes mellitus SVT (supraventricular tachycardia) (Unknown) Obesity (BMI 30-39.9) Vitamin D deficiency GERD (gastroesophageal reflux disease) Migraine Benign essential hypertension Surgical History (Updated 11/30/24 @ 12:25 by Portillo Guy MD) History of colonoscopy (~05/28/19) History of ankle surgery S/P appendectomy S/P breast biopsy S/P cholecystectomy Family History Father Heart disease Hypertension Mother Heart disease Hypertension Diabetes mellitus Maternal Grandmother No problems noted. Maternal Grandfather No problems noted. Paternal Grandfather No problems noted. 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 1. Little interest or pleasure in doing things: not at all 2. Feeling down, depressed, or hopeless: not at all 3. Trouble falling or staying asleep, or sleeping too much: not at all 4. Feeling tired or having little energy: not at all 5. Poor appetite or overeating: not at all 6. Feeling bad about yourself - or that you are a failure or have let yourself or your family down: not at all 7. Trouble concentrating on things, such as reading the newspaper or watching television: not at all 8. Moving or speaking so slowly that other people could have noticed. Or the opposite - being so fidgety or restless that you have been moving around a lot more than usual: not at all 9. Thoughts that you would be better off or of hurting yourself in some way: not at all Total score: 0 Depression Screening Interpretation: Negative Depression Screening Done: Yes 98243 - PHQ-9 Billing: Yes Source: Developed by Drs. David Briones, Nury Britton, Shabbir Knox and colleagues, with an educational jean claude from [employer]. Thrive Questionnaire Date Thrive assessed: 11/30/24 I am a: Patient What is your living situation today?: I have a steady place to live Within the past 12 months, did the food you bought not last and you didn't have the money to get more?: Never true Within the past 12 months, did you worry whether your food would run out before you got money to buy more?: Never true Do you have trouble paying for medicines?: No Do you have trouble getting transportation to medical appointments?: No Do you have trouble paying your heating and electricity bill?: No Do you have trouble taking care of your child, family member or friend?: No Do you have trouble with day-to-day activities such as bathing, preparing meals, shopping, managing finances, etc.?: No Are you currently unemployed and looking for a job?: No Are you interested in more education?: No Please select the resources that you would like help with: None Currently or been in a relationship where the following occur: No concerns reported THRIVE Score: 0 AUDIT C Alcohol Use Questionnaire (AUDIT-C) 1. How often do you have a drink containing alcohol?: Monthly or less 2. How many drinks containing alcohol do you have on a typical day when you are drinking?: 1 or 2 3. How often do you have six or more drinks on one occasion?: Never Total Score: 1 Score Reviewed/Action Taken: Yes RAMON-7 AMB Questionnaire RAMON-7 Date RAMON - 7 assessed: 11/30/24 Feeling nervous, anxious, or on edge: 0 = Not at all Not being able to stop or control worryin = Not at all Worrying too much about different things: 0 = Not at all Trouble relaxin = Not at all Being so restless that it is hard to sit still: 0 = Not at all Becoming easily annoyed or irritable: 0 = Not at all Feeling afraid as if something awful might happen: 0 = Not at all Total RAMON-7 score (0-4 normal; 5-9 mild; 10-14 moderate; 15-21 severe): 0 Source: Developed by Drs. David Briones, Nury Britton, Shabbir Knox and colleagues, with an educational jean claude from [employer]. Review of Systems Const Denies chills, Denies fatigue, Denies fever(s) and Denies headache(s) ENT Denies dysphagia, Denies dizziness, Denies otalgia, Denies headache(s), Denies nasal congestion, Denies neck pain, Denies odynophagia and Denies sore throat Card Denies chest pain, Denies rapid heart rate, Denies palpitations and Denies dyspnea Resp Denies chest congestion, Denies cough and Denies dyspnea GI Denies abdominal pain, Denies constipation, Denies dysphagia, Denies heartburn, Denies diarrhea, Denies nausea, Denies odynophagia and Denies vomiting Denies urinary frequency, Denies dysuria and Denies urinary urgency Musc Denies back pain, Reports arthralgias (right ankle, increasing) and Denies neck pain Skin/Breast Denies rash Neuro Denies dizziness, Denies headache(s) and Denies paresthesias Psych Denies anxiety and Denies depression Endo Denies fatigue and Denies palpitations Hunetr/Lymph Denies easy bruising Physical exam (Primary Care) Vital Signs: Last Vital Signs Pulse 70 11/30/24 09:04 BP 116/78 11/30/24 09:04 Pulse Ox 97 11/30/24 09:04 Oxygen Delivery Method Room Air 11/30/24 09:04 BMI result Body Mass Index 35.2 Tobacco/Smoking Status: Tobacco use Status Tobacco use date assessed 11/30/24 11/30/24 09:05 Patient Tobacco Use Status Former Tobacco user 11/30/24 09:05 e-Cigarette/Vaping Use Never Used 11/30/24 09:05 PHQ-9: PHQ-9 Score PHQ-9: Total score 0 11/30/24 09:55 Depression Screening Interpretation: Negative Thrive Assessment: Date of Thrive Assessment Date Thrive assessed 11/30/24 11/30/24 09:05 Currently or been in a relationship where the following occur: No concerns reported Const General: no acute distress and alert HENMT Ears: TM's normal bilaterally and EAC's normal Throat: Yes posterior oropharynx normal and Yes tonsils normal (no TP congestion) Neck Neck: Yes supple and No lymphadenopathy Thyroid: Thyroid normal Resp Auscultation: clear to auscultation bilaterally, no rales and no wheezes Cardio Rate: regular rate Rhythm: regular rhythm Heart sounds: no murmurs GI Palpation (GI): Soft to palpation and nontender Auscultation: normal bowel sounds General: Yes no CVA tenderness Back/Spine/Pelvis Back: no CVA tenderness Thoracic/Lumbar Spine: No lumbar spinal tenderness Skin Rashes: no rashes Extrem General: Yes no clubbing, cyanosis or edema Right lower extremity: ankle Details: tenderness Location: of the lateral malleolus, of the medial malleolus and posteriorly; no swelling Results Reviewed Results Reviewed: Laboratory Tests 11/24/24 11/24/24 07:54 09:34 WBC 6.9 Hgb 11.5 L Hct 35.7 L Plt Count 263 Sodium 140 Potassium 3.6 Creatinine 0.67 Estimated GFR > 60 Fasting Glucose 126 H Hemoglobin A1c % 6.0 Calcium 9.3 D AST 43 H ALT 67 H Triglycerides 91 Cholesterol 163 LDL Cholesterol, Calc 88 HDL Cholesterol 57 25-OH Vitamin D Total 67.1 TSH 1.46 Ur Specific [place] 1.025 Urine Protein 30 (1+) H Urine Glucose (UA) Negative Urine Blood Negative Urine Nitrite Negative Ur Leukocyte Esterase Negative Coding Level of Care Code Est Pt Level 4 (44220) Complex EM visit Add On G2211 Diagnoses Type 2 diabetes mellitus without complication, with long-term current use of insulin E11.9; Z79.4 Diabetes mellitus complication status: without complication 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 Diabetes mellitus type: type 2 Benign essential hypertension I10 Palpitations R00.2 Migraine without status migrainosus, not intractable, unspecified migraine type G43.909 Intractability: not intractable Migraine type: unspecified Status migrainosus presence: without status migrainosus Gastroesophageal reflux disease without esophagitis K21.9 Esophagitis presence: without esophagitis Elevated LFTs R79.89 Bile salt-induced diarrhea K90.89 Right ankle pain, unspecified chronicity M25.571 Chronicity: unspecified Vitamin D deficiency E55.9 Nephrolithiasis N20.0 Obesity (BMI 30-39.9) E66.9 Additional Codes PHQ-9 - 91709 - PHQ-9 Billing: Yes ([id number]) Assessment & Plan Assessment & Plan (1) Diabetes mellitus: Code(s): E11.9 - Type 2 diabetes mellitus without complications Category: Medical Qualifiers: Diabetes mellitus complication status: without complication 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: with equipment operator intermodal yard use Diabetes mellitus type: type 2 Qualified Code(s): E11.9 - Type 2 diabetes mellitus without complications; Z79.4 - terminal gauger (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 of insulin Plan: Her HgbA1c was at 6.0% on her labs done last week (in-office HgbA1c was at 5.9% a few months ago) - goal is ideally <6.5% so she IS at goal Reinforced diabetic diet Continue Metformin 500 mg BID; she could not tolerate Farxiga 10 mg QD due to increased urinary symptoms Will recheck her labs in 4 months for follow up (2) Benign essential hypertension: Code(s): I10 - Essential (primary) hypertension Category: Medical Plan: Reinforced low sodium diet - goal is systolic BP of at least 120 to 130 mm or less Continue Iprlvtkunc-Jkudefgflh-DKLR 40-5-25 mg QD and Metoprolol ER 25 mg QD (3) Palpitations: Comment: Dx with SVT, 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 Code(s): R00.2 - Palpitations Category: Medical Plan: She has been seen and followed by cardiology for this issue in the past but she has not been back to see them in over 3 years She was supposedly advised at her last appointment with them that she can just see them on an as-needed basis Echocardiogram done in 2017 showed normal LVEF, normal wall motion with no significant valvular abnormality; 30-day LUAN showed only sinus rhythm with no evidence of arrhythmias She was trialed on Metoprolol ER, which she states has kept her arrhythmias and palpitations mostly under control with only occasional episodes felt since Continue Metoprolol ER 25 mg QD (4) Migraine: Code(s): G43.909 - Migraine, unspecified, not intractable, without status migrainosus Category: Medical Qualifiers: Intractability: not intractable Migraine type: unspecified Status migrainosus presence: without status migrainosus Qualified Code(s): G43.909 - Migraine, unspecified, not intractable, without status migrainosus Plan: Stable Reinforced avoidance of migraine triggers Continue Ibuprofen 800 mg PRN for symptomatic relief (5) GERD (gastroesophageal reflux disease): Code(s): K21.9 - Gastro-esophageal reflux disease without esophagitis Category: Medical Qualifiers: Esophagitis presence: without esophagitis Qualified Code(s): K21.9 - Gastro-esophageal reflux disease without esophagitis Plan: Dietary restrictions reinforced Continue Pantoprazole 40 mg QD (6) Elevated LFTs: Code(s): R79.89 - Other specified abnormal findings of blood chemistry Category: Medical Plan: Patient is advised that her LFTs are elevated on her recent labs and these are likely related to her weight - hepatosteatosis Advised that losing weight should help get these back to normal but if her LFTs do not improve then remain elevated over the next few months, then we should consider getting an abdominal ultrasound for further evaluation We will continue to monitor her LFTs regularly (7) Bile salt-induced diarrhea: Code(s): 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 Category: Medical Plan: Primarily due to her cholecystectomy Continue Carafate 1 gm QD Patient is again reminded to avoid eating a lot fried, greasy or oily foods to minimize her symptoms - she appears to be doing well so far with regards to her GI symptoms (8) Right ankle pain: Code(s): M25.571 - Pain in right ankle and joints of right foot Category: Medical Qualifiers: Chronicity: unspecified Qualified Code(s): M25.571 - Pain in right ankle and joints of right foot Plan: S/P ORIF in 09/[address] Calvillo for a trimalleolar fracture and there are concerns of possible hardware loosening or migration Will send patient for x-rays of the right ankle for further evaluation (9) Vitamin D deficiency: Code(s): E55.9 - Vitamin D deficiency, unspecified Category: Medical Plan: Continue Vitamin D2 78587 units once a week (10) Nephrolithiasis: Code(s): N20.0 - Calculus of kidney Category: Medical Plan: (+) 7 mm calculus at the left UVJ with hydronephrosis seen on CT last year (2023) S/P cystoscopy, stone basketing from left ureteral orifice and left stent placement Patient states that she has not had any flare ups of her urinary tract symptoms or issues with kidney stones since Her recent renal US showed only a 2 mm non-obstructing right renal calculus with no other abnormalities seen She will be getting a repeat renal US next year prior to her urology follow up appt Follow up with urology as scheduled (11) Obesity (BMI 30-39.9): Code(s): E66.9 - Obesity, unspecified Category: Medical Plan: Reinforced diet/exercise as tolerated/lose weight Plan Follow up in 4 months Orders: Orders Complete Blood Count Auto Diff 4 Months D64.9 - Anemia, unspecified Comprehensive [place]. Panel Fast 4 Months E78.00 - Pure hypercholesterolemia, unspecified TSH reflex Free T4 4 Months E78.00 - Pure hypercholesterolemia, unspecified UA CC w/rflx Micro + Cult 4 Months R30.0 - Dysuria XR ankle RT min 3V Today M25.571 - Pain in right ankle and joints of right foot Hemoglobin A1c 4 Months E11.9 - Type 2 diabetes mellitus without complications Lipid Panel 4 Months E78.00 - Pure hypercholesterolemia, unspecified Microalbumin, Random (w Creat) 4 Months E11.9 - Type 2 diabetes mellitus without complications Vitamin D 25-OH Total 4 Months E55.9 - Vitamin D deficiency, unspecified
[2024-11-30 09:04] VITALS: BP 116/78; PULSE 70; O2SAT 97; BMI 35.2
== END 2024-11-30 10:14 | disposition home or self-care (01) ==
PROVIDERS: PCP Internal Medicine; Visit Provider Internal Medicine
DX: E11.9 Type 2 diabetes mellitus without complications (principal); Z79.4 Long term (current) use of insulin; E66.9 Obesity, unspecified; Z68.35 Body mass index [BMI] 35.0-35.9, adult; I10 Essential (primary) hypertension; R00.2 Palpitations; G43.909 Migraine, unspecified, not intractable, without status migrainosus; K21.9 Gastro-esophageal reflux disease without esophagitis; R79.89 Other specified abnormal findings of blood chemistry; K90.89 Other intestinal malabsorption; M25.571 Pain in right ankle and joints of right foot; E55.9 Vitamin D deficiency, unspecified

== ENCOUNTER → 2024-11-30 13:14 | Outpatient (BNV) | payer BC, SELFPAY | PROVIDERS: PCP Internal Medicine; Visit Provider Radiology Diagnostic Radiology | DX: M25.571 Pain in right ankle and joints of right foot (principal) | CPT/HCPCS: 73610 ==

== ENCOUNTER 2025-02-17 07:16 | Outpatient (AMB) | payer BC, SELFPAY ==
--- NOTE | 2025-02-17 07:21 | MHC.OFFVIS ---
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: No Information Interpreted: non-clinical & clinical Cigarette Making Examiner: Cigarette Making Examiner Present (Salima PAYNE) Accompanied by: Spouse Allergies carbamazepine [From Tegretol] Allergy (Intermediate, Verified 02/17/25 07:22) RASH divalproex sodium [From Depakote] Allergy (Intermediate, Verified 02/17/25 07:22) RASH Iodinated Contrast Media [IV Dye, Iodine Containing] Allergy (Intermediate, Verified 02/17/25 07:22) HIVES dapagliflozin [From Farxiga] Adverse Reaction (Severe, Verified 02/17/25 07:22) loss of bladder control Post menopausal: Yes HPI Comments Details: Presenting for annual exam. No complaints. Last Pap/HPV was negative in 02/03 Last Mammogram was BI-RADS 1 in 06/06 Last Colonoscopy was in 01/03, the recommendation was to repeat in 7-10 years [facility] Medical History Elevated LFTs Pure hypercholesterolemia Diabetes mellitus SVT (supraventricular tachycardia) (Unknown) Obesity (BMI 30-39.9) Vitamin D deficiency GERD (gastroesophageal reflux disease) Migraine Benign essential hypertension Surgical History History of colonoscopy (~05/28/19) History of ankle surgery S/P appendectomy S/P breast biopsy S/P cholecystectomy Family History Father Heart disease Hypertension Mother Heart disease Hypertension Diabetes mellitus Maternal Grandmother No problems noted. Maternal Grandfather No problems noted. Paternal Grandfather No problems noted. 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 Cognitive needs: No Hearing needs: No Vision needs: No Female Reproductive History Menstrual Date of last pap smear: 02/07/23 Date of Mammogram: 05/18/24 Review of Systems Const All systems reviewed & are unremarkable except as noted in HPI and below Card Reports as per HPI Resp Reports as per HPI GI Reports as per HPI and Reports no additional complaints Reports as per HPI Physical Exam Vital Signs: Last Vital Signs BP 132/70 02/17/25 07:22 BMI result Body Mass Index 33.6 Const General: cooperative, healthy appearing and comfortable Chest Chest palpation & inspection: normal inspection of the chest and normal palpation of entire chest wall Breast/axilla inspection: normal inspection of the breasts and normal inspection of the axillae Breast/axilla palpation: normal palpation of the breasts, normal palpation of the axillae and no axillary lymphadenopathy Resp Effort & Inspection: normal respiratory effort Auscultation: clear to auscultation bilaterally Percussion: percussion normal Cardio Palpation: normal PMI Rate: regular rate Rhythm: regular rhythm Heart sounds: no murmurs and no rubs Peripheral pulses: Peripheral pulses 2+ throughout GI Inspection: Yes normal to inspection Palpation (GI): Soft to palpation, nontender, no guarding, not rigid and No hepatosplenomegaly present Percussion: Yes normal to percussion Auscultation: normal bowel sounds Rectal Exam - Female: deferred General: Yes bladder normal to palpation External Female Exam: No lesion Speculum Exam - Vagina: normal appearance of the vagina, normal palpation, normal vaginal discharge and not erythematous Speculum Exam - Cervix: normal appearance of the cervix and normal palpation Bimanual exam- vagina & uterus: normal bimanual exam, normal palpation, uterine size normal, bladder normal to palpation, consistency normal and normal palpation Bimanual Exam- Adnexa, other: normal adnexae, no masses and no tenderness Assessment & Plan Assessment & Plan (1) Well woman exam: Code(s): Z01.419 - Encounter for gynecological examination (general) (routine) without abnormal findings Category: Medical Plan: Co testing not indicated this year. Counseled the patient about the recommended dietary allowance of 1200 mg of Calcium & 600 IU of vitamin D. Instructions given the patient to schedule next screening Mammogram in 06/07. The patient was instructed to perform monthly self-breast exams and schedule annual exam in a year. All questions answered and the patient verbalized understanding. Coding Level of Care Code Est Pt Prev Care 40-64y(91552) Diagnoses Well woman exam Z01.419
[2025-02-17 07:22] VITALS: BP 132/70; BMI 33.6
== END 2025-02-17 08:09 | disposition home or self-care (01) ==
LOC: HO.HWS 07:17
PROVIDERS: PCP Internal Medicine; Visit Provider Obstetrics & Gynecology
DX: Z01.419 Encounter for gynecological examination (general) (routine) without abnormal findings (principal)
CPT/HCPCS: 99396; 99459

== ENCOUNTER 2025-04-13 07:48 | Outpatient (REF) | payer BC, SELFPAY ==
--- OUTSIDE RECORDS SUMMARY | 2025-04-13 07:50 | XMS_ITS | Patient Health Record ---
Author Organization [facility] Address [address] [place] [id number] Care Team Providers Care Finished Cloth Examiner Name Role Phone David Villaseñor Unavailable [phone] Reason For Referral No Information Plan Of Treatment No Information
[2025-04-13 10:03] LABS: MANUAL DIFF FLAG NO
[2025-04-13 10:18] LABS: Hematocrit 35.7 % (37.0-47.0); Hemoglobin 11.7 g/dl (12.0-16.0); Imm Gran Abs Auto 0.02 X10*3/uL (0.00-0.03); Imm Gran Pct Auto 0.3 % (0.0-0.4); Lymphocytes Absolute Auto 2.2 X10*3/uL (1.2-4.9); Mean Corpuscular HGB Conc 32.8 g/dl (31.0-35.0); Mean Corpuscular Hemoglobin 29.3 pg (27.0-33.0); Mean Corpuscular Volume 89.3 fL (80.0-98.0); NRBC Abs Auto 0.000 X10*3/uL (0.0-0.012); NRBC Pct Auto 0.0 /100WBC (0.0-0.2); Platelet Count 258 X10*3/uL (160-400); Red Blood Count 4.00 X10*6/uL (4.20-5.50); White Blood Count 7.1 X10*3/uL (4.8-10.8)
[2025-04-13 10:19] LABS: Appearance Urine Clear; Glucose Urine UA Negative (Negative); PH 5.5 (5.0-9.0); Specific Gravity - Urine 1.020 (1.005-1.025)
[2025-04-13 10:41] LABS: Alanine Aminotransferase 60 U/L (0-31); Albumin Level 4.6 g/dL (3.5-5.0); Alkaline Phosphatase 70 U/L (39-117); Anion Gap 14 (12-20); Aspartate Amino Transferase 48 U/L (5-31); Blood Urea Nitrogen 13 mg/dL (9-16); Calcium 9.5 mg/dL (8.4-10.2); Carbon Dioxide 26 mmol/L (22-29); Chloride 106 mmol/L (96-108); Cholesterol 150 mg/dL (<200); Estimated Glomerular Filt Rate > 60; HDL Cholesterol 53 mg/dL (>40); Potassium 3.7 mmol/L (3.3-5.1); Sodium 142 mmol/L (135-145); Total Protein 7.6 g/dL (6.5-8.0); Triglycerides 80 mg/dL (<150)
[2025-04-13 10:51] LABS: Hemoglobin A1C 125.0585 umol/L; Total Hemoglobin (HGBA1C) 3145.1336 umol/L
[2025-04-13 11:28] LABS: Microalbum/Creatinine Ratio Ur 48.8 ug/mg cr (<30)
== END 2025-04-13 07:49 | disposition home or self-care (01) ==
LOC: HO.HMGCLDS 07:48
PROVIDERS: PCP Internal Medicine; Visit Provider Internal Medicine
DX: E11.9 Type 2 diabetes mellitus without complications (principal); E78.00 Pure hypercholesterolemia, unspecified; E55.9 Vitamin D deficiency, unspecified; R30.0 Dysuria; D64.9 Anemia, unspecified
CPT/HCPCS: 36415; 80053; 80061; 81003; 82043; 82306; 82570; 83036; 84443; 85025

== ENCOUNTER 2025-04-21 09:36 | Outpatient (AMB) | payer BC, SELFPAY ==
--- NOTE | 2025-04-21 09:45 | A.OFFPC_ITS ---
Vital Signs 04/21/25 09:46 Height 5 ft 4 in Weight 194 lb BMI 33.3 BP 122/78 Blood Pressure Location Lt brachial Position Sitting Pulse 61 Pulse Source Pulse Oximeter Pulse Oximetry (%) 97 Oxygen Delivery Method Room Air Intake Visit Reasons: 4mth f/u Facilities Maintenance Technician Required: No Accompanied by: Self / Same As Patient Allergies carbamazepine (From Tegretol) Allergy (Intermediate, Verified 04/21/25 10:28) RASH divalproex sodium (From Depakote) Allergy (Intermediate, Verified 04/21/25 10:28) RASH Iodinated Contrast Media (IV Dye, Iodine Containing) Allergy (Intermediate, Verified 04/21/25 10:28) HIVES dapagliflozin (From Farxiga) Adverse Reaction (Severe, Verified 04/21/25 10:28) loss of bladder control Medication List - Last Reconciled 04/21/25 by Portillo Guy MD alcohol swabs 1 pad topical QIDACHS blood sugar diagnostic (FreeStyle Lite Strips) Test four times a day or as directed. blood-glucose meter (FreeStyle Lite Meter kit) As Directed 4 times a day ergocalciferol (vitamin D2) (Vitamin D2) 1,250 mcg PO QWEEK ibuprofen 800 mg PO TID PRN 90 days insulin lispro (Humalog KwikPen (U-100) Insulin) 1 sliding scale dose subcut QIDACHS MDD 30 units lancets (FreeStyle Lancets) Test four times a day or as directed. metformin 500 mg PO BID 90 days metoprolol succinate ER 25 mg PO DAILY zpmaiknips-xuetdltsg-ucxnoyyhy 40-5-25 mg 1 tab PO DAILY pantoprazole 40 mg PO DAILY pen needle, diabetic Use four times a day or as directed. sucralfate 1 g PO DAILY Tobacco use date assessed: 04/21/25 Fall risk assessment: No Falls in past year Last assessed Fall Risk: 04/21/25 Dental Screening Dental Screen Date: 04/21/25 Did you have a dental visit in the last 12 months?: No Did you have a dental problem in the last 6 months where you did not have access to dental care?: No Was dental information given to patient?: No HPI 4mth f/u HPI Details Patient comes in today for her follow up visit States that she feels okay She denies any headaches or dizziness Denies any chest pains, no SOB No nausea/vomiting, no abdominal pain No change in bowel habits noted She is still experiencing on and off right ankle pain and would like to know if her ankle x-rays done back in November 2024 showed anything out of the ordinary to help explain her pain She had right ankle surgery about 20 years ago following an injury and fracture of the ankle and had screws inserted into her ankle back then She had her follow up labs done last week - to discuss her results [facility] Medical History Elevated LFTs Pure hypercholesterolemia Diabetes mellitus SVT (supraventricular tachycardia) (Unknown) Obesity (BMI 30-39.9) Vitamin D deficiency GERD (gastroesophageal reflux disease) Migraine Benign essential hypertension Surgical History History of colonoscopy (~05/28/19) History of ankle surgery S/P appendectomy S/P breast biopsy S/P cholecystectomy Family History Father Heart disease Hypertension Mother Heart disease Hypertension Diabetes mellitus Maternal Grandmother No problems noted. Maternal Grandfather No problems noted. Paternal Grandfather No problems noted. 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 1. Little interest or pleasure in doing things: not at all 2. Feeling down, depressed, or hopeless: not at all 3. Trouble falling or staying asleep, or sleeping too much: not at all 4. Feeling tired or having little energy: not at all 5. Poor appetite or overeating: not at all 6. Feeling bad about yourself - or that you are a failure or have let yourself or your family down: not at all 7. Trouble concentrating on things, such as reading the newspaper or watching television: not at all 8. Moving or speaking so slowly that other people could have noticed. Or the opposite - being so fidgety or restless that you have been moving around a lot more than usual: not at all 9. Thoughts that you would be better off or of hurting yourself in some way: not at all Total score: 0 Depression Screening Interpretation: Negative Depression Screening Done: Yes 67185 - PHQ-9 Billing: Yes Source: Developed by Drs. David Briones, Nury Britton, Shabbir Knox and colleagues, with an educational jean claude from [employer]. Thrive Questionnaire Date Thrive assessed: 04/21/25 I am a: Patient What is your living situation today?: I have a steady place to live Within the past 12 months, did the food you bought not last and you didn't have the money to get more?: Never true Within the past 12 months, did you worry whether your food would run out before you got money to buy more?: Never true Do you have trouble paying for medicines?: No Do you have trouble getting transportation to medical appointments?: No Do you have trouble paying your heating and electricity bill?: No Do you have trouble taking care of your child, family member or friend?: No Do you have trouble with day-to-day activities such as bathing, preparing meals, shopping, managing finances, etc.?: No Are you currently unemployed and looking for a job?: No Are you interested in more education?: No Please select the resources that you would like help with: None Currently or been in a relationship where the following occur: No concerns reported THRIVE Score: 0 AUDIT C Alcohol Use Questionnaire (AUDIT-C) 1. How often do you have a drink containing alcohol?: Never 3. How often do you have six or more drinks on one occasion?: Never Total Score: 0 Score Reviewed/Action Taken: Yes RAMON-7 AMB Questionnaire RAMON-7 Date RAMON - 7 assessed: 04/21/25 Feeling nervous, anxious, or on edge: 0 = Not at all Not being able to stop or control worryin = Not at all Worrying too much about different things: 0 = Not at all Trouble relaxin = Not at all Being so restless that it is hard to sit still: 0 = Not at all Becoming easily annoyed or irritable: 0 = Not at all Feeling afraid as if something awful might happen: 0 = Not at all Total RAMON-7 score (0-4 normal; 5-9 mild; 10-14 moderate; 15-21 severe): 0 Source: Developed by Drs. David Briones, Nury Britton, Shabbir Knox and colleagues, with an educational jean claude from [employer]. Review of Systems Const Denies chills, Denies fatigue, Denies fever(s) and Denies headache(s) ENT Denies dysphagia, Denies dizziness, Denies otalgia, Denies headache(s), Denies neck pain, Denies odynophagia and Denies sore throat Card Denies chest pain, Denies rapid heart rate, Denies palpitations and Denies dyspnea Resp Denies chest congestion, Denies cough and Denies dyspnea GI Denies abdominal pain, Denies constipation, Denies dysphagia, Denies heartburn, Denies diarrhea, Denies nausea, Denies odynophagia and Denies vomiting Denies difficulty voiding, Denies dysuria and Denies urinary urgency Musc Denies back pain, Reports arthralgias (in the right ankle, on and off) and Denies neck pain Skin/Breast Denies rash Neuro Denies dizziness, Denies headache(s) and Denies paresthesias Psych Denies anxiety and Denies depression Endo Denies fatigue and Denies palpitations Hunter/Lymph Denies easy bruising Physical exam (Primary Care) Vital Signs: Last Vital Signs Pulse 61 04/21/25 09:46 BP 122/78 04/21/25 09:46 Pulse Ox 97 04/21/25 09:46 Oxygen Delivery Method Room Air 04/21/25 09:46 BMI result Body Mass Index 33.3 Tobacco/Smoking Status: Tobacco use Status Tobacco use date assessed 04/21/25 04/21/25 09:51 Patient Tobacco Use Status Former Tobacco user 04/21/25 09:51 e-Cigarette/Vaping Use Never Used 04/21/25 09:51 PHQ-9: PHQ-9 Score PHQ-9: Total score 0 04/21/25 09:51 Depression Screening Interpretation: Negative Thrive Assessment: Date of Thrive Assessment Date Thrive assessed 04/21/25 07 09:51 Currently or been in a relationship where the following occur: No concerns reported Const General: no acute distress and alert HENMT Ears: TM's normal bilaterally and EAC's normal Throat: Yes posterior oropharynx normal and Yes tonsils normal (no TP congestion) Neck Neck: Yes supple and No lymphadenopathy Thyroid: Thyroid normal Resp Auscultation: clear to auscultation bilaterally, no rales and no wheezes Cardio Rate: regular rate Rhythm: regular rhythm Heart sounds: no murmurs GI Palpation (GI): Soft to palpation and nontender Auscultation: normal bowel sounds General: Yes no CVA tenderness Back/Spine/Pelvis Back: no CVA tenderness Thoracic/Lumbar Spine: No lumbar spinal tenderness Skin Rashes: no rashes Extrem General: Yes no clubbing, cyanosis or edema Right lower extremity: ankle Details: tenderness Location: of the lateral malleolus, of the medial malleolus and posteriorly; no swelling Results Reviewed Results Reviewed: Laboratory Tests 04/13/25 04/13/25 07:51 08:00 WBC 7.1 Hgb 11.7 L Hct 35.7 L Plt Count 258 Sodium 142 Potassium 3.7 Creatinine 0.67 Estimated GFR > 60 Fasting Glucose 106 H Hemoglobin A1c % 5.8 Calcium 9.5 AST 48 H ALT 60 H Triglycerides 80 Cholesterol 150 LDL Cholesterol, Calc 81 HDL Cholesterol 53 25-OH Vitamin D Total 91.5 TSH 1.27 Ur Specific [place] 1.020 Urine Protein Trace Urine Glucose (UA) Negative Urine Blood Negative Urine Nitrite Negative Ur Leukocyte Esterase Negative Microalb/Creat Ratio 48.8 H Coding Level of Care Code Est Pt Level 4 (07723) Complex EM visit Add On G2211 Diagnoses Type 2 diabetes mellitus without complication, with long-term current use of insulin E11.9; Z79.4 Diabetes mellitus type: type 2 Diabetes mellitus residential insulin use: with residential use Diabetes mellitus complication status: without complication Benign essential hypertension I10 Palpitations R00.2 Migraine without status migrainosus, not intractable, unspecified migraine type G43.909 Migraine type: unspecified Status migrainosus presence: without status migrainosus Intractability: not intractable Gastroesophageal reflux disease without esophagitis K21.9 Esophagitis presence: without esophagitis Elevated LFTs R79.89 Bile salt-induced diarrhea K90.89 Right ankle pain, unspecified chronicity M25.571 Chronicity: unspecified Vitamin D deficiency E55.9 Nephrolithiasis N20.0 Obesity (BMI 30-39.9) E66.9 Additional Codes PHQ-9 - 90738 - PHQ-9 Billing: Yes ([id number]) Assessment & Plan Assessment & Plan (1) Diabetes mellitus: Code(s): E11.9 - Type 2 diabetes mellitus without complications Category: Medical Qualifiers: Diabetes mellitus type: type 2 Diabetes mellitus residential insulin use: with residential use Diabetes mellitus complication status: without complication Qualified Code(s): E11.9 - Type 2 diabetes mellitus without complications; 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 Plan: Her HgbA1c was at 5.8% on her labs done last week (was at 6.0% a few months ago) - goal is ideally <6.5% so she IS at goal Reinforced diabetic diet Continue Metformin 500 mg BID; she could not tolerate Farxiga 10 mg QD due to increased urinary symptoms Will recheck her labs in 4 months for follow up (2) Benign essential hypertension: Code(s): I10 - Essential (primary) hypertension Category: Medical Plan: Reinforced low sodium diet - goal is systolic BP of at least 120 to 130 mm or less Continue Yjdafayvoe-Usteykqxfq-TOUR 40-5-25 mg QD and Metoprolol ER 25 mg QD (3) Palpitations: Comment: Dx with SVT, 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 Code(s): R00.2 - Palpitations Category: Medical Plan: She has been seen and followed by cardiology for this issue in the past but she has not been back to see them in over 3 years She was supposedly advised at her last appointment with them that she can just see them on an as-needed basis Echocardiogram done in 2017 showed normal LVEF, normal wall motion with no si gnificant valvular abnormality; 30-day LUAN showed only sinus rhythm with no evidence of arrhythmias She was initially trialed on Metoprolol ER, which she states has kept her arrhythmias and palpitations mostly under control with only occasional episodes felt since Continue Metoprolol ER 25 mg QD (4) Migraine: Code(s): G43.909 - Migraine, unspecified, not intractable, without status migrainosus Category: Medical Qualifiers: Migraine type: unspecified Status migrainosus presence: without status migrainosus Intractability: not intractable Qualified Code(s): G43.909 - Migraine, unspecified, not intractable, without status migrainosus Plan: Stable/controlled Reinforced avoidance of migraine triggers Continue Ibuprofen 800 mg PRN for symptomatic relief (5) GERD (gastroesophageal reflux disease): Code(s): K21.9 - Gastro-esophageal reflux disease without esophagitis Category: Medical Qualifiers: Esophagitis presence: without esophagitis Qualified Code(s): K21.9 - Gastro-esophageal reflux disease without esophagitis Plan: Dietary restrictions reinforced Continue Pantoprazole 40 mg QD (6) Elevated LFTs: Code(s): R79.89 - Other specified abnormal findings of blood chemistry Category: Medical Plan: Patient is advised that her LFTs remain elevated on her recent labs and have improved only slightly from before These are again likely related to her weight (hepatosteatosis) and she has been advised that losing weight should help get these back to normal but if her LFTs do not improve then remain elevated over the next few months, then we should consider getting an abdominal ultrasound for further evaluation We will continue to monitor her LFTs regularly (7) Bile salt-induced diarrhea: Code(s): 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 Category: Medical Plan: Primarily due to her cholecystectomy Continue Carafate 1 gm QD Patient is again reminded to avoid eating a lot fried, greasy or oily foods to minimize her symptoms - she appears to be doing well so far with regards to her GI symptoms (8) Right ankle pain: Code(s): M25.571 - Pain in right ankle and joints of right foot Category: Medical Qualifiers: Chronicity: unspecified Qualified Code(s): M25.571 - Pain in right ankle and joints of right foot Plan: S/P ORIF in 09/[address] Calvillo for a trimalleolar fracture and there are concerns of possible hardware loosening or migration X-rays of the right ankle done a few months ago revealed (+) findings of prior lateral plate and screw fixation of the lateral malleolus, with no hardware loosening or complications. The ankle mortise is intact and the talar dome is normal. There are mild degenerative changes of the ankle joint. No evidence of joint effusion, with (+) small plantar calcaneal spur (9) Vitamin D deficiency: Code(s): E55.9 - Vitamin D deficiency, unspecified Category: Medical Plan: Continue Vitamin D2 36983 units once a week (10) Nephrolithiasis: Code(s): N20.0 - Calculus of kidney Category: Medical Plan: (+) 7 mm calculus at the left UVJ with hydronephrosis seen on CT last year (2023) S/P cystoscopy, stone basketing from left ureteral orifice and left stent placement Patient states that she has not had any flare ups of her urinary tract symptoms or issues with kidney stones since Her most recent renal US showed only a 2 mm non-obstructing right renal calculus with no other abnormalities seen She will be getting a repeat renal US next year prior to her urology follow up appt Follow up with urology as scheduled (11) Obesity (BMI 30-39.9): Code(s): E66.9 - Obesity, unspecified Category: Medical Plan: Reinforced diet/exercise as tolerated/lose weight Plan Follow up in 4 months Orders: Orders Lipid Panel 4 Months E78.00 - Pure hypercholesterolemia, unspecified Microalbumin, Random (w Creat) 4 Months E11.9 - Type 2 diabetes mellitus without complications Hemoglobin A1c 4 Months E11.9 - Type 2 diabetes mellitus without complications UA CC w/rflx Micro + Cult 4 Months R30.0 - Dysuria Complete Blood Count Auto Diff 4 Months D64.9 - Anemia, unspecified Comprehensive [place]. Panel Fast 4 Months E78.00 - Pure hypercholesterolemia, unspecified TSH reflex Free T4 4 Months E78.00 - Pure hypercholesterolemia, unspecified Vitamin D 25-OH Total 4 Months E55.9 - Vitamin D deficiency, unspecified
[2025-04-21 09:46] VITALS: BP 122/78; PULSE 61; O2SAT 97; BMI 33.3
--- OUTSIDE RECORDS SUMMARY | 2025-04-21 10:07 | XMS_ITS | Patient Health Record ---
Author Organization [facility] Address [address] [place] [id number] Care Team Providers Care Knuckler Name Role Phone David Villaseñor Unavailable [phone] Reason For Referral No Information Plan Of Treatment No Information
== END 2025-04-21 10:39 | disposition home or self-care (01) ==
LOC: HO.HMCH 09:37
PROVIDERS: PCP Internal Medicine; Visit Provider Internal Medicine
DX: E11.9 Type 2 diabetes mellitus without complications (principal); Z79.4 Long term (current) use of insulin; E66.9 Obesity, unspecified; Z68.33 Body mass index [BMI] 33.0-33.9, adult; I10 Essential (primary) hypertension; R00.2 Palpitations; G43.909 Migraine, unspecified, not intractable, without status migrainosus; K21.9 Gastro-esophageal reflux disease without esophagitis; R79.89 Other specified abnormal findings of blood chemistry; K90.89 Other intestinal malabsorption; M25.571 Pain in right ankle and joints of right foot; E55.9 Vitamin D deficiency, unspecified

== ENCOUNTER → 2025-04-21 09:36 | Outpatient (BNVA) | payer BC, SELFPAY | PROVIDERS: PCP Internal Medicine; Visit Provider Internal Medicine | DX: E11.9 Type 2 diabetes mellitus without complications (principal); I10 Essential (primary) hypertension; R00.2 Palpitations; G43.909 Migraine, unspecified, not intractable, without status migrainosus; K21.9 Gastro-esophageal reflux disease without esophagitis; R79.89 Other specified abnormal findings of blood chemistry; K90.89 Other intestinal malabsorption; M25.571 Pain in right ankle and joints of right foot; E55.9 Vitamin D deficiency, unspecified; N20.0 Calculus of kidney; E66.9 Obesity, unspecified; Z68.33 Body mass index [BMI] 33.0-33.9, adult; Z79.4 Long term (current) use of insulin; Z79.899 Other long term (current) drug therapy; Z13.31 Encounter for screening for depression; Z13.30 Encounter for screening examination for mental health and behavioral disorders, unspecified | CPT/HCPCS: 96127 ==

== ENCOUNTER 2025-05-28 14:16 | Outpatient (REF) | payer BC, SELFPAY ==
--- NOTE | ~2025-05-28 | MM_ITS ---
EXAMINATION: MM SCREENING DIGITAL BREAST TOMOSYNTHESIS, BILATERAL CLINICAL INFORMATION: Screening. Asymptomatic. COMPARISON: Comparison made to multiple prior, most recent May 18, 2024, and most remote February 15, 2020. TECHNIQUE: Digital breast tomosynthesis is performed in both the craniocaudal and mediolateral oblique views along with computer-aided detection (CAD). FINDINGS: BREAST COMPOSITION: The breasts are heterogeneously dense, which may obscure small masses (ACR BI-RADS breast composition Category c). BILATERAL BREASTS: History of bilateral excisional biopsies. No significant masses, suspicious calcifications or other abnormalities are seen in either breast. MM/MM tomosynthesis screening BI IMPRESSION: BILATERAL BREASTS: Benign, no mammographic evidence of malignancy. Normal interval follow-up is recommended in 12 months. ASSESSMENT: BI-RADS 2 - Benign Findings RECOMMENDATION: Routine annual mammography screening. FOLLOW-UP: 1 year F/U This examination should not preclude the clinical evaluation of a suspicious palpable abnormality. This patient's information was entered into a reminder system with a target due date for their next mammogram. Electronically signed by: Christiano Silva MD 06/01/2025 03:17 PM EDT
--- OUTSIDE RECORDS SUMMARY | 2025-05-28 14:18 | XMS_ITS | Patient Health Record ---
Author Organization [facility] Address [address] [place] [phone] Care Team Providers Care Transportation Economics Teacher Name Role Phone David Villaseñor Unavailable [phone] Reason For Referral No Information Plan Of Treatment No Information
== END 2025-05-28 14:17 | disposition home or self-care (01) ==
LOC: HO.MAMMO 14:16
PROVIDERS: PCP Internal Medicine; Visit Provider Internal Medicine
DX: Z12.31 Encounter for screening mammogram for malignant neoplasm of breast (principal)
CPT/HCPCS: 77063; 77067

== ENCOUNTER → 2025-05-28 14:30 | Outpatient (BNV) | payer BC, SELFPAY | PROVIDERS: PCP Internal Medicine; Visit Provider Radiology Body Imaging | DX: Z12.31 Encounter for screening mammogram for malignant neoplasm of breast (principal) | CPT/HCPCS: 77063; 77067 ==

== ENCOUNTER 2025-06-15 08:22 | Outpatient (REF) | payer BC, SELFPAY ==
--- NOTE | ~2025-06-15 | US_ITS ---
EXAMINATION: US RETROPERITONEAL LIMITED (RENAL ONLY) CLINICAL INFORMATION: Calculus of kidneys.. COMPARISON: Ultrasound kidney bilateral 06/05/2024 TECHNIQUE: Retroperitoneal imaging of kidneys is performed FINDINGS: RIGHT KIDNEY: 11.1 x 5.2 7.1 cm (SAG x AP x TRV). The kidney is normal in size, contour, and echogenicity. Renal cortical thickness is normal. No calculi or focal parenchymal lesions. There is mild pelvic fullness or extrahepatic renal pelvis but no marisa hydronephrosis suspected.. LEFT KIDNEY: 11.8 x 5.7 x 5.4 cm (SAG x AP x TRV). The kidney is normal in size, contour, and echogenicity. Renal cortical thickness is normal. No calculi or focal parenchymal lesions. No hydronephrosis. There are 2 echogenic stones in the upper pole measuring 0.9 x 0.6 x 0.9 cm and lower pole measuring 0.4 x 0.4 x 0.3 cm. US/US renal BI IMPRESSION: There is mild right renal pelvic fullness. Nonobstructive echogenic stones left kidney without hydronephrosis.. Stones in the left kidney are new compared to last exam 06/02/2024 Electronically signed by: Nathanael Muir MD 06/15/2025 10:14 AM EDT
--- OUTSIDE RECORDS SUMMARY | 2025-06-15 09:00 | XMS_ITS | Patient Health Record ---
Author Organization [facility] Address [address] [place] [id number] Care Team Providers Care Steam Roller Operator Name Role Phone David Villaseñor Unavailable [phone] Reason For Referral No Information Plan Of Treatment No Information
== END 2025-06-15 08:23 | disposition home or self-care (01) ==
LOC: HO.HMGCX 08:22
PROVIDERS: PCP Internal Medicine; Visit Provider Urology
DX: N20.0 Calculus of kidney (principal)
CPT/HCPCS: 76775

== ENCOUNTER → 2025-06-15 08:24 | Outpatient (BNV) | payer BC, SELFPAY | PROVIDERS: PCP Internal Medicine; Visit Provider Radiology Diagnostic Radiology | DX: N20.0 Calculus of kidney (principal) | CPT/HCPCS: 76775 ==

== ENCOUNTER 2025-06-24 07:42 | Outpatient (AMB) | payer BC, SELFPAY ==
--- OUTSIDE RECORDS SUMMARY | 2025-06-24 07:46 | XMS_ITS | Patient Health Record ---
Author Organization [facility] Address [address] [place] [phone] Care Team Providers Care Hospice Art Therapist Name Role Phone David Villaseñor Unavailable [phone] Reason For Referral No Information Plan Of Treatment No Information
--- NOTE | 2025-06-24 07:49 | MHC.OFFVIS ---
Intake Visit Reasons: 1y/US Intake Note: Patient is Present for Follow Up Ultrasound Urology Med: None Antibiotic Allergy: None Blood Thinner:None Imaging done : 06/15/2025 Patient Services Clerk Required: No Accompanied by: Self / Same As Patient Allergies carbamazepine (From Tegretol) Allergy (Intermediate, Verified 06/24/25 10:37) RASH divalproex sodium (From Depakote) Allergy (Intermediate, Verified 06/24/25 10:37) RASH Iodinated Contrast Media (IV Dye, Iodine Containing) Allergy (Intermediate, Verified 06/24/25 10:37) HIVES dapagliflozin (From Farxiga) Adverse Reaction (Severe, Verified 06/24/25 10:37) loss of bladder control Medication List - Last Reconciled 06/24/25 by GEORGE Sharma alcohol swabs 1 pad topical QIDACHS blood sugar diagnostic (FreeStyle Lite Strips) Test four times a day or as directed. blood-glucose meter (FreeStyle Lite Meter kit) As Directed 4 times a day ergocalciferol (vitamin D2) (Vitamin D2) 1,250 mcg PO QWEEK ibuprofen 800 mg PO TID PRN 90 days insulin lispro (Humalog KwikPen (U-100) Insulin) 1 sliding scale dose subcut QIDACHS MDD 30 units lancets (FreeStyle Lancets) Test four times a day or as directed. metformin 500 mg PO BID 90 days metoprolol succinate ER 25 mg PO DAILY dhnlsikioo-yqzvteavb-adzdljhli 40-5-25 mg 1 tab PO DAILY pantoprazole 40 mg PO DAILY pen needle, diabetic Use four times a day or as directed. sucralfate 1 g PO DAILY HPI Comments Details: Monique is a pleasant 64-year-old female patient Dr. Guy who is accompanied by her significant other at today's office visit. She has a past medical history of elevated LFTs, hypercholesteremia, diabetes, SVT, obesity, vitamin-D deficiency, GERD, migraine, and hypertension. She presents to the office today for follow-up of her nephrolithiasis. In discussion with the patient today she reports to be doing and feeling well. She reports noting at times she needs to double void to assist with bladder emptying. She has a longstanding history of nephrolithiasis and recent renal imaging results reviewed with the patient today. 07/08 bilateral kidneys are normal in size, contour, and echogenicity. Mild pelvic fullness with no marisa hydronephrosis noted in the right renal pelvis. Left kidney with no lesions or hydronephrosis. There are 2 echogenic stones in the upper pole measuring 0.9 x 0.6 x 0.9 cm and lower pole measuring 0.4 x 0.4 x 0.3 cm. She reports she is drinking plenty of water daily. We did discuss new stones in the left kidney compared to previous imaging. We also discussed previous stone analysis 03/04 calcium oxalate dihydrate 80%. We did discussed increase in stone burden and further workup to include Litholink and labs. We also discussed further interventions of incomplete bladder emptying and risks and benefits of these interventions. All questions were answered. She otherwise offers no other issues or concerns at this time. PREVIOUS OFFICE NOTE: Encourage fluids Continue vitamin B6 Lemon water Nephrolithiasis Left distal ureteric stone - with intervention 03/04 Prior stone passage without intervention Stone analysis - 03/04 calcium oxalate dihydrate 80% Imaging - 03/04 distal left ureteric stone with hydroureteronephrosis - 05/04 renal ultrasound question 4 mm right - 11/05 renal ultrasound no evidence of stones - 12/07 renal ultrasound possible small stone 2 mm right, nothing left 24 hour urine - 05/04 borderline oxalate, and good volume, low calcium, moderate salt - dietary advice provided Therapeutic plan - 12 month follow-up imaging [facility] Medical History Elevated LFTs Pure hypercholesterolemia Diabetes mellitus SVT (supraventricular tachycardia) (Unknown) Obesity (BMI 30-39.9) Vitamin D deficiency GERD (gastroesophageal reflux disease) Migraine Benign essential hypertension Surgical History History of colonoscopy (~05/28/19) History of ankle surgery S/P appendectomy S/P breast biopsy S/P cholecystectomy Family History Father Heart disease Hypertension Mother Heart disease Hypertension Diabetes mellitus Maternal Grandmother No problems noted. Maternal Grandfather No problems noted. Paternal Grandfather No problems noted. 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 Cognitive needs: No Hearing needs: No Vision needs: No Review of Systems Const All systems reviewed & are unremarkable except as noted in HPI and below Physical Exam Const General: cooperative, healthy appearing, comfortable, no acute distress, well developed, alert and awake Orientation/consciousness: patient oriented x3 Limitations: no limitations HEENT Head: Yes normal to inspection, Yes normocephalic and Yes atraumatic Ears: hearing grossly normal bilaterally Eyes General: appearance normal, both eyes and all related structures Neck Neck: Yes normal visual inspection and Yes trachea midline Chest Chest palpation & inspection: normal inspection of the chest Resp Effort & Inspection: normal respiratory effort and able to speak in complete sentences Cardio Rate: regular rate GI Inspection: Yes normal to inspection General: Yes no CVA tenderness Back/Spine/Pelvis Back: no CVA tenderness Skin General skin exam: no rashes or lesions noted Neuro General: patient oriented x3 Extrem General: Yes normal to inspection Psych Appearance: grossly normal and well kempt Mental Status: mental status grossly normal Speech and movement: Normal speech and movement present and Clear speech present Affect: normal affect Attitude: cooperative Thought process: Normal thought process present Thought content: Normal thought content present Insight: Fair insight present (Psych) Judgement: Fair judgement present (Psych) Results AMB Urinalysis, Automated UA Leukoctes 125 Concepcion/uL Last Edit by JARAD Avalos on 06/24/25 08:14 UA Nitrite Negative Last Edit by JARAD Avalos on 06/24/25 08:14 UA Urobilinogen 0.2 mg/dL Last Edit by JARAD Avalos on 06/24/25 08:14 UA Protein 15 mg/dL Last Edit by JARAD Avalos on 06/24/25 08:14 UA pH 6.0 Last Edit by JARAD Avalos on 06/24/25 08:14 UA Blood 0 Brian/uL Last Edit by JARAD Avalos on 06/24/25 08:14 UA Specific [place] 1.025 Last Edit by JARAD Avalos on 06/24/25 08:14 UA Ketone Negative Last Edit by JARAD Avalos on 06/24/25 08:14 UA Bilirubin 1 mg/dL Last Edit by JARAD Avalos on 06/24/25 08:14 UA Glucose 0 mg/dL Last Edit by JARAD Avalos on 06/24/25 08:14 Results Reviewed Results Reviewed: Laboratory Last Values Urine pH (Auto) 6.0 06/24/25 08:14 Specific [place] (Auto) 1.025 06/24/25 08:14 Urine Protein (Auto) 15 mg/dL 06/24/25 08:14 Glucose (UA)(Auto) 0 mg/dL 06/24/25 08:14 Urine Ketones (Auto) Negative 06/24/25 08:14 Urine Blood (Auto) 0 Brian/uL 06/24/25 08:14 Urine Nitrite (Auto) Negative 06/24/25 08:14 Urine Bilirubin (Auto) 1 mg/dL 06/24/25 08:14 Urine Urobilinogen (Auto) 0.2 mg/dL 06/24/25 08:14 Leukocyte Esterase (Auto) 125 Concepcion/uL 06/24/25 08:14 Date of Service: 06/15/25 Procedure(s): US renal BI FINDINGS: RIGHT KIDNEY: 11.1 x 5.2 7.1 cm (SAG x AP x TRV). The kidney is normal in size, contour, and echogenicity. Renal cortical thickness is normal. No calculi or focal parenchymal lesions. There is mild pelvic fullness or extrahepatic renal pelvis but no marisa hydronephrosis suspected.. LEFT KIDNEY: 11.8 x 5.7 x 5.4 cm (SAG x AP x TRV). The kidney is normal in size, contour, and echogenicity. Renal cortical thickness is normal. No calculi or focal parenchymal lesions. No hydronephrosis. There are 2 echogenic stones in the upper pole measuring 0.9 x 0.6 x 0.9 cm and lower pole measuring 0.4 x 0.4 x 0.3 cm. IMPRESSION: There is mild right renal pelvic fullness. Nonobstructive echogenic stones left kidney without hydronephrosis. Stones in the left kidney are new compared to last exam 06/02/2024 Assessment & Plan Assessment & Plan (1) Nephrolithiasis: Code(s): N20.0 - Calculus of kidney Category: Medical Plan In office urinalysis results reviewed with the patient today; as noted above. Recent renal imaging results reviewed with the patient today; as noted above. We did discussed potential causes of incomplete bladder emptying as well as further interventions and risks and benefits of these interventions. Will continue with double voiding. We also discussed new stone burden and further interventions to include Litholink and labs. All questions were answered Continue drinking plenty of water daily. Continue adding 1 oz of lemon juice to water daily. We also discussed vitamin B6. Follow-up in 3 months with Litholink and labs; or sooner with any issues, concerns, and or questions. Orders: Orders Uric Acid Today N20.0 - Calculus of kidney Vitamin D 25-OH Total Today N20.0 - Calculus of kidney Magnesium Today N20.0 - Calculus of kidney Basic Metabolic Panel Today N20.0 - Calculus of kidney AMB Urinalysis Automated Today Z13.9 - Encounter for screening, unspecified URORISK Today N20.0 - Calculus of kidney Phosphorus Today N20.0 - Calculus of kidney Calcium Today N20.0 - Calculus of kidney Parathyroid Hormone Intact Today N20.0 - Calculus of kidney Patient Instructions: The patient had an opportunity to ask questions regarding the treatment plan. All questions were answered. Physical exam, labs, and imaging were discussed and reviewed in detail. As well as risks, benefits, and discussion of treatment choices. No major barriers to understanding were identified. The patient expressed understanding and agreement with the above treatment plan. The patient was made aware they should contact our office by phone for worsening of their current condition, the appearance of new symptoms, or with any questions or concerns. Compliance is encouraged with any medications and follow up testing that is ordered. It is a privilege to be allowed the opportunity to participate in? your urological care.? Again, if you have any questions or concerns If you have any questions or concerns please do not hesitate to contact me. The office is [phone]. This note is constructed using voice recognition software. While every effort has been made to ensure accuracy chief unit forester errors may have been included. Yours sincerely, María Elena Mohamud, DISTILLERY SUPERVISOR-BC Coding Level of Care Code Est Pt Level 3 (09707) Diagnoses Nephrolithiasis N20.0
== END 2025-06-24 08:32 | disposition home or self-care (01) ==
LOC: HO.HUSH 07:42
PROVIDERS: PCP Internal Medicine; Visit Provider Nurse Practitioner Family
DX: N20.0 Calculus of kidney (principal); Z13.9 Encounter for screening, unspecified
CPT/HCPCS: 99213

== ENCOUNTER → 2025-06-24 07:42 | Outpatient (BNVA) | payer BC, SELFPAY | PROVIDERS: PCP Internal Medicine; Visit Provider Nurse Practitioner Family | DX: N20.0 Calculus of kidney (principal); Z13.9 Encounter for screening, unspecified | CPT/HCPCS: 81003 ==

== ENCOUNTER 2025-08-24 06:30 | Outpatient (REF) | payer BC, SELFPAY ==
--- OUTSIDE RECORDS SUMMARY | 2025-08-24 06:32 | XMS_ITS | Patient Health Record ---
Author Organization [facility] Address [address] [place] [phone] Care Team Providers Care Chainstitch Hemmer Name Role Phone David Villaseñor Unavailable [phone] Reason For Referral No Information Plan Of Treatment No Information
[2025-08-24 10:27] LABS: MANUAL DIFF FLAG NO
[2025-08-24 10:33] LABS: Appearance Urine Clear; Glucose Urine UA Negative (Negative); PH 5.5 (5.0-9.0); Specific Gravity - Urine 1.020 (1.005-1.025); UMIC TRIGGER UACC YES
[2025-08-24 10:41] LABS: Hematocrit 37.0 % (37.0-47.0); Hemoglobin 11.9 g/dl (12.0-16.0); Imm Gran Abs Auto 0.05 X10*3/uL (0.00-0.03); Imm Gran Pct Auto 0.7 % (0.0-0.4); Lymphocytes Absolute Auto 2.7 X10*3/uL (1.2-4.9); Mean Corpuscular HGB Conc 32.2 g/dl (31.0-35.0); Mean Corpuscular Hemoglobin 29.3 pg (27.0-33.0); Mean Corpuscular Volume 91.1 fL (80.0-98.0); NRBC Abs Auto 0.000 X10*3/uL (0.0-0.012); NRBC Pct Auto 0.0 /100WBC (0.0-0.2); Platelet Count 267 X10*3/uL (160-400); Red Blood Count 4.06 X10*6/uL (4.20-5.50); White Blood Count 7.7 X10*3/uL (4.8-10.8)
[2025-08-24 11:01] LABS: Microalbum/Creatinine Ratio Ur 49.8 ug/mg cr (<30)
[2025-08-24 11:02] LABS: Albumin Level 4.6 g/dL (3.5-5.0); Alkaline Phosphatase 72 U/L (39-117); Anion Gap 13 (12-20); Aspartate Amino Transferase 32 U/L (5-31); Blood Urea Nitrogen 20 mg/dL (9-16); Calcium 9.9 mg/dL (8.4-10.2); Carbon Dioxide 27 mmol/L (22-29); Chloride 104 mmol/L (96-108); Cholesterol 155 mg/dL (<200); Estimated Glomerular Filt Rate > 60; HDL Cholesterol 58 mg/dL (>40); Potassium 3.6 mmol/L (3.3-5.1); Sodium 140 mmol/L (135-145); Total Protein 7.7 g/dL (6.5-8.0); Triglycerides 81 mg/dL (<150)
[2025-08-24 11:10] LABS: Alanine Aminotransferase 33 U/L (0-31)
== END 2025-08-24 06:31 | disposition home or self-care (01) ==
LOC: HO.HMGCLDS 06:30
PROVIDERS: PCP Internal Medicine; Visit Provider Internal Medicine
DX: E11.9 Type 2 diabetes mellitus without complications (principal); E78.00 Pure hypercholesterolemia, unspecified; E55.9 Vitamin D deficiency, unspecified; D64.9 Anemia, unspecified
CPT/HCPCS: 36415; 80053; 80061; 81001; 82043; 82306; 82570; 83036; 84443; 85025

== ENCOUNTER 2025-08-30 09:50 | Outpatient (AMB) | payer BC, SELFPAY ==
--- NOTE | 2025-08-30 09:52 | MHC.PC.OV ---
Vital Signs 08/30/25 10:06 Height 5 ft 4 in Weight 190 lb BMI 32.6 BP 120/68 Blood Pressure Location Lt brachial Position Sitting Pulse 62 Pulse Source Pulse Oximeter Temp 97.1 F Temp Source Temporal Artery Scan Pulse Oximetry (%) 95 Oxygen Delivery Method Room Air Intake Visit Reasons: 4mth f/u Intake Note: Patient is here to follow up on DM, HTN, GERD. Dietitian Teaching Required: No Knockout Man: Not Required per policy Accompanied by: Self / Same As Patient Allergies carbamazepine (From Tegretol) Allergy (Intermediate, Verified 08/30/25 10:09) RASH divalproex sodium (From Depakote) Allergy (Intermediate, Verified 08/30/25 10:09) RASH Iodinated Contrast Media (IV Dye, Iodine Containing) Allergy (Intermediate, Verified 08/30/25 10:09) HIVES dapagliflozin (From Farxiga) Adverse Reaction (Severe, Verified 08/30/25 10:09) loss of bladder control Medication List - Last Reconciled 08/30/25 by Portillo Guy MD alcohol swabs 1 pad topical QIDACHS blood sugar diagnostic (FreeStyle Lite Strips) Test four times a day or as directed. blood-glucose meter (FreeStyle Lite Meter kit) As Directed 4 times a day ergocalciferol (vitamin D2) (Vitamin D2) 1,250 mcg PO QWEEK ibuprofen 800 mg PO TID PRN 90 days lancets (FreeStyle Lancets) Test four times a day or as directed. metformin 500 mg PO BID 90 days metoprolol succinate ER 25 mg PO DAILY akkbjkzyjn-kmtelzxli-nrcnbwnef 40-5-25 mg 1 tab PO DAILY pantoprazole 40 mg PO DAILY pen needle, diabetic Use four times a day or as directed. sucralfate 1 g PO DAILY Tobacco use date assessed: 08/30/25 Fall risk assessment: No Falls in past year Last assessed Fall Risk: 04/21/25 Dental Screening Dental Screen Date: 04/21/25 Did you have a dental visit in the last 12 months?: No Did you have a dental problem in the last 6 months where you did not have access to dental care?: No Was dental information given to patient?: No HPI 4mth f/u HPI Details Patient comes in today for her follow up visit States that she feels okay She denies any headaches or dizziness Denies any chest pains, no SOB No nausea/vomiting, no abdominal pain No change in bowel habits noted She had her follow up labs done last week - to discuss her results [facility] Medical History Elevated LFTs Pure hypercholesterolemia Diabetes mellitus SVT (supraventricular tachycardia) (Unknown) Obesity (BMI 30-39.9) Vitamin D deficiency GERD (gastroesophageal reflux disease) Migraine Benign essential hypertension Surgical History History of colonoscopy (~05/28/19) History of ankle surgery S/P appendectomy S/P breast biopsy S/P cholecystectomy Family History Father Heart disease Hypertension Mother Heart disease Hypertension Diabetes mellitus Maternal Grandmother No problems noted. Maternal Grandfather No problems noted. Paternal Grandfather No problems noted. 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 1. Little interest or pleasure in doing things: not at all 2. Feeling down, depressed, or hopeless: not at all 3. Trouble falling or staying asleep, or sleeping too much: not at all 4. Feeling tired or having little energy: not at all 5. Poor appetite or overeating: not at all 6. Feeling bad about yourself - or that you are a failure or have let yourself or your family down: not at all 7. Trouble concentrating on things, such as reading the newspaper or watching television: not at all 8. Moving or speaking so slowly that other people could have noticed. Or the opposite - being so fidgety or restless that you have been moving around a lot more than usual: not at all 9. Thoughts that you would be better off or of hurting yourself in some way: not at all Total score: 0 Depression Screening Interpretation: Negative Depression Screening Done: Yes 89529 - PHQ-9 Billing: Yes Source: Developed by Drs. David Briones, Nury Britton, Shabbir Knox and colleagues, with an educational jean claude from [employer]. Thrive Questionnaire Date Thrive assessed: 04/14/25 I am a: Patient What is your living situation today?: I have a steady place to live Within the past 12 months, did the food you bought not last and you didn't have the money to get more?: Never true Within the past 12 months, did you worry whether your food would run out before you got money to buy more?: Never true Do you have trouble paying for medicines?: No Do you have trouble getting transportation to medical appointments?: No Do you have trouble paying your heating and electricity bill?: No Do you have trouble taking care of your child, family member or friend?: No Do you have trouble with day-to-day activities such as bathing, preparing meals, shopping, managing finances, etc.?: No Are you currently unemployed and looking for a job?: No Are you interested in more education?: No Please select the resources that you would like help with: None Currently or been in a relationship where the following occur: No concerns reported THRIVE Score: 0 AUDIT C Alcohol Use Questionnaire (AUDIT-C) 1. How often do you have a drink containing alcohol?: Never 3. How often do you have six or more drinks on one occasion?: Never Total Score: 0 Score Reviewed/Action Taken: Yes RAMON-7 AMB Questionnaire RAMON-7 Date RAMON - 7 assessed: 04/21/25 Feeling nervous, anxious, or on edge: 0 = Not at all Not being able to stop or control worryin = Not at all Worrying too much about different things: 0 = Not at all Trouble relaxin = Not at all Being so restless that it is hard to sit still: 0 = Not at all Becoming easily annoyed or irritable: 0 = Not at all Feeling afraid as if something awful might happen: 0 = Not at all Total RAMON-7 score (0-4 normal; 5-9 mild; 10-14 moderate; 15-21 severe): 0 Source: Developed by Drs. David Briones, Nury Britton, Shabbir Knox and colleagues, with an educational jean claude from [employer]. Review of Systems Const Denies chills, Denies fatigue, Denies fever(s) and Denies headache(s) ENT Denies dysphagia, Denies dizziness, Denies otalgia, Denies headache(s), Denies neck pain, Denies odynophagia and Denies sore throat Card Denies chest pain, Denies rapid heart rate, Denies palpitations and Denies dyspnea Resp Denies chest congestion, Denies cough and Denies dyspnea GI Denies abdominal pain, Denies constipation, Denies dysphagia, Denies heartburn, Denies diarrhea, Denies nausea, Denies odynophagia and Denies vomiting Denies difficulty voiding, Denies dysuria and Denies urinary urgency Musc Denies back pain, Reports arthralgias (in the right ankle, on and off) and Denies neck pain Skin/Breast Denies rash Neuro Denies dizziness, Denies headache(s) and Denies paresthesias Psych Denies anxiety and Denies depression Endo Denies fatigue and Denies palpitations Hunter/Lymph Denies easy bruising Physical exam (Primary Care) Vital Signs: Last Vital Signs Temp 98.3 F 08/30/25 09:52 Pulse 91 08/30/25 09:52 BP 142/74 H 08/30/25 09:52 Pulse Ox 97 08/30/25 09:52 Oxygen Delivery Method Room Air 08/30/25 09:52 BMI result Body Mass Index 28.9 Tobacco/Smoking Status: Tobacco use Status Tobacco use date assessed 04/21/25 08/30/25 09:55 Patient Tobacco Use Status Former Tobacco user 08/30/25 09:55 e-Cigarette/Vaping Use Never Used 08/30/25 09:55 PHQ-9: PHQ-9 Score PHQ-9: Total score 0 08/30/25 09:55 Depression Screening Interpretation: Negative Thrive Assessment: Date of Thrive Assessment Date Thrive assessed 04/14/25 08/30/25 09:55 Currently or been in a relationship where the following occur: No concerns reported Const General: no acute distress and alert HENMT Ears: TM's normal bilaterally and EAC's normal Throat: Yes posterior oropharynx normal and Yes tonsils normal (no TP congestion) Neck Neck: Yes supple and No lymphadenopathy Thyroid: Thyroid normal Resp Auscultation: clear to auscultation bilaterally, no rales and no wheezes Cardio Rate: regular rate Rhythm: regular rhythm Heart sounds: no murmurs GI Palpation (GI): Soft to palpation and nontender Auscultation: normal bowel sounds General: Yes no CVA tenderness Back/Spine/Pelvis Back: no CVA tenderness Thoracic/Lumbar Spine: No lumbar spinal tenderness Skin Rashes: no rashes Extrem General: Yes no clubbing, cyanosis or edema Right lower extremity: ankle Details: tenderness Location: of the lateral malleolus, of the medial malleolus and posteriorly; no swelling Results Reviewed Results Reviewed: Laboratory Tests 08/24/25 06:39 WBC 7.7 Hgb 11.9 L Hct 37.0 Plt Count 267 Sodium 140 Potassium 3.6 Creatinine 0.77 Estimated GFR > 60 Fasting Glucose 110 H Hemoglobin A1c % 5.8 Calcium 9.9 AST 32 H ALT 33 H Triglycerides 81 Cholesterol 155 LDL Cholesterol, Calc 81 HDL Cholesterol 58 25-OH Vitamin D Total 90.9 TSH 0.94 Ur Specific [place] 1.020 Urine Protein Trace Urine Glucose (UA) Negative Urine Blood Negative Urine Nitrite Negative Ur Leukocyte Esterase Trace H Microalb/Creat Ratio 49.8 H Coding Level of Care Code Est Pt Level 4 (51346) Diagnoses Type 2 diabetes mellitus without complication, with long-term current use of insulin E11.9; Z79.4 Diabetes mellitus type: type 2 Diabetes mellitus retirement insulin use: with joint terminal attack controller use Diabetes mellitus complication status: without complication Benign essential hypertension I10 Palpitations R00.2 Migraine without status migrainosus, not intractable, unspecified migraine type G43.909 Migraine type: unspecified Status migrainosus presence: without status migrainosus Intractability: not intractable Elevated LFTs R79.89 Gastroesophageal reflux disease without esophagitis K21.9 Esophagitis presence: without esophagitis Bile salt-induced diarrhea K90.89 Right ankle pain, unspecified chronicity M25.571 Chronicity: unspecified Vitamin D deficiency E55.9 Nephrolithiasis N20.0 Obesity (BMI 30-39.9) E66.9 Additional Codes PHQ-9 - 80865 - PHQ-9 Billing: Yes ([id number]) Assessment & Plan Assessment & Plan (1) Diabetes mellitus: Code(s): E11.9 - Type 2 diabetes mellitus without complications Category: Medical Qualifiers: Diabetes mellitus type: type 2 Diabetes mellitus retirement insulin use: with joint terminal attack controller use Diabetes mellitus complication status: without complication Qualified Code(s): E11.9 - Type 2 diabetes mellitus without complications; Z79.4 - tank terminal gauger (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 of insulin Plan: Her HgbA1c remains unchanged at 5.8% on her labs done last week (was also at 5.8% a few months ago) - goal is ideally <6.5% so she IS at goal Reinforced diabetic diet Continue Metformin 500 mg BID; she could not tolerate Farxiga 10 mg QD due to increased urinary symptoms Will recheck her labs in 4 months for follow up (2) Benign essential hypertension: Code(s): I10 - Essential (primary) hypertension Category: Medical Plan: Reinforced low sodium diet - goal is systolic BP of at least 120 to 130 mm or less Continue Rvjqjwbawl-Hzuiklgdgl-CNSJ 40-5-25 mg QD and Metoprolol ER 25 mg QD (3) Palpitations: Comment: Dx with SVT, 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 Code(s): R00.2 - Palpitations Category: Medical Plan: She has been seen and followed by cardiology for this issue in the past but she has not been back to see them in over 3 years She was supposedly advised at her last appointment with them that she can just see them on an as-needed basis Echocardiogram done in 2017 showed normal LVEF, normal wall motion with no significant valvular abnormality; 30-day LUAN showed only sinus rhythm with no evidence of arrhythmias She was initially trialed on Metoprolol ER, which she states has kept her arrhythmias and palpitations mostly under control with only occasional episodes felt since Continue Metoprolol ER 25 mg QD (4) Migraine: Code(s): G43.909 - Migraine, unspecified, not intractable, without status migrainosus Category: Medical Qualifiers: Migraine type: unspecified Status migrainosus presence: without status migrainosus Intractability: not intractable Qualified Code(s): G43.909 - Migraine, unspecified, not intractable, without status migrainosus Plan: Stable/controlled Reinforced avoidance of migraine triggers Continue Ibuprofen 800 mg PRN for symptomatic relief (5) Elevated LFTs: Code(s): R79.89 - Other specified abnormal findings of blood chemistry Category: Medical Plan: Patient is advised that her LFTs have improved significantly on her recent labs These are likely related to her weight (hepatosteatosis) and her losing weight consistently over the past year has helped get her LFTs down and they are now almost back to normal We will continue to monitor her LFTs regularly (6) GERD (gastroesophageal reflux disease): Code(s): K21.9 - Gastro-esophageal reflux disease without esophagitis Category: Medical Qualifiers: Esophagitis presence: without esophagitis Qualified Code(s): K21.9 - Gastro-esophageal reflux disease without esophagitis Plan: Dietary restrictions reinforced Continue Pantoprazole 40 mg QD (7) Bile salt-induced diarrhea: Code(s): 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 Category: Medical Plan: This is primarily due to her cholecystectomy Continue Carafate 1 gm QD Patient is again reminded to avoid eating fried, greasy or oily foods to minimize her symptoms - she appears to be managing well so far (8) Right ankle pain: Code(s): M25.571 - Pain in right ankle and joints of right foot Category: Medical Qualifiers: Chronicity: unspecified Qualified Code(s): M25.571 - Pain in right ankle and joints of right foot Plan: S/P ORIF in 09/[address] Calvillo for a trimalleolar fracture and there are concerns of possible hardware loosening or migration X-rays of the right ankle done a few months ago revealed (+) findings of prior lateral plate and screw fixation of the lateral malleolus, with no hardware loosening or complications. The ankle mortise is intact and the talar dome is normal. There are mild degenerative changes of the ankle joint. No evidence of joint effusion, with (+) small plantar calcaneal spur Patient states that her ankle now just bothers her when it gets very cold weather-barnes and she is otherwise doing okay without any significant issues with her mobility (9) Vitamin D deficiency: Code(s): E55.9 - Vitamin D deficiency, unspecified Category: Medical Plan: Continue Vitamin D2 39709 units once a week (10) Nephrolithiasis: Code(s): N20.0 - Calculus of kidney Category: Medical Plan: (+) 7 mm calculus at the left UVJ with hydronephrosis seen on CT last year (2023) S/P cystoscopy, stone basketing from left ureteral orifice and left stent placement Patient states that she has not had any flare ups of her urinary tract symptoms or issues with kidney stones since Her most recent renal US showed only a 2 mm non-obstructing right renal calculus with no other abnormalities seen She will be getting a repeat renal US next year prior to her urology follow up appt Follow up with urology as scheduled (11) Obesity (BMI 30-39.9): Code(s): E66.9 - Obesity, unspecified Category: Medical Plan: Reinforced diet/exercise as tolerated/lose weight Plan Follow up in 4 months Orders: Orders Comprehensive Spelter. Panel Fast 4 Months E78.00 - Pure hypercholesterolemia, unspecified TSH reflex Free T4 4 Months E78.00 - Pure hypercholesterolemia, unspecified Vitamin D 25-OH Total 4 Months E55.9 - Vitamin D deficiency, unspecified Complete Blood Count Auto Diff 4 Months D64.9 - Anemia, unspecified Lipid Panel 4 Months E78.00 - Pure hypercholesterolemia, unspecified UA CC w/rflx Micro + Cult 4 Months R30.0 - Dysuria Microalbumin, Random (w Creat) 4 Months E11.9 - Type 2 diabetes mellitus without complications Hemoglobin A1c 4 Months E11.9 - Type 2 diabetes mellitus without complications
[2025-08-30 10:06] VITALS: BP 120/68; PULSE 62; TEMP 36.2; O2SAT 95; BMI 32.6
== END 2025-08-30 10:24 | disposition home or self-care (01) ==
LOC: HO.HMCH 09:51
PROVIDERS: PCP Internal Medicine; Visit Provider Internal Medicine
DX: E11.9 Type 2 diabetes mellitus without complications (principal); Z79.4 Long term (current) use of insulin; E66.9 Obesity, unspecified; Z68.32 Body mass index [BMI] 32.0-32.9, adult; I10 Essential (primary) hypertension; R00.2 Palpitations; G43.909 Migraine, unspecified, not intractable, without status migrainosus; R79.89 Other specified abnormal findings of blood chemistry; K21.9 Gastro-esophageal reflux disease without esophagitis; K90.89 Other intestinal malabsorption; M25.571 Pain in right ankle and joints of right foot; E55.9 Vitamin D deficiency, unspecified; N20.0 Calculus of kidney

== ENCOUNTER → 2025-08-30 09:50 | Outpatient (BNVA) | payer BC, SELFPAY | PROVIDERS: PCP Internal Medicine; Visit Provider Internal Medicine | DX: E11.9 Type 2 diabetes mellitus without complications (principal); I10 Essential (primary) hypertension; R00.2 Palpitations; G43.909 Migraine, unspecified, not intractable, without status migrainosus; R79.89 Other specified abnormal findings of blood chemistry; K21.9 Gastro-esophageal reflux disease without esophagitis; K90.89 Other intestinal malabsorption; M25.571 Pain in right ankle and joints of right foot; E55.9 Vitamin D deficiency, unspecified; N20.0 Calculus of kidney; E66.9 Obesity, unspecified; Z68.32 Body mass index [BMI] 32.0-32.9, adult | CPT/HCPCS: 96127 ==

== ENCOUNTER 2025-09-24 08:36 | Outpatient (AMB) | payer BC, SELFPAY ==
--- NOTE | 2025-09-24 08:39 | A.OFFVIS_ITS ---
Intake Visit Reasons: 3M Ultrasound/[facility](set) Intake Note: Reason for Visit: Ultrasound/L[facility]ol[facility] Results Urology Meds: None Blood Thinners: None Labs: BUN: 20 Creatinine: 0.77 A1C: 5.8 Calcium: 9.9 (08/24/2025) Imaging: Renal Ultrasound- 06/15/2025 [facility] Report: Completed Last PVR: None Food Technologist Required: No Accompanied by: Self / Same As Patient Allergies carbamazepine (From Tegretol) Allergy (Intermediate, Verified 09/24/25 08:39) RASH divalproex sodium (From Depakote) Allergy (Intermediate, Verified 09/24/25 08:39) RASH Iodinated Contrast Media (IV Dye, Iodine Containing) Allergy (Intermediate, Verified 09/24/25 08:39) HIVES dapagliflozin (From Farxiga) Adverse Reaction (Severe, Verified 09/24/25 08:39) loss of bladder control HPI Comments Details: Monique is a pleasant female. She is a patient Dr. Guy. She is seen for the following urologic conditions - nephrolithiasis Recent imaging showed stones left side Trial allopurinol Minimal symptoms Six-month follow-up imaging may need intervention Nephrolithiasis Left distal ureteric stone - with intervention 03/04 Prior stone passage without intervention Stone analysis - 03/04 calcium oxalate dihydrate 80% Imaging - 03/04 distal left ureteric stone with hydroureteronephrosis - 05/04 renal ultrasound question 4 mm right - 11/05 renal ultrasound no evidence of stones - 12/07 renal ultrasound possible small stone 2 mm right, nothing left - 07/08 renal ultrasound 2 x 9 mm stones left upper pole 24 hour urine - 05/04 borderline oxalate, and good volume, low calcium, moderate salt - dietary advice provided Therapeutic plan - above [facility] Medical History Elevated LFTs Pure hypercholesterolemia Diabetes mellitus SVT (supraventricular tachycardia) (Unknown) Obesity (BMI 30-39.9) Vitamin D deficiency GERD (gastroesophageal reflux disease) Migraine Benign essential hypertension Surgical History History of colonoscopy (~05/28/19) History of ankle surgery S/P appendectomy S/P breast biopsy S/P cholecystectomy Family History Father Heart disease Hypertension Mother Heart disease Hypertension Diabetes mellitus Maternal Grandmother No problems noted. Maternal Grandfather No problems noted. Paternal Grandfather No problems noted. 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 While every effort has been made to ensure accuracy shower screen installer errors may have been included. Imaging studies, laboratory and physical exam results were discussed and reviewed in detail. No major barriers to patient understanding were identified. An opportunity to ask questions regarding the treatment plan was provided. All questions were answered. The patient expressed understanding and agreement with the above treatment plan. The patient is aware they should contact our office by phone for worsening of their current condition or the appearance of new urologic symptoms. Compliance is encouraged with any medications and followup testing that is ordered. It is a privilege to participate in the urologic care of your patient. If you have any questions or concerns regarding treatment for the above conditions, or other urologic issues, please do not hesitate to contact me. The office telephone contact is [phone]. Sincerely, Dr Jono Loyola MD, [facility] - Urology Compassionate Specialist Care for the Genitourinary System Coding Level of Care Code Est Pt Level 4 (16527) Diagnoses Nephrolithiasis N20.0
== END 2025-09-24 09:30 | disposition home or self-care (01) ==
LOC: HO.HUSH 08:36
PROVIDERS: PCP Internal Medicine; Visit Provider Urology
DX: N20.0 Calculus of kidney (principal)
CPT/HCPCS: 99214